=== PATIENT | female | born 1950 | race Caucasian/White ===

== ENCOUNTER 2016-09-17 10:23 | Inpatient (IN) | payer MEDICARE, BC ==
[2016-09-17 11:08] LABS: Anisocytosis Moderate; Basophils % (A) 0 %; CH 30.2; CHCM 29.2; Eosinophils # (A) 0.1 k/uL (0-0.7); Eosinophils % (A) 1 %; HCT 25.4 % (34.0-46.0); HDW 3.09; HGB 7.4 gm/dL (11.4-16.0); Hypochromasia Marked; Large Platelets Flag Slight; Luc # (Auto) 0.09; Luc % (Auto) 1; Lymphocytes # (A) 1.3 k/uL (1.0-4.8); Lymphocytes % (A) 18 %; MCH 30.5 pg (25.0-35.0); MCHC 29.2 g/dL (31.0-37.0); MCV 104.5 fL (80.0-100.0); Macrocytosis Marked; Mean Platelet Volume 11.8; Monocytes # (A) 0.4 k/uL (0-1.0); Monocytes % (A) 6 %; Neutrophils # (A) 4.9 k/uL (1.3-7.7); Neutrophils % (A) 72 %; RBC 2.43 m/uL (3.80-5.40); RDW 20.4 % (11.5-15.5); WBC 6.8 k/uL (3.8-10.6); WBC (Perox) 6.78
--- NOTE | 2016-09-17 11:16 | ED ---
Weakness HPI - General Chief complaint: Recheck/Abnormal Lab/Rx Stated complaint: Anemia Time Seen by Provider: 09/17/16 10:25 Source: patient, EMS Mode of arrival: EMS Limitations: no limitations - History of Present Illness Initial comments: This patient is a 65-year-old woman who arrives here from dialysis with the complaint that she has been feeling very fatigued, run down, and having generalized weakness. The symptoms have been going on for couple of days. Prior to this she had noted about 3-4 days of dark tarry stool, but states that the last bowel movements that she had yesterday and today did not have dark tarry stool. The patient had gone for dialysis this morning, and when her hemoglobin was checked it was reported to be 7.2. She is denying chest pain, dyspnea, syncope, but does get lightheaded. The patient denies abdominal or perianal pain. She denies nausea, vomiting, and hematemesis. MD Complaint: generalized weakness, lack of energy -: days(s) Location: generalized Improves with: none Worsens with: exertion Context: history of similar Associated Symptoms: dark stools - Related Data Home Medications Medication Instructions Recorded Confirmed ALPRAZolam [Xanax] 0.5 mg PO TID 04/07/14 09/17/16 Cinacalcet HCl [Sensipar] 30 mg PO W/SUPPER 04/07/14 09/17/16 HYDROcodone/APAP 10-325MG [[place] 1 tab PO Q6H PRN 04/07/14 09/17/16 10-325] Montelukast [Singulair] 10 mg PO HS 04/07/14 09/17/16 Simvastatin [Zocor] 40 mg PO HS 08/18/15 09/17/16 Cinacalcet HCl [Sensipar] 90 mg PO W/SUPPER 04/02/16 09/17/16 Escitalopram [Lexapro] 40 mg PO DAILY 04/02/16 09/17/16 Tiffanie's Leg Cramp Tab 2 - 3 tab PO Q6H PRN 04/02/16 09/17/16 rOPINIRole HCL [Ropinirole HCl] 2 mg PO HS 04/02/16 09/17/16 Cevimeline HCl 30 mg PO DAILY 05/28/16 09/17/16 Insulin Aspart [NovoLOG] See Protocol SQ ACHS 05/28/16 09/17/16 Calcium Acetate [PhosLo] 667 mg PO TID 09/17/16 09/17/16 Clopidogrel Bisulfate [Plavix] 75 mg PO DAILY 09/17/16 09/17/16 Docusate [Colace] 100 mg PO BID 09/17/16 09/17/16 Midodrine HCl [ProAmatine] 7.5 mg PO MOWEFR PRN 09/17/16 09/17/16 Previous Rx's Medication Instructions Recorded Pantoprazole Sodium [Protonix] 40 mg PO DAILY #30 tablet. 04/04/16 Darbepoetin Matheus [Aranesp] 40 mcg SQ Q7D #4 syringe 09/22/16 Folic Acid-Vit B Complex-Vit C 1 each PO DAILY #30 cap 09/22/16 [Nephrocaps] Allergies Allergy/AdvReac Type Severity Reaction Status Date / Time adhesive Allergy Rash/Hives Verified 09/17/16 11:22 Sulfa (Sulfonamide Allergy Rash/Hives Verified 09/17/16 11:22 Antibiotics) sulfacetamide sodium Allergy Unknown Verified 09/17/16 11:22 [From Sulfamide] Review of Systems ROS Statement: Those systems with pertinent positive or pertinent negative responses have been documented in the HPI. ROS Other: All systems not noted in ROS Statement are negative. Constitutional: Reports: weakness (Generalized weakness, no focal deficit.). Denies: fever, chills Respiratory: Denies: cough, dyspnea Cardiovascular: Denies: chest pain, palpitations, orthopnea, edema, syncope Gastrointestinal: Reports: melena. Denies: abdominal pain, nausea, vomiting, diarrhea, constipation, hematochezia Musculoskeletal: Denies: back pain Skin: Denies: rash Neurological: Denies: headache, weakness, numbness Hematological/Lymphatic: Denies: easy bleeding Past Medical History Past Medical History: Asthma, Coronary Artery Disease (CAD), Chest Pain / Angina , CVA/TIA, Diabetes Mellitus, Dialysis, Hyperlipidemia, Myocardial Infarction ( [place]), Renal Disease Additional Past Medical History / Comment(s): kidney failure, on dialysis; adult scoliosis right hip; cva in 2010 - no residual other than eyes tear frequently; heart valve closed up 02/2013, left eye macular degeneration. Hypotension with systolic blood pressures normally running below 90 and diastolic pressure below 60. Last Myocardial Infarction Date:: 02/2013 History of Any Multi-Drug Resistant Organisms: MRSA Date of last positivie culture/infection: 2009 MDRO Source:: Wound-not specified with MRSA & MDRO Acinetobacter Past Surgical History: Adenoidectomy, Cardiac Valve Replacement, Coronary Bypass /CABG, Heart Catheterization, Tonsillectomy Additional Past Surgical History / Comment(s): cabg sep 2009 x 6 vessels; AV replaced jun 2011, arthroscopies bhavya ankles, Past Anesthesia/Blood Transfusion Reactions: No Reported Reaction Type of Cardiac Device: Permanent Pacemaker Device Placement Date:: 06/04 Past Psychological History: No Psychological Hx Reported Smoking Status: Former smoker Past Alcohol Use History: Rare Additional Past Alcohol Use History / Comment(s): "couple sips of beer throughout the year" started smoking at age 14 smoked 1 ppd, quit in 1981 Past Drug Use History: None Reported - Past Family History Father Family Medical History: Congestive Heart Failure (CHF), Diabetes Mellitus Mother Family Medical History: Diabetes Mellitus Additional Family Medical History / Comment(s): blocked carotids; kidney failure Sister(s) Family Medical History: Cancer General Exam Limitations: no limitations General appearance: alert, in no apparent distress, obese Head exam: Present: atraumatic, normocephalic Eye exam: Present: normal appearance, other (Pallor). Absent: scleral icterus, conjunctival injection ENT exam: Present: mucous membranes dry Neck exam: Present: normal inspection Respiratory exam: Present: normal lung sounds bilaterally. Absent: respiratory distress, wheezes, rales, rhonchi, stridor Cardiovascular Exam: Present: regular rate, normal rhythm, systolic murmur. Absent: diastolic murmur, rubs, gallop GI/Abdominal exam: Present: soft. Absent: distended, tenderness, guarding, rebound Extremities exam: Present: normal inspection, normal capillary refill, other ( Right upper extremity access graft has a bruit and thrill.). Absent: pedal edema, calf tenderness Back exam: Absent: CVA tenderness (R), CVA tenderness (L) Neurological exam: Present: alert, CN II-XII intact. Absent: motor sensory deficit Skin exam: Present: warm, dry, intact, pallor. Absent: rash Course Vital Signs 09/17/16 09/17/16 09/17/16 10:24 10:46 11:51 Temperature 97.5 F L Pulse Rate 89 76 Pulse Rate [ Decorative Greens Cutter ] Respiratory 24 Rate Blood Pressure 74/28 62/27 Blood Pressure [Right Calf] O2 Sat by Pulse 92 L 98 Oximetry 09/17/16 09/17/16 09/17/16 12:12 12:32 13:15 Temperature Pulse Rate 77 80 76 Pulse Rate [ Decorative Greens Cutter ] Respiratory 16 Rate Blood Pressure 74/34 61/41 62/34 Blood Pressure [Right Calf] O2 Sat by Pulse 94 L Oximetry 09/17/16 09/17/16 09/17/16 14:05 15:58 16:16 Temperature 97.1 F L Pulse Rate 65 78 77 Pulse Rate [ Decorative Greens Cutter ] Respiratory 20 20 18 Rate Blood Pressure 64/37 70/31 70/31 Blood Pressure [Right Calf] O2 Sat by Pulse 95 99 Oximetry 09/17/16 09/17/16 09/17/16 16:25 16:30 17:00 Temperature 97.4 F L 97.4 F L Pulse Rate 78 72 76 Pulse Rate [ Decorative Greens Cutter ] Respiratory 18 20 20 Rate Blood Pressure 74/31 60/32 77/42 Blood Pressure [Right Calf] O2 Sat by Pulse 98 Oximetry 09/17/16 09/17/16 09/17/16 17:30 18:00 18:30 Temperature 97.4 F L 97.2 F L 97.1 F L Pulse Rate 69 68 74 Pulse Rate [ Decorative Greens Cutter ] Respiratory 16 18 18 Rate Blood Pressure 78/38 67/32 71/30 Blood Pressure [Right Calf] O2 Sat by Pulse 98 96 Oximetry 09/17/16 19:21 Temperature 97.9 F Pulse Rate Pulse Rate [ 76 Decorative Greens Cutter ] Respiratory 18 Rate Blood Pressure Blood Pressure 65/34 [Right Calf] O2 Sat by Pulse 98 Oximetry EKG Findings - EKG Comments: EKG Findings:: The twelve-lead EKG shows what appears to be a biventricular pace maker with a paced rhythm at 82 bpm. - EKG Results: EKG: interpreted by ZAHRAD Procedures - Central Line Placement Left Femoral Consent Obtained: written consent Time Out Performed: Yes Patient Placed on Monitor/Pulse Ox: Yes Prep: mask, gown, gloves Central Line Prep: Chlorhexidine scrub Local Anesthesia Used: Lidocaine 1% Ultrasound Used for Placement: Yes Central Line Lumen Inserted: triple Central Line Position: good blood return, all ports aspirated, flushed, capped, sutured in place with 2-0 silk Dressing Applied: Tegaderm Patient Tolerated Procedure: other (Initially attempted on the right without success, switch to the left and placed with no, dictation.) Medical Decision Making - Medical Decision Making Patient is a 65-year-old woman sent from dialysis for anemia and also concerns about her blood pressure. The patient is adamant that her blood pressure is always measured as hypotensive. She states that she has been told time again that when her blood pressures taken that it needs to have 30 mmHg added to it. The patient is alert and mentating well. The patient only had a 22-gauge peripheral IV, not suitable for transfusion therefore patient had central line placed by myself. I did attempt once in the right femoral, and was not able to access the vein. Switch to the left and this was performed without difficulty. Case discussed with admitting physician and also with Dr. Chung who saw the patient in the emergency department. - Lab Data Result diagrams: 09/22/16 07:12 09/22/16 07:12 Lab Results 09/17/16 09/17/16 09/17/16 Range/Units 10:50 10:50 10:50 WBC 6.8 (3.8-10.6) k/uL RBC 2.43 L (3.80-5.40) m/uL Hgb 7.4 L (11.4-16.0) gm/dL Hct 25.4 L (34.0-46.0) % MCV 104.5 H (80.0-100.0) fL MCH 30.5 (25.0-35.0) pg MCHC 29.2 L (31.0-37.0) g/dL RDW 20.4 H (11.5-15.5) % Plt Count 129 L (150-450) k/uL Neutrophils % 72 % Lymphocytes % 18 % Monocytes % 6 % Eosinophils % 1 % Basophils % 0 % Neutrophils # 4.9 (1.3-7.7) k/uL Lymphocytes # 1.3 (1.0-4.8) k/uL Monocytes # 0.4 (0-1.0) k/uL Eosinophils # 0.1 (0-0.7) k/uL Basophils # 0.0 (0-0.2) k/uL Hypochromasia Marked Anisocytosis Moderate Macrocytosis Marked PT 14.2 H (9.0-12.0) sec INR 1.5 (<1.1) APTT 24.3 (22.0-30.0) sec Sodium 143 (137-145) mmol/L Potassium 4.0 (3.5-5.1) mmol/L Chloride 94 L (98-107) mmol/L Carbon Dioxide 32 H (22-30) mmol/L Anion Gap 17 mmol/L BUN 16 (7-17) mg/dL Creatinine 1.89 H (0.52-1.04) mg/dL Est GFR (MDRD) Af Amer 32 (>60 ml/min/1.73 sqM) Est GFR (MDRD) Non-Af 27 (>60 ml/min/1.73 sqM) Glucose 165 H (74-99) mg/dL Plasma Lactic Acid Taco (0.7-2.0) mmol/L Calcium 9.1 (8.4-10.2) mg/dL Magnesium 2.2 (1.6-2.3) mg/dL Total Bilirubin 1.3 (0.2-1.3) mg/dL AST 61 H (14-36) U/L ALT 62 H (9-52) U/L Alkaline Phosphatase 201 H (38-126) U/L Troponin I (0.000-0.034) ng/mL Total Protein 7.3 (6.3-8.2) g/dL Albumin 3.8 (3.5-5.0) g/dL Blood Type Blood Type Recheck Antibody Screen Crossmatch Spec Expiration Date 09/17/16 09/17/16 09/17/16 Range/Units 10:50 10:50 10:50 WBC (3.8-10.6) k/uL RBC (3.80-5.40) m/uL Hgb (11.4-16.0) gm/dL Hct (34.0-46.0) % MCV (80.0-100.0) fL MCH (25.0-35.0) pg MCHC (31.0-37.0) g/dL RDW (11.5-15.5) % Plt Count (150-450) k/uL Neutrophils % % Lymphocytes % % Monocytes % % Eosinophils % % Basophils % % Neutrophils # (1.3-7.7) k/uL Lymphocytes # (1.0-4.8) k/uL Monocytes # (0-1.0) k/uL Eosinophils # (0-0.7) k/uL Basophils # (0-0.2) k/uL Hypochromasia Anisocytosis Macrocytosis PT (9.0-12.0) sec INR (<1.1) APTT (22.0-30.0) sec Sodium (137-145) mmol/L Potassium (3.5-5.1) mmol/L Chloride (98-107) mmol/L Carbon Dioxide (22-30) mmol/L Anion Gap mmol/L BUN (7-17) mg/dL Creatinine (0.52-1.04) mg/dL Est GFR (MDRD) Af Amer (>60 ml/min/1.73 sqM) Est GFR (MDRD) Non-Af (>60 ml/min/1.73 sqM) Glucose (74-99) mg/dL Plasma Lactic Acid Taco 2.9 H* (0.7-2.0) mmol/L Calcium (8.4-10.2) mg/dL Magnesium (1.6-2.3) mg/dL Total Bilirubin (0.2-1.3) mg/dL AST (14-36) U/L ALT (9-52) U/L Alkaline Phosphatase (38-126) U/L Troponin I 0.431 H* (0.000-0.034) ng/mL Total Protein (6.3-8.2) g/dL Albumin (3.5-5.0) g/dL Blood Type A Positive Blood Type Recheck No Antibody Screen NEGATIVE Crossmatch See Detail Spec Expiration Date 09/20/2016 - 234909/17/16 Range/Units 14:26 WBC (3.8-10.6) k/uL RBC (3.80-5.40) m/uL Hgb (11.4-16.0) gm/dL Hct (34.0-46.0) % MCV (80.0-100.0) fL MCH (25.0-35.0) pg MCHC (31.0-37.0) g/dL RDW (11.5-15.5) % Plt Count (150-450) k/uL Neutrophils % % Lymphocytes % % Monocytes % % Eosinophils % % Basophils % % Neutrophils # (1.3-7.7) k/uL Lymphocytes # (1.0-4.8) k/uL Monocytes # (0-1.0) k/uL Eosinophils # (0-0.7) k/uL Basophils # (0-0.2) k/uL Hypochromasia Anisocytosis Macrocytosis PT (9.0-12.0) sec INR (<1.1) APTT (22.0-30.0) sec Sodium (137-145) mmol/L Potassium (3.5-5.1) mmol/L Chloride (98-107) mmol/L Carbon Dioxide (22-30) mmol/L Anion Gap mmol/L BUN (7-17) mg/dL Creatinine (0.52-1.04) mg/dL Est GFR (MDRD) Af Amer (>60 ml/min/1.73 sqM) Est GFR (MDRD) Non-Af (>60 ml/min/1.73 sqM) Glucose (74-99) mg/dL Plasma Lactic Acid Taco 1.0 (0.7-2.0) mmol/L Calcium (8.4-10.2) mg/dL Magnesium (1.6-2.3) mg/dL Total Bilirubin (0.2-1.3) mg/dL AST (14-36) U/L ALT (9-52) U/L Alkaline Phosphatase (38-126) U/L Troponin I (0.000-0.034) ng/mL Total Protein (6.3-8.2) g/dL Albumin (3.5-5.0) g/dL Blood Type Blood Type Recheck Antibody Screen Crossmatch Spec Expiration Date Disposition Clinical Impression: Anemia, Congestive heart failure (CHF), Hypotension Disposition: ADMITTED IP TO THIS [facility] Condition: Stable
[2016-09-17 11:18] LABS: Calcium 9.1 mg/dL (8.4-10.2); Magnesium 2.2 mg/dL (1.6-2.3); Total Bilirubin 1.3 mg/dL (0.2-1.3); Total Protein 7.3 g/dL (6.3-8.2)
[2016-09-17 11:25] LABS: INR 1.5 (<1.1); Partial Thromboplastin Time 24.3 sec (22.0-30.0); Prothrombin Time 14.2 sec (9.0-12.0)
[2016-09-17] MEDS ORDERED: IV VANCOMYCIN PER PHARMACY 1 EACH MISC MISCELLANE PRN (12:52)
[2016-09-17] MEDS ORDERED: SODIUM CHLORIDE 0.9% 500 ML IV STA (12:53)
[2016-09-17] MEDS ORDERED: VANCOMYCIN 1,500 MG in SODIUM CHLORIDE 0.9% 250 ML IVPB STA ×2 (12:58→13:03)
--- NOTE | 2016-09-17 13:37 | XR ---
EXAMINATION TYPE: XR chest 1V portable DATE OF EXAM: 09/17/2016 1:19 PM Comparison: 04/04/2016 Clinical History: 65-year-old female hypotension Findings: Median sternotomy wires are present with post-CABG clips in the mediastinum. Left-sided ICD generator with right atrial, right ventricular, and coronary sinus leads. Heart remains mildly enlarged. There is diffuse interstitial and vascular prominence with continued p atchy consolidation mid and lower right lung with a blunted right costophrenic angle. Impression: 1. Overall stable exam. Correlate for CHF and interstitial pulmonary edema. 2. Continued small right pleural effusion with adjacent atelectasis and/or consolidation.
[2016-09-17] MEDS ORDERED: SODIUM CHLORIDE 0.9% 1,000 ML IV ONE (16:12)
[2016-09-17] MEDS ORDERED: MIDODRINE 5 MG TAB PO PRN (16:15)
[2016-09-17] MEDS ORDERED: CINACALCET 30 MG TAB PO SCH (17:30)
[2016-09-17] MEDS: HYDROcodone/APAP 10-325MG 1 EACH TAB PO PRN (18:39)
[2016-09-17 19:40] LABS: Glucose,Whole Blood 243 mg/dL (75-99)
--- NOTE | 2016-09-17 20:19 | CONS ---
DATE OF CONSULTATION: 09/17/2016 REASON FOR CONSULTATION: Hypotension and severe anemia. HISTORY OF PRESENTING ILLNESS: Ms. Prachi Hutchinson is a 65-year-old female who was seen, evaluated and examined in the emergency department. This patient presented into the hospital with problems associated with not feeling well, tired and fatigued while undergoing hemod[facility] at [facility]. Her symptoms going on for several days. With those problems, patient was checked and found to have a hemoglobin of 7.2. Patient was sent to the emergency department. She was found to be hypotensive, but, however, as per patient as well as family member present at bedside, she has a history of chronic hypotension. Past medical history is significant for: 1. Chronic persistent asthma. 2. Coronary artery disease. 3. History of cerebrovascular accident and TIA. 4. Diabetes mellitus. 5. Has been on hemodialysis. 6. Dyslipidemia. 7. Myocardial infarction. 8. Renal calculi. 9. Scoliosis on the right hip. 10. Stroke in the past. 11. History of heart surgery. 12. Left eye macular degeneration. 13. Chronic hypertension. PAST SURGICAL HISTORY: Significant for cardiac valve replacement (AV replaced in 2010), status post CABG, history of cardiac cath, angiogram, CABG x6 in 2009, history of arthroscopic knee surgeries, history of permanent pacemaker insertion. FAMILY HISTORY AND SOCIAL HISTORY: Smokes 1 pack per day. Has smoked close to 35 to 40 years, quit about 20 years ago. ( ) maybe 20 to 25 years; quit about close to 30 years ago. REVIEW OF SYSTEMS: ACCOUNTING ASSISTANT: Denies any seizure activity or loss of consciousness, hemiparesis, but does complain of generalized weakness. CARDIORESPIRATORY: Otherwise unremarkable and noncontributory. GI/: Unremarkable. MUSCULOSKELETAL/DERMATOLOGICAL: Unremarkable and noncontributory. On examination, blood pressure is 70/30 improved to 80/60 with blood transfusion, respiratory rate 18, pulse 74, temperature 97, saturation of 96% on 2 liters oxygen. HEENT EXAMINATION: Otherwise unremarkable. NECK: Slightly prominent. No bruits present. LUNGS: Bilateral good air entry without significant rales, rhonchi, or rub. HEART: Regular rate and rhythm. ABDOMEN: Soft. EXTREMITIES: Trace edema. NEUROLOGICAL EXAMINATION: Otherwise, awake and alert. EKG revealed rate and rhythm. The chest x-ray performed in the emergency department reviewed as well, revealed mild interstitial edema with very small right-sided pleural effusion along with atelectasis cannot be excluded. Consolidation cannot be excluded as well. As per review of the hard copies a developing pneumonia appears to be present on the right side as well along with cardiomegaly. Other labs are reviewed which white cell count 6800, hemoglobin 7.4, hematocrit 25, platelet count 129,000. PT, INR is 14.8 and 1.5. PTT is 24. Lactic acid is 2.9 improved to 1.0, BUN and creatinine 16 and 0.89. The troponin is 0.431, AST and ALT 61 and 62. Alkaline phosphatase 201. IMPRESSION: 1. Right lower lobe pneumonia with small right-sided pleural effusion. Recommend to treat patient with empiric antibiotics in the form of IV Rocephin and repeat chest x-ray tomorrow. 2. Severe hypotension, relative chronic hypertension and severe anemia. We will monitor and observe. 3. Anemia likely related to chronic renal failure. Occult GI loss cannot be excluded. Patient will be placed on proton pump inhibitor and we will monitor hemoglobin closely by repeating the labs tomorrow. Patient is currently undergoing 2 units of packed RBC transfusion. The patient is being admitted to the ICU. Further recommendations pending as per clinical response of the patient.
[2016-09-17 20:38] VITALS: BMI 34.0
[2016-09-17] MEDS: CALCIUM ACETATE 667 MG CAP PO SCH (20:44)
[2016-09-17 21:14] LABS: Anisocytosis Moderate; CH 30.4; CHCM 29.7; HCT 24.9 % (34.0-46.0); HDW 4.04; HGB 7.2 gm/dL (11.4-16.0); Hypochromasia Marked; MCHC 28.9 g/dL (31.0-37.0); MCV 103.7 fL (80.0-100.0); Macrocytosis Marked; Mean Platelet Volume 11.1; Poikilocytosis Moderate; RDW 20.4 % (11.5-15.5); WBC 5.5 k/uL (3.8-10.6)
[2016-09-17] MEDS ORDERED: NALOXONE 0.4 MG/ML 1 ML VIAL IV PRN (21:26)
[2016-09-17] MEDS: ALPRAZolam 0.5 MG TAB PO SCH (21:56)
[2016-09-17] MEDS: ATORVASTATIN 20 MG TAB PO SCH (21:56)
[2016-09-17] MEDS: MONTELUKAST 10 MG TAB PO SCH (21:57)
[2016-09-17] MEDS: DOCUSATE 100 MG CAP PO SCH (21:57)
[2016-09-17 22:08] LABS: Hemoglobin A1C 6.1 % (4.2-6.1)
[2016-09-17] MEDS: INSULIN LISPRO (humaLOG) 300 UNIT/3 ML VIAL SQ SCH (23:22)
[2016-09-17 23:24] LABS: Glucose,Whole Blood 194 mg/dL (75-99)
[2016-09-18] MEDS: HYDROcodone/APAP 10-325MG 1 EACH TAB PO PRN ×2 (04:23→20:36)
[2016-09-18 04:44] LABS: Anisocytosis Moderate; Basophils % (A) 0 %; CH 30.6; CHCM 30.3; Eosinophils # (A) 0.2 k/uL (0-0.7); Eosinophils % (A) 3 %; HCT 28.6 % (34.0-46.0); HGB 8.5 gm/dL (11.4-16.0); Hypochromasia Marked; Luc # (Auto) 0.16; Luc % (Auto) 3; Lymphocytes # (A) 1.2 k/uL (1.0-4.8); Lymphocytes % (A) 19 %; MCH 30.7 pg (25.0-35.0); MCHC 29.9 g/dL (31.0-37.0); MCV 102.7 fL (80.0-100.0); Macrocytosis Moderate; Mean Platelet Volume 10.4; Monocytes # (A) 0.5 k/uL (0-1.0); Monocytes % (A) 8 %; Neutrophils # (A) 4.2 k/uL (1.3-7.7); Neutrophils % (A) 68 %; Poikilocytosis Moderate; RBC 2.79 m/uL (3.80-5.40); RDW 20.7 % (11.5-15.5); WBC 6.2 k/uL (3.8-10.6); WBC (Perox) 6.65
[2016-09-18 05:00] LABS: Calcium 9.1 mg/dL (8.4-10.2); Magnesium 2.2 mg/dL (1.6-2.3); Phosphorous 4.2 mg/dL (2.5-4.5); Potassium 3.4 mmol/L (3.5-5.1); Total Bilirubin 1.2 mg/dL (0.2-1.3)
[2016-09-18] MEDS ORDERED: POTASSIUM CHLORIDE 20 MEQ in WATER FOR INJECTION 1 100ML.BAG IVPB STA (06:12)
--- NOTE | 2016-09-18 07:28 | XR ---
EXAMINATION TYPE: XR chest 1V DATE OF EXAM: 09/18/2016 6:31 AM COMPARISON: 09/17/2016 HISTORY: Hypotension TECHNIQUE: Single frontal view of the chest is obtained. FINDINGS: Postsurgical change, cardiomegaly and cardiac device stable. Diffuse bilateral airspace bilateral effusion. Prominence the right paratracheal region. This could b e related to thyroid, vascular or adenopathy. No pneumothorax. IMPRESSION: 1. Diffuse bilateral airspace disease with probable fusion differential includes pulmonary edema or d iffuse pneumonia.
[2016-09-18 07:38] LABS: Glucose,Whole Blood 142 mg/dL (75-99)
[2016-09-18] MEDS: INSULIN LISPRO (humaLOG) 300 UNIT/3 ML VIAL SQ SCH ×4 (07:48→20:36)
[2016-09-18] MEDS: CALCIUM ACETATE 667 MG CAP PO SCH ×3 (07:50→16:59)
[2016-09-18] MEDS: PANTOPRAZOLE 40 MG TABLET PO SCH (07:52)
[2016-09-18] MEDS ORDERED: CLOPIDOGREL 75 MG TAB PO SCH (09:00)
--- NOTE | 2016-09-18 09:40 | PN ---
Ms. Prachi Hutchinson is a pleasant 65-year-old female. She has a history of chronic hypertension, chronic renal failure, came in to the hospital with severe anemia, pale appearance and worsening of hypotension. The patient has been found to have hemoglobin of 7.1 and required 2 units of packed RBC. Hemoglobin has improved to 8.5. Her blood pressure remains on very low side. She has good femoral pulses, which are bounding and palpable, but, however, she has poorly palpable pulses in the upper extremity. She is arousable, opens eyes, follows simple commands. No obvious distress present. In fact when I touch her being my hands ( ), she just jumped up. Her last set of vitals include blood pressure is 44/18, respiratory rate 18, respiratory rate 20, pulse 73, temperature 98, saturation 94%. HEENT EXAMINATION: Otherwise unremarkable. NECK: Supple without any lymphadenopathy, jugular venous distention or carotid bruit. LUNGS: Bilateral good air entry is present without significant rales, rhonchi or rub. HEART: Regular rate and rhythm. S1 and S2 audible. ABDOMEN: Soft. No rebound or rigidity. EXTREMITIES: Poor peripheral pulses. NEUROLOGICAL EXAMINATION: Awake and alert. Moving all 4 extremities. No focal neurological deficits. Labs are reviewed. Medications reviewed. White cell count 6200, hemoglobin 8.5 and hematocrit 28, platelet count of 103,000. Sodium is 139, potassium 3.4. BUN and creatinine 23 and 2.4. Glucose is 142. ALT is 53. AST is 34, alk phos of 160. The vancomycin is 15.2. Current medications reviewed. Patient is on Rocephin as well as vancomycin with pharmacy to re-dose. Culture results are pending. IMPRESSION: 1. Sepsis, systemic inflammatory response syndrome-like process, source is not clear. Patient is empirically being treated with broad-spectrum antibiotics. Blood and urine cultures have been drawn in the ER. Will monitor and observe now. 2. Hypotension, likely related to severe and profound vasculopathy and history of chronic hypotension. Would recommend to monitor and observe at this point of time. 3. Severe anemia, likely chronic in nature. Will monitor renal functions as well as hemoglobin very closely. Today's chest x-ray, I have reviewed it, given the presence of bilateral infiltrate; possible pneumonia cannot be excluded. Would recommend to maintain antibiotics for pneumonia. Will follow.
[2016-09-18] MEDS: ALPRAZolam 0.5 MG TAB PO SCH ×3 (10:27→20:37)
[2016-09-18] MEDS: CEVIMELINE 30 MG CAP PO SCH (10:28)
[2016-09-18] MEDS: DOCUSATE 100 MG CAP PO SCH ×2 (10:28→20:37)
[2016-09-18] MEDS: ESCITALOPRAM 20 MG TAB PO SCH (10:28)
[2016-09-18] MEDS: FOLIC ACID-VIT B COMPLEX-VIT C 1 CAP PO SCH (10:29)
[2016-09-18] MEDS ORDERED: VANCOMYCIN 1,500 MG in SODIUM CHLORIDE 0.9% 250 ML IVPB ONE (10:30)
--- NOTE | 2016-09-18 10:54 | P.NPCON ---
History of Present Illness - Reason for Consult end stage renal disease - History of Present Illness Reason for consultation: End-stage renal disease History of present illness: Patient is a 65-year-old female seen in renal consultation for end- stage renal disease. She is maintained on hemodialysis on a Tuesday schedule. Left upper extremity AV fistula. Patient was noted to be more dyspneic during hemodialysis yesterday and felt quite weak. She was subsequently sent to the hospital. Hemoglobin was 7.2 for which she did receive 1 unit of packed red blood cell transfusion yesterday and hemoglobin is up to 8.5 today. Denies any chest pain or shortness of breath. No vomiting or diarrhea. Currently having breakfast. No other complaints at this time. Vital signs are stable. General: The patient appeared well nourished and normally developed. HEENT: Head exam is unremarkable. Neck is without jugular venous distension. LUNGS: Lungs are clear to auscultation and percussion. Breath sounds decreased. HEART: Rate and Rhythm are regular. First and second heart sounds normal. No murmurs, rubs or gallops. ABDOMEN: Abdominal exam reveals normal bowel sounds. Non-tender and non- distended. No evidence of peritonitis. EXTREMITITES: No clubbing, cyanosis, or edema. Past Medical History Past Medical History: Asthma, Coronary Artery Disease (CAD), Chest Pain / Angina , CVA/TIA, Diabetes Mellitus, Dialysis, Hyperlipidemia, Myocardial Infarction ( [place]), Renal Disease Additional Past Medical History / Comment(s): kidney failure, on dialysis; adult scoliosis right hip; cva in 2010 - no residual other than eyes tear frequently; heart valve closed up 02/2013, left eye macular degeneration. Hypotension with systolic blood pressures normally running below 90 and diastolic pressure below 60. Last Myocardial Infarction Date:: 02/2013 History of Any Multi-Drug Resistant Organisms: MRSA Date of last positivie culture/infection: 2009 MDRO Source:: Wound-not specified with MRSA & MDRO Acinetobacter Past Surgical History: Adenoidectomy, Cardiac Valve Replacement, Coronary Bypass /CABG, Heart Catheterization, Tonsillectomy Additional Past Surgical History / Comment(s): cabg sep 2009 x 6 vessels; AV replaced jun 2011, arthroscopies bhavya ankles, Past Anesthesia/Blood Transfusion Reactions: No Reported Reaction Type of Cardiac Device: Permanent Pacemaker Device Placement Date:: 06/04 Past Psychological History: No Psychological Hx Reported Smoking Status: Former smoker Past Alcohol Use History: Rare Additional Past Alcohol Use History / Comment(s): "couple sips of beer throughout the year" started smoking at age 14 smoked 1 ppd, quit in 1981 Past Drug Use History: None Reported - Past Family History Father Family Medical History: Congestive Heart Failure (CHF), Diabetes Mellitus Mother Family Medical History: Diabetes Mellitus Additional Family Medical History / Comment(s): blocked carotids; kidney failure Sister(s) Family Medical History: Cancer Medications and Allergies Home Medications Medication Instructions Recorded Confirmed Type ALPRAZolam [Xanax] 0.5 mg PO TID 04/07/14 09/17/16 History Cinacalcet HCl [Sensipar] 30 mg PO W/SUPPER 04/07/14 09/17/16 History HYDROcodone/APAP 10-325MG [[place] 1 tab PO Q6H PRN 04/07/14 09/17/16 History 10-325] Montelukast [Singulair] 10 mg PO HS 04/07/14 09/17/16 History Simvastatin [Zocor] 40 mg PO HS 08/18/15 09/17/16 History Cinacalcet HCl [Sensipar] 90 mg PO W/SUPPER 04/02/16 09/17/16 History Escitalopram [Lexapro] 40 mg PO DAILY 04/02/16 09/17/16 History Tiffanie's Leg Cramp Tab 2 - 3 tab PO Q6H PRN 04/02/16 09/17/16 History rOPINIRole HCL [Ropinirole HCl] 2 mg PO HS 04/02/16 09/17/16 History Cevimeline HCl 30 mg PO DAILY 05/28/16 09/17/16 History Insulin Aspart [NovoLOG] See Protocol SQ ACHS 05/28/16 09/17/16 History Calcium Acetate [Phoslo] 667 mg PO TID 09/17/16 09/17/16 History Clopidogrel Bisulfate [Plavix] 75 mg PO DAILY 09/17/16 09/17/16 History Docusate [Colace] 100 mg PO BID 09/17/16 09/17/16 History Midodrine HCl [ProAmatine] 7.5 mg PO MOWEFR PRN 09/17/16 09/17/16 History Allergies Allergy/AdvReac Type Severity Reaction Status Date / Time adhesive Allergy Rash/Hives Verified 09/17/16 11:22 Sulfa (Sulfonamide Allergy Rash/Hives Verified 09/17/16 11:22 Antibiotics) sulfacetamide sodium Allergy Unknown Verified 09/17/16 11:22 [From Sulfamide] Physical Exam Vitals: Vital Signs Temp Pulse Pulse Resp BP BP Pulse Ox 09/18/16 08:00 97.9 F 73 19 43/22 93 L 09/18/16 07:45 72 19 39/16 93 L 09/18/16 07:00 73 20 44/18 94 L 09/18/16 06:00 83 22 34/20 94 L 09/18/16 05:00 77 21 33/20 96 09/18/16 04:00 98.3 F 72 76 22 31/23 94 L 09/18/16 03:00 74 25 H 35/22 94 L 09/18/16 02:00 71 20 33/24 94 L 09/18/16 01:36 98 F 70 19 35/21 98 09/18/16 01:00 67 24 35/21 96 09/18/16 00:27 98.2 F 70 21 40/22 95 09/18/16 00:00 98.2 F 69 76 19 37/16 98 09/17/16 23:18 69 20 35/21 96 09/17/16 23:12 97.9 F 72 20 96 09/17/16 23:00 71 18 35/21 95 09/17/16 22:00 75 20 97 09/17/16 21:00 74 16 97 09/17/16 20:00 98.5 F 74 76 19 65/34 100 09/17/16 19:21 97.9 F 76 18 65/34 98 09/17/16 18:30 97.1 F L 74 18 71/30 96 09/17/16 18:00 97.2 F L 68 18 67/32 98 09/17/16 17:30 97.4 F L 69 16 78/38 09/17/16 17:00 97.4 F L 76 20 77/42 09/17/16 16:30 97.4 F L 72 20 60/32 09/17/16 16:25 78 18 74/31 98 09/17/16 16:16 97.1 F L 77 18 70/31 Intake and Output 09/17/16 09/18/16 09/18/16 22:59 06:59 14:59 Intake Total 510 720 120 Output Total 0 0 Balance 510 720 120 Intake: IV 310 100 Potassium Chloride 20 meq 100 In Water For Injection 1 100ml.bag @ 50 mls/hr IVPB ONCE STA Rx#: [id number] blood product 310 Intake, IV Titration 20 Amount Sodium Chloride 0.9% 1, 20 000 ml @ 20 mls/hr IV . Q24H ONE Rx#:[id number] Oral 200 100 Blood Product 310 310 Rc As-1 Unit 310 [id number] Rc As-1 Unit 310 [id number] Output: Urine 0 0 Other: Weight 92.8 kg 92.8 kg Results - Lab Results Most recent lab results Calcium 9.1 mg/dL (8.4-10.2) 09/18/16 04:15 Phosphorus 4.2 mg/dL (2.5-4.5) 09/18/16 04:15 Magnesium 2.2 mg/dL (1.6-2.3) 09/18/16 04:15 09/18/16 04:15 09/18/16 04:15 Assessment and Plan Plan: Assessment: #1. End-stage renal disease maintained on hemodialysis on a Tuesday schedule. #2. Acute anemia. Status post 1 unit of packed red blood cell transfusion. Hemoglobin 8.5 today. Questionable GI bleed. #3. Chronic kidney disease mineral bone disease. #4. Chronic hypotension maintained on Midodrine. Plan: Hemodialysis Tuesday. Check iron studies. Start Aranesp. Maintain PhosLo with meals. Nephrocaps daily. Continue to monitor hemoglobin closely and transfuse as needed. Consider GI consult. Thank you for the consultation. I will continue to follow the patient with you during her hospital stay.
[2016-09-18] MEDS ORDERED: DARBEPOETIN ALFA 40 MCG/0.4 ML SYRINGE SQ SCH (11:00)
[2016-09-18 12:51] LABS: Glucose,Whole Blood 194 mg/dL (75-99)
[2016-09-18 17:17] LABS: Glucose,Whole Blood 174 mg/dL (75-99)
[2016-09-18] MEDS: CINACALCET 30 MG TAB PO SCH (17:54)
--- NOTE | 2016-09-18 19:02 | HP ---
DATE OF ADMISSION: CHIEF COMPLAINT: Fatigue and weakness. HISTORY OF PRESENT ILLNESS: This 65-year-old woman with a past history of asthma, history of coronary artery disease, history of diabetes mellitus, history of chronic renal disease on hemodialysis, history of adenoidectomy, history of MRSA, history of cardiac valve replacement, being followed by in the outpatient setting was complaining of tiredness and weakness. The patient was taken from the hemodialysis and patient came to [facility]. Hemoglobin is found to be 7.2. The patient admitted for further evaluation and treatment in the ICU. Patient being closely monitored. The patient's blood pressure also was in systolic 40s consistently but the patient is doing fine otherwise. The patient apparently had condition causing severe peripheral vascular disease, which was diagnosed in . Results not available at this time. Please refer to previous notes and Dr. Chung's notes for further details. There is no history of fever, rigors. No history of headache, loss of consciousness, seizures. PAST MEDICAL HISTORY: History of asthma, CAD, history of chest pain, CVA, TIA, diabetes mellitus type 2, hemodialysis, hyperlipidemia, history of myocardial infarction, history of MRSA. MEDICATIONS: Prior to admission include home medications are: 1. Plavix 75 mg p.o. daily. 2. Primatene 7.5 Tuesday, Tuesday, Tuesday. 3. Colace 100 mg p.o. b.i.d. 4. PhosLo 667 t.i.d. 6. Xanax 0.5 t.i.d. 8. Lexapro 40 mg p.o. daily. 9. Sensipar 90 mg supper and 30 mg supper. 10. Requip 2 mg q.h.s. 11. Zocor 40 mg q.h.s. 12. Protonix 40 mg daily. 13. Singulair 10 mg q.h.s. 14. NovoLog a.c. and at bedtime. ALLERGIES: ADHESIVES, SULFA, SULFONAMIDE. FAMILY HISTORY: History of CHF, diabetes mellitus, carotid disease and kidney failure. SOCIAL HISTORY: Previous history of smoking. No history of current smoking or alcohol intake. REVIEW OF SYSTEMS: ENT: No diminished hearing, diminished vision. CARDIOVASCULAR: As mentioned earlier. RESPIRATORY: As mentioned earlier. GI: No nausea. : No dysuria. NERVOUS SYSTEM: No numbness or weakness. ALLERGY/IMMUNOLOGY: As mentioned earlier. MUSCULOSKELETAL: As mentioned earlier. HEMATOLOGY: No history of anemia. ENDOCRINE: As mentioned earlier. CONSTITUTIONAL: As mentioned earlier. DERMATOLOGY: Negative. RHEUMATOLOGY: Negative. PSYCHIATRY: As mentioned earlier. PHYSICAL EXAMINATION: Alert and oriented x3. Pulse is 83, blood pressure 134/59, respiration 17, temperature 98 degrees, pulse ox 94% on 2-L. HEENT: Conjunctivae normal. Oral mucosa moist. Minimal pallor. NECK: No jugular venous distention. No carotid bruit. No lymph node enlargement. CARDIOVASCULAR: S1 and S2, ejection systolic murmur present. RESPIRATORY: Breath sounds diminished at the bases. No rhonchi, no crackles. ABDOMEN: Soft, nontender, no mass palpable. LEGS: No edema, no swelling. NERVOUS SYSTEM: Higher function as mentioned. Moves all four limbs. No focal motor deficits. LYMPHATIC: No lymphadenopathy in the neck, axillae or groin. SKIN: No ulcer, rash or bleeding. LABS: WBC 6, hemoglobin 8.5, sodium 130, potassium 3.4, creatinine is 2.4. ASSESSMENT: 1. hypotension, possibly multifactorial. 2. Anemia, possibly gastrointestinal bleed. 3. Renal failure, chronic. 4. Chronic kidney disease, stage5. 5. Hypokalemia. 6. Macrocytosis. 7. Troponin 0.431, indeterminate. 8. Increased AST, ALT, improving. 9. Obesity with body mass index of 34. 10. History of asthma. 11. History of coronary artery disease, angina. 12. History of cerebrovascular accident and transient ischemic attack. 13. Diabetes mellitus type 2. 14. Chronic renal failure on hemodialysis. 15. Endstage renal disease with chronic kidney disease, stage V. 16. Hyperlipidemia. 17. History of myocardial infarction. 18. History of scoliosis. 19. History of methicillin-resistant Staphylococcus aureus and Acinetobacter. 20. History of coronary artery disease, coronary artery bypass grafting and cardiac valve replacement. 21. Remote history nicotine dependence. RECOMMENDATIONS AND DISCUSSION: In this 65-year-old woman who presented with multiple complex medical issues, we will monitor the patient closely. Otherwise, at this time I recommend monitor hemoglobin closely. The patient already received 2 units of transfusions and hemoglobin is currently 8.5. The patient did have colonoscopy and endoscopy that showed colonic polyps previously. Continue to monitor. Guarded prognosis because of multiple complex medical issues. I would also monitor the patient closely. Continue the rest of the medications, midodrine. Further recommendations to follow. MTDD
[2016-09-18] MEDS: ATORVASTATIN 20 MG TAB PO SCH (20:37)
[2016-09-18] MEDS: MONTELUKAST 10 MG TAB PO SCH (20:37)
[2016-09-18 20:38] LABS: Glucose,Whole Blood 212 mg/dL (75-99)
[2016-09-19 04:58] LABS: Calcium 8.2 mg/dL (8.4-10.2); Magnesium 2.2 mg/dL (1.6-2.3); Phosphorous 4.4 mg/dL (2.5-4.5); Potassium 3.9 mmol/L (3.5-5.1); Total Bilirubin 0.9 mg/dL (0.2-1.3); Total Protein 6.1 g/dL (6.3-8.2)
[2016-09-19 06:33] LABS: Anisocytosis Slight; CH 30.4; HGB 8.8 gm/dL (11.4-16.0); Hypochromasia Marked; Large Platelets Flag Slight; Macrocytosis Marked; Neutrophils % (A) 66 %; Poikilocytosis Slight; RDW 19.9 % (11.5-15.5)
[2016-09-19 06:41] LABS: Basophils % (A) 0 %; CHCM 29.4; Eosinophils # (A) 0.2 k/uL (0-0.7); Eosinophils % (A) 4 %; HCT 30.3 % (34.0-46.0); HDW 3.84; Luc # (Auto) 0.16; Luc % (Auto) 3; Lymphocytes # (A) 1.2 k/uL (1.0-4.8); Lymphocytes % (A) 20 %; MCH 30.4 pg (25.0-35.0); MCV 104.7 fL (80.0-100.0); Mean Platelet Volume 10.6; Monocytes # (A) 0.5 k/uL (0-1.0); Monocytes % (A) 8 %; RBC 2.89 m/uL (3.80-5.40); WBC 6.1 k/uL (3.8-10.6); WBC (Perox) 6.31
[2016-09-19] MEDS: HYDROcodone/APAP 10-325MG 1 EACH TAB PO PRN ×2 (06:50→23:22)
--- NOTE | 2016-09-19 07:46 | XR ---
EXAMINATION TYPE: XR chest 1V DATE OF EXAM: 09/19/2016 7:13 AM COMPARISON: 09/18/2016 HISTORY: Shortness of breath TECHNIQUE: Single frontal view of the chest is obtained. FINDINGS: Bilateral airspace disease and pleural effusion stable. Postoperative change and cardiac d evice stable. Marked cardiomegaly stable. IMPRESSION: 1. Bilateral diffuse airspace disease. Differential includes pneumonia or pulmonary edema.
[2016-09-19] MEDS: CALCIUM ACETATE 667 MG CAP PO SCH ×3 (08:01→17:51)
[2016-09-19] MEDS: ESCITALOPRAM 20 MG TAB PO SCH (08:02)
[2016-09-19] MEDS: PANTOPRAZOLE 40 MG TABLET PO SCH (08:03)
[2016-09-19] MEDS: FOLIC ACID-VIT B COMPLEX-VIT C 1 CAP PO SCH (08:03)
[2016-09-19] MEDS: DOCUSATE 100 MG CAP PO SCH ×2 (08:03→21:01)
[2016-09-19] MEDS: CEVIMELINE 30 MG CAP PO SCH (08:04)
[2016-09-19] MEDS: ALPRAZolam 0.5 MG TAB PO SCH ×3 (08:05→22:59)
[2016-09-19] MEDS: INSULIN LISPRO (humaLOG) 300 UNIT/3 ML VIAL SQ SCH ×4 (08:10→21:15)
[2016-09-19 08:14] LABS: Glucose,Whole Blood 148 mg/dL (75-99)
[2016-09-19 09:06] LABS: Manual Review Performed; Polychromasia Present
--- NOTE | 2016-09-19 10:09 | P.PN ---
Subjective Patient seen in follow-up for end-stage renal disease. She is maintained on hemodialysis on a Tuesday schedule. Patient presented with symptomatic anemia. She did receive packed red blood cell transfusion this admission. Hemoglobin stable at 8.8 today. She denies any active bleeding. No melena or hematochezia. Denies chest pain or shortness of breath. No active complaints at this time. Vital signs are stable. General: The patient appeared well nourished and normally developed. HEENT: Head exam is unremarkable. Neck is without jugular venous distension. LUNGS: Lungs are clear to auscultation and percussion. Breath sounds decreased. HEART: Rate and Rhythm are regular. First and second heart sounds normal. No murmurs, rubs or gallops. ABDOMEN: Abdominal exam reveals normal bowel sounds. Non-tender and non- distended. No evidence of peritonitis. EXTREMITITES: No clubbing, cyanosis, or edema. Objective - Vital Signs Vital signs: Vital Signs Temp 98.2 F 09/19/16 08:00 Pulse 70 09/19/16 10:00 Resp 25 H 09/19/16 10:00 BP 42/24 09/19/16 05:00 Pulse Ox 97 09/19/16 10:00 Intake & Output 09/18/16 09/19/16 09/19/16 18:59 06:59 18:59 Intake Total 910 200 45 Output Total 0 0 Balance 910 200 45 Weight 90.5 kg Intake: IV 100 180 45 Potassium Chloride 20 meq 100 In Water For Injection 1 100ml.bag @ 50 mls/hr IVPB ONCE STA Rx#: [id number] Sodium Chloride 0.9% 1, 180 45 000 ml @ 20 mls/hr IV . Q24H ONE Rx#:[id number] Intake, IV Titration 510 20 Amount Sodium Chloride 0.9% 1, 160 20 000 ml @ 20 mls/hr IV . Q24H ONE Rx#:[id number] Vancomycin 1,500 mg In 250 Sodium Chloride 0.9% 250 ml @ 125 mls/hr IVPB ONCE ONE Rx#:[id number] cefTRIAXone 1,000 mg In 100 Sodium Chloride 0.9% 50 ml @ 100 mls/hr IVPB DAILY@1600 [facility] Rx#: [id number] Oral 300 Output: Urine 0 0 - Labs CBC & Chem 7: 09/19/16 04:15 09/19/16 04:15 Labs: Abnormal Lab Results - Last 24 Hours (Table) 09/18/16 09/18/16 09/18/16 Range/Units 04:15 12:48 17:15 RBC (3.80-5.40) m/uL Hgb (11.4-16.0) gm/dL Hct (34.0-46.0) % MCV (80.0-100.0) fL MCHC (31.0-37.0) g/dL RDW (11.5-15.5) % Plt Count (150-450) k/uL Sodium (137-145) mmol/L Chloride (98-107) mmol/L BUN (7-17) mg/dL Creatinine (0.52-1.04) mg/dL Glucose (74-99) mg/dL POC Glucose (mg/dL) 194 H 174 H (75-99) mg/dL Calcium (8.4-10.2) mg/dL TIBC 219 L (265-497) ug/dL Ferritin 895 H (11-264) ng/mL Alkaline Phosphatase (38-126) U/L Total Protein (6.3-8.2) g/dL Albumin (3.5-5.0) g/dL 09/18/16 09/19/16 09/19/16 Range/Units 20:36 04:15 04:15 RBC 2.89 L (3.80-5.40) m/uL Hgb 8.8 L (11.4-16.0) gm/dL Hct 30.3 L (34.0-46.0) % MCV 104.7 H (80.0-100.0) fL MCHC 29.0 L (31.0-37.0) g/dL RDW 19.9 H (11.5-15.5) % Plt Count 93 L (150-450) k/uL Sodium 136 L (137-145) mmol/L Chloride 94 L (98-107) mmol/L BUN 32 H (7-17) mg/dL Creatinine 3.50 H (0.52-1.04) mg/dL Glucose 170 H (74-99) mg/dL POC Glucose (mg/dL) 212 H (75-99) mg/dL Calcium 8.2 L (8.4-10.2) mg/dL TIBC (265-497) ug/dL Ferritin (11-264) ng/mL Alkaline Phosphatase 173 H (38-126) U/L Total Protein 6.1 L (6.3-8.2) g/dL Albumin 3.1 L (3.5-5.0) g/dL 09/19/16 Range/Units 08:09 RBC (3.80-5.40) m/uL Hgb (11.4-16.0) gm/dL Hct (34.0-46.0) % MCV (80.0-100.0) fL MCHC (31.0-37.0) g/dL RDW (11.5-15.5) % Plt Count (150-450) k/uL Sodium (137-145) mmol/L Chloride (98-107) mmol/L BUN (7-17) mg/dL Creatinine (0.52-1.04) mg/dL Glucose (74-99) mg/dL POC Glucose (mg/dL) 148 H (75-99) mg/dL Calcium (8.4-10.2) mg/dL TIBC (265-497) ug/dL Ferritin (11-264) ng/mL Alkaline Phosphatase (38-126) U/L Total Protein (6.3-8.2) g/dL Albumin (3.5-5.0) g/dL Assessment and Plan Plan: Assessment: #1. End-stage renal disease maintained on hemodialysis on a Tuesday schedule. #2. Acute anemia. Status post 1 unit of packed red blood cell transfusion. Hemoglobin 8.8 today. Questionable GI bleed. #3. Chronic kidney disease mineral bone disease. #4. Chronic hypotension maintained on Midodrine. Plan: Hemodialysis Tuesday. Maintain Aranesp. Maintain PhosLo with meals. Nephrocaps daily. Continue to monitor hemoglobin closely and transfuse as needed. No signs of active bleed at this time.
--- NOTE | 2016-09-19 11:16 | CONS ---
DATE OF CONSULTATION: 09/19/2016 Requesting physician: . REASON FOR CONSULTATION: Severe symptomatic anemia. HISTORY OF PRESENT ILLNESS: Patient is a 65-year-old pleasant white female with history of end-stage renal disease on hemodialysis, history of diabetes mellitus, congestive heart failure, coronary artery disease was admitted to the hospital because of symptomatic anemia. She was noted to have a hemoglobin of 7.2 and she was admitted to the hospital for further evaluation and management. Since being in the hospital, she has been significantly hypertensive and hence is monitored closely in the intensive care unit. The reason we are consulted is for symptomatic anemia. The patient presently denies any abdominal pain. She reports no nausea, vomiting. Denies any rectal bleeding or melena. She was given 2 units of PRBC transfusion and hemoglobin is 9. On review of her records, she did have an upper endoscopy as well as colonoscopy by Dr. Gregorio in 2015. The colonoscopy was done in March 2016 that showed 2 small polyps in the cecum and sigmoid colon that were removed. She had the upper endoscopy as a part of evaluation of anemia June 2016 and was noted to have some gastritis. Past medical history is significant for end stage renal disease on hemodialysis, history of CVA and transient ischemic attack in the past, diabetes mellitus, hypertension, hyperlipidemia, history of coronary artery disease, status post OH in the past. Medications at home include: 1. Plavix. 2. Colace. 3. PhosLo. 4. Xanax. 5. Lexapro. 6. Sensipar. 7. Requip. 8. Zocor. 9. Protonix. 10. Singulair. 11. Novolog. ALLERGIES TO SULFA AND SULFONAMIDE. SOCIAL HISTORY: Remote history of smoking. No alcohol use. FAMILY HISTORY: Mom has diabetes mellitus and congestive heart failure, dad has chronic renal failure. REVIEW OF SYSTEMS: CARDIOPULMONARY: She does complain of some shortness of breath. GENITOURINARY: No dysuria or hematuria. MUSCULOSKELETAL: Unremarkable. SKIN: Unremarkable. ENDOCRINE: Unremarkable. PSYCHIATRIC: Unremarkable. NEUROLOGY: Unremarkable. ( ) unremarkable. ( ), no fever, chills, night sweats. On physical examination, she appears comfortable. Vital signs are stable. Blood pressure is ( ). Pulse rate 77, temperature 98. HEENT: Unremarkable. Conjunctivae pink. Sclerae anicteric. Oral cavity, no lesions. NECK: No JVD or lymph node enlargement. Chest was clear to auscultation. HEART: Regular rate and rhythm. ABDOMEN: Soft. Bowel sounds are positive. It was slightly obese. EXTREMITIES: No pedal edema. SKIN: No rashes. NEURO: He is alert and oriented x3. No focal deficits. Labs done at the time of admission in the hospital: Hemoglobin was 7.2, after a unit of blood it is 8.8 today, MCV is 104.7, platelets 93,000. BUN 32, creatinine 3.5. AST/ALT 22 and 47 respectively. Alkaline phosphatase 173. IMPRESSION: 1. Macrocytic anemia and clinically no evidence of active gastrointestinal bleed. The patient did have an upper endoscopy as well as colonoscopy by Dr. Gregorio in 2016 and was noted to have small polyps as well as some gastritis. Since she does not have any evidence of active ongoing bleeding, no need for any endoscopic work-up at the present. 2. End stage renal disease on hemodialysis. 3. Diabetes mellitus. 4. Hypertension. 5. Coronary artery disease. RECOMMENDATIONS: 1. Agree with PRBC transfusion. 2. Her hemoglobin presently is stable after a unit of PRBC transfusion and at this time we will continue to monitor her closely. No plans for any endoscopic intervention at the present time. Thank you for this consultation.
[2016-09-19 13:11] LABS: Glucose,Whole Blood 178 mg/dL (75-99)
[2016-09-19 17:42] LABS: Glucose,Whole Blood 167 mg/dL (75-99)
[2016-09-19] MEDS: CINACALCET 30 MG TAB PO SCH (17:50)
[2016-09-19] MEDS: MONTELUKAST 10 MG TAB PO SCH (21:01)
[2016-09-19] MEDS: ATORVASTATIN 20 MG TAB PO SCH (21:01)
[2016-09-19 21:18] LABS: Glucose,Whole Blood 171 mg/dL (75-99)
--- NOTE | 2016-09-19 21:29 | PN ---
I am covering for . This 65-year-old woman was admitted with a fatigue and weakness, possibly anemia. Gastrointestinal blood loss has been suspected. After transfusion, hemoglobin stable at this time around 8.8. Creatinine is 3.5. Hemodialysis is continued. Of note the patient also has significant hypotension, which is probably because of peripheral vascular disease. Dr. Salgado from [facility] has seen the patient previously. Past medical history reviewed. REVIEW OF SYSTEMS: CARDIOVASCULAR: No angina or palpitations. RESPIRATORY: As mentioned earlier. GASTROINTESTINAL: No nausea. : No dysuria. Nervous system: No numbness, weakness. Current medications are reviewed and include: 1. [place] 10 mg q6h p.r.n. 2. Xanax 0.25 t.i.d. 3. Lipitor 20 mg. 4. PhosLo 667 t.i.d. 5. ExVac 30 mg daily. 6. Sensipar 120 mg daily. 7. Iron sulfate 40 mg p.o. daily 7 days. 8. Colace 100 mg b.i.d. 9. Lexapro 40 mg daily. 10. Humalog a.c. and at bedtime. 11. ProAmatine. 12. Nephrocaps. 13. Protonix. PHYSICAL EXAMINATION: Patient is alert and oriented x3. Pulse 68, blood pressure ntd and respiratory rate 22, temperature 98.2, pulse ox 97% on 4 L. HEENT: Conjunctivae normal. Oral mucosa moist. NECK: No jugular venous distention. No carotid bruit. No lymph node enlargement. CARDIOVASCULAR: S1, S2 muffled. RESPIRATORY: Breath sounds diminished at the bases. A few scattered rhonchi, no crackles. ABDOMEN: Soft, obese, nontender. No mass palpable. Legs: No edema. No swelling. Nervous system: Higher functions as mentioned earlier. Alert and oriented x3. Moves all 4 limbs. No focal motor or sensory deficits. Mild diffuse weakness. LYMPHATICS: No lymph nodes palpable in the neck, axillae or groin. SKIN: No ulcer, rash or bleeding. LABS: WBC 6.9, hemoglobin is 8.8, sodium 133, creatinine 3.50. ASSESSMENT: 1. Anemia, possibly gastrointestinal bleed associated with fatigue and weakness. 2. Hypotension, possibly secondary from possible peripheral vascular disease. 3. End-stage renal disease, chronic kidney disease, stage V on hemodialysis. 4. Hypokalemia. 5. Macrocytosis. 6. Troponin 0.4 indeterminate. 7. Increased AST, ALT, improving. 8. Obesity with body mass index of 34. 9. History of asthma. 10. History of coronary artery disease, angina. 11. History of cerebrovascular accident, transient ischemic attack. 12. Diabetes mellitus type 2. 13. History of hyperlipidemia. 14. History of myocardial infarction. 15. History of scoliosis. 16. History of methicillin-resistant Staphylococcus aureus and Acinetobacter. 17. History of coronary artery disease, coronary artery bypass grafting and cardiac valve replacement. 18. Remote history nicotine dependence. 19. FULL CODE. RECOMMENDATIONS AND DISCUSSION: In this 65-year-old woman who presented with multiple complex medical issues, we will monitor the patient closely. Continue the current medications. Continue symptomatic treatment. We will monitor hemoglobin closely. Continue hemodialysis. Monitor blood pressure closely and as mentioned earlier could be . We will avoid adding further hypertension medications because of the patient is essentially behaving like baseline as per her the family. Continue to monitor. follow. See orders for further details. MTDD
[2016-09-20 05:17] LABS: Anisocytosis Moderate; CH 30.9; CHCM 30.3; HCT 29.1 % (34.0-46.0); HDW 3.77; HGB 8.6 gm/dL (11.4-16.0); Hypochromasia Marked; MCH 30.6 pg (25.0-35.0); MCHC 29.7 g/dL (31.0-37.0); MCV 103.3 fL (80.0-100.0); Macrocytosis Moderate; Mean Platelet Volume 10.6; Poikilocytosis Slight; RBC 2.82 m/uL (3.80-5.40); RDW 20.1 % (11.5-15.5); WBC 5.4 k/uL (3.8-10.6)
[2016-09-20 05:21] LABS: Calcium 7.4 mg/dL (8.4-10.2); Magnesium 2.2 mg/dL (1.6-2.3); Phosphorous 4.6 mg/dL (2.5-4.5); Potassium 4.1 mmol/L (3.5-5.1); Total Bilirubin 0.8 mg/dL (0.2-1.3)
[2016-09-20 05:50] LABS: Add Differential Manual Differential
[2016-09-20 05:52] LABS: Nucleated Red Blood Cells 0 /100 WBC (0-0); Total Cells Counted 100
[2016-09-20 05:53] LABS: Manual Review Performed
--- NOTE | 2016-09-20 07:27 | XR ---
EXAMINATION TYPE: XR chest 1V DATE OF EXAM: 09/20/2016 6:37 AM COMPARISON: 09/19/2016 HISTORY: 65 year-old female shortness of breath TECHNIQUE: Single frontal view of the chest is obtained. FINDINGS: Median sternotomy wires are present with post-CABG clips. Left anterior chest wall AICD generator wit h right atrial, right ventricular, and coronary sinus leads. Diffuse interstitial and patchy airspace opacities greater on the right side. The indistinctness of the pulmonary vasculature on the left ashtyn ears slightly worsened from prior. Possible small right-sided pneumothorax for which attention is rec ommended on follow-up. Some fluid is seen thickening the minor fissure. IMPRESSION: 1. Findings suggest CHF with pulmonary edema, stable to minimally worsened. 2. Possible small right-sided pneumothorax, 10% by volume, for which follow-up is recommended. Shon marmolejo called to 6 ICU and given to nurse Nato at 7:20 AM. Notified that the patient did not have any rec ent surgery. This makes a prominent skin fold a more likely possibility. Attention on follow-up.
[2016-09-20 07:42] LABS: Glucose,Whole Blood 142 mg/dL (75-99)
--- NOTE | 2016-09-20 08:09 | P.PN ---
Subjective Principal diagnosis: Anemia with history of chronic renal failure. This is a 65-year-old white female with known history of chronic renal failure admitted for hypertension and anemia. She's had 2 units packed red blood cells and that is now doing quite well. Blood pressure is not nominal. She is fairly symptomatic, however her states that she has had significant weakness and has difficulty transferring. We will get her to physical therapy. Question need for ECF placement for rehab. Objective - Vital Signs Vital signs: Vital Signs Temp 97.8 F 09/20/16 04:00 Pulse 71 09/20/16 07:00 Resp 21 09/20/16 07:00 BP 42/24 09/19/16 05:00 Pulse Ox 95 09/20/16 07:00 Intake & Output 09/19/16 09/20/16 09/20/16 18:59 06:59 18:59 Intake Total 120 165 15 Output Total 0 0 0 Balance 120 165 15 Weight 90.8 kg Intake: IV 120 165 15 0.9 KVO 165 15 Sodium Chloride 0.9% 1, 120 000 ml @ 20 mls/hr IV . Q24H ONE Rx#:[id number] Output: Urine 0 0 0 - Constitutional General appearance: Present: obese - EENT Eyes: Present: anicteric sclerae. Absent: abnormal pupil - Respiratory Respiratory: bilateral: CTA - Cardiovascular Rhythm: regular - Gastrointestinal General gastrointestinal: Present: soft. Absent: tenderness - Musculoskeletal Musculoskeletal: Present: generalized weakness - Psychiatric Psychiatric: Present: A&O x's 3, appropriate affect - Labs CBC & Chem 7: 09/20/16 05:00 09/20/16 05:00 Labs: Abnormal Lab Results - Last 24 Hours (Table) 09/19/16 09/19/16 09/19/16 Range/Units 04:15 08:09 13:10 RBC 2.89 L (3.80-5.40) m/uL Hgb 8.8 L (11.4-16.0) gm/dL Hct 30.3 L (34.0-46.0) % MCV 104.7 H (80.0-100.0) fL MCHC 29.0 L (31.0-37.0) g/dL RDW 19.9 H (11.5-15.5) % Plt Count 93 L (150-450) k/uL Sodium (137-145) mmol/L Chloride (98-107) mmol/L BUN (7-17) mg/dL Creatinine (0.52-1.04) mg/dL Glucose (74-99) mg/dL POC Glucose (mg/dL) 148 H 178 H (75-99) mg/dL Calcium (8.4-10.2) mg/dL Phosphorus (2.5-4.5) mg/dL Alkaline Phosphatase (38-126) U/L Total Protein (6.3-8.2) g/dL Albumin (3.5-5.0) g/dL 09/19/16 09/19/16 09/20/16 Range/Units 17:40 21:15 05:00 RBC 2.82 L (3.80-5.40) m/uL Hgb 8.6 L (11.4-16.0) gm/dL Hct 29.1 L (34.0-46.0) % MCV 103.3 H (80.0-100.0) fL MCHC 29.7 L (31.0-37.0) g/dL RDW 20.1 H (11.5-15.5) % Plt Count 101 L (150-450) k/uL Sodium (137-145) mmol/L Chloride (98-107) mmol/L BUN (7-17) mg/dL Creatinine (0.52-1.04) mg/dL Glucose (74-99) mg/dL POC Glucose (mg/dL) 167 H 171 H (75-99) mg/dL Calcium (8.4-10.2) mg/dL Phosphorus (2.5-4.5) mg/dL Alkaline Phosphatase (38-126) U/L Total Protein (6.3-8.2) g/dL Albumin (3.5-5.0) g/dL 09/20/16 09/20/16 Range/Units 05:00 07:41 RBC (3.80-5.40) m/uL Hgb (11.4-16.0) gm/dL Hct (34.0-46.0) % MCV (80.0-100.0) fL MCHC (31.0-37.0) g/dL RDW (11.5-15.5) % Plt Count (150-450) k/uL Sodium 136 L (137-145) mmol/L Chloride 94 L (98-107) mmol/L BUN 39 H (7-17) mg/dL Creatinine 4.30 H (0.52-1.04) mg/dL Glucose 114 H (74-99) mg/dL POC Glucose (mg/dL) 142 H (75-99) mg/dL Calcium 7.4 L (8.4-10.2) mg/dL Phosphorus 4.6 H (2.5-4.5) mg/dL Alkaline Phosphatase 167 H (38-126) U/L Total Protein 6.0 L (6.3-8.2) g/dL Albumin 3.0 L (3.5-5.0) g/dL Microbiology - Last 24 Hours (Table) 09/18/16 23:00 Blood Culture - Preliminary Blood No Growth after 24 hours Assessment and Plan (1) Anemia Status: Acute (2) Congestive heart failure (CHF) Status: Acute (3) Hypotension Status: Acute (4) Chronic renal failure syndrome Status: Acute (5) Hx of aortic valve replacement Status: Acute Plan: If okay with press supervisor, we will transfer to general medical floor with telemetry. [place] [facility] issues with physical therapy. Discharge planning for possible ECF placement for rehab. Check CBC and see me in a.m. Multiple issues regarding multiple comorbidities.
[2016-09-20] MEDS: ESCITALOPRAM 20 MG TAB PO SCH (08:21)
[2016-09-20] MEDS: CEVIMELINE 30 MG CAP PO SCH (08:21)
[2016-09-20] MEDS: CALCIUM ACETATE 667 MG CAP PO SCH ×3 (08:21→17:39)
[2016-09-20] MEDS: FOLIC ACID-VIT B COMPLEX-VIT C 1 CAP PO SCH (08:21)
[2016-09-20] MEDS: DOCUSATE 100 MG CAP PO SCH ×2 (08:22→21:35)
[2016-09-20] MEDS: PANTOPRAZOLE 40 MG TABLET PO SCH (08:22)
[2016-09-20] MEDS: INSULIN LISPRO (humaLOG) 300 UNIT/3 ML VIAL SQ SCH ×4 (08:25→21:45)
[2016-09-20] MEDS: ALPRAZolam 0.5 MG TAB PO SCH ×3 (08:25→21:29)
--- NOTE | 2016-09-20 09:21 | PN ---
DATE OF SERVICE: 09/19/2016 She feels weak at this time and feels slightly scared but does not complain of any shortness of breath or pain. On physical examination, blood pressures have been recorded to show a mean of 20 and 30; however, the patient is asymptomatic. Her respiratory rate is 17, pulse rate of 70, temperature 98.2, O2 sat on 2 L by nasal cannula is 92%. HEENT is unremarkable. Chest is clear. Cardiovascular system reveals an S1, S2. Abdomen is soft. There is no edema. Patient has extremities that are warm. Labs reveal a white count of 6.1, hemoglobin of 8.8. Sodium 136, potassium 3.9, chloride 94, bicarb 29, BUN 32, creatinine of 3.5. IMPRESSION: 1. Acute gastrointestinal bleed and symptomatic anemia. 2. Inaccurate blood pressures, which may in part be due to her shunt. 3. Chronic kidney disease which is end-stage for which she is on dialysis. Would recommend trying to check Dinamap over the legs. Continue to watch her closely in the ICU.
--- NOTE | 2016-09-20 09:39 | P.PN ---
Subjective Patient seen in follow-up for end-stage renal disease. She is maintained on hemodialysis on a Tuesday schedule. Patient presented with symptomatic anemia. She did receive packed red blood cell transfusion this admission. Hemoglobin stable at 8.6 today. She denies any active bleeding. No melena or hematochezia. Denies chest pain or shortness of breath. No active complaints at this time. Vital signs are stable. General: The patient appeared well nourished and normally developed. HEENT: Head exam is unremarkable. Neck is without jugular venous distension. LUNGS: Lungs are clear to auscultation and percussion. Breath sounds decreased. HEART: Rate and Rhythm are regular. First and second heart sounds normal. No murmurs, rubs or gallops. ABDOMEN: Abdominal exam reveals normal bowel sounds. Non-tender and non- distended. No evidence of peritonitis. EXTREMITITES: No clubbing, cyanosis, or edema. Objective - Vital Signs Vital signs: Vital Signs Temp 97.8 F 09/20/16 04:00 Pulse 92 09/20/16 08:00 Resp 22 09/20/16 08:00 BP 42/24 09/19/16 05:00 Pulse Ox 94 L 09/20/16 08:00 Intake & Output 09/19/16 09/20/16 09/20/16 18:59 06:59 18:59 Intake Total 120 165 35 Output Total 0 0 0 Balance 120 165 35 Weight 90.8 kg Intake: IV 120 165 35 0.9 KVO 165 35 Sodium Chloride 0.9% 1, 120 000 ml @ 20 mls/hr IV . Q24H ONE Rx#:[id number] Output: Urine 0 0 0 Other: # Bowel Movements 0 - Labs CBC & Chem 7: 09/20/16 05:00 09/20/16 05:00 Labs: Abnormal Lab Results - Last 24 Hours (Table) 09/19/16 09/19/16 09/19/16 Range/Units 13:10 17:40 21:15 RBC (3.80-5.40) m/uL Hgb (11.4-16.0) gm/dL Hct (34.0-46.0) % MCV (80.0-100.0) fL MCHC (31.0-37.0) g/dL RDW (11.5-15.5) % Plt Count (150-450) k/uL Sodium (137-145) mmol/L Chloride (98-107) mmol/L BUN (7-17) mg/dL Creatinine (0.52-1.04) mg/dL Glucose (74-99) mg/dL POC Glucose (mg/dL) 178 H 167 H 171 H (75-99) mg/dL Calcium (8.4-10.2) mg/dL Phosphorus (2.5-4.5) mg/dL Alkaline Phosphatase (38-126) U/L Total Protein (6.3-8.2) g/dL Albumin (3.5-5.0) g/dL 09/20/16 09/20/16 09/20/16 Range/Units 05:00 05:00 07:41 RBC 2.82 L (3.80-5.40) m/uL Hgb 8.6 L (11.4-16.0) gm/dL Hct 29.1 L (34.0-46.0) % MCV 103.3 H (80.0-100.0) fL MCHC 29.7 L (31.0-37.0) g/dL RDW 20.1 H (11.5-15.5) % Plt Count 101 L (150-450) k/uL Sodium 136 L (137-145) mmol/L Chloride 94 L (98-107) mmol/L BUN 39 H (7-17) mg/dL Creatinine 4.30 H (0.52-1.04) mg/dL Glucose 114 H (74-99) mg/dL POC Glucose (mg/dL) 142 H (75-99) mg/dL Calcium 7.4 L (8.4-10.2) mg/dL Phosphorus 4.6 H (2.5-4.5) mg/dL Alkaline Phosphatase 167 H (38-126) U/L Total Protein 6.0 L (6.3-8.2) g/dL Albumin 3.0 L (3.5-5.0) g/dL Microbiology - Last 24 Hours (Table) 09/18/16 23:00 Blood Culture - Preliminary Blood No Growth after 24 hours Assessment and Plan Plan: Assessment: #1. End-stage renal disease maintained on hemodialysis on a Tuesday schedule. #2. Acute anemia. Status post 1 unit of packed red blood cell transfusion. Hemoglobin 8.6 today. Questionable GI bleed. #3. Chronic kidney disease mineral bone disease. #4. Chronic hypotension maintained on Midodrine. Plan: Hemodialysis today with goal 4 L UF as tolerated. Maintain Aranesp. Maintain PhosLo with meals. Nephrocaps daily. Continue to monitor hemoglobin closely and transfuse as needed. No signs of active bleed at this time.
[2016-09-20 12:18] LABS: Glucose,Whole Blood 165 mg/dL (75-99)
[2016-09-20 16:54] LABS: Glucose,Whole Blood 144 mg/dL (75-99)
[2016-09-20] MEDS: CINACALCET 30 MG TAB PO SCH (17:39)
[2016-09-20 20:03] LABS: Hepatitis B Surface Ag Index 0.06
[2016-09-20 21:11] LABS: Glucose,Whole Blood 150 mg/dL (75-99)
[2016-09-20] MEDS: HYDROcodone/APAP 10-325MG 1 EACH TAB PO PRN (21:28)
[2016-09-20] MEDS: ATORVASTATIN 20 MG TAB PO SCH (21:35)
[2016-09-20] MEDS: MONTELUKAST 10 MG TAB PO SCH (21:38)
[2016-09-20 22:43] VITALS: BP 98/64
[2016-09-21 07:10] LABS: Glucose,Whole Blood 146 mg/dL (75-99)
--- NOTE | 2016-09-21 07:47 | P.PN ---
Subjective Principal diagnosis: Anemia with history of chronic renal failure. This is a continue progress on a 65-year-old white female essentially admitted for significant weakness anemia and hypertension. The patient has end-stage renal disease and is on dialysis. The patient has had 2 units of PRBC. We will check CBC in a.m. After discussion with the son yesterday, we have decided to probably transfer to ECF given her overall weakness. She is somewhat reluctant to do this but understands the necessity. Objective - Vital Signs Vital signs: Vital Signs Temp 97.7 F 09/20/16 22:41 Pulse 86 09/20/16 22:41 Resp 18 09/20/16 22:41 BP 98/64 09/20/16 22:41 Pulse Ox 94 L 09/20/16 22:41 Intake & Output 09/20/16 09/21/16 09/21/16 18:59 06:59 18:59 Intake Total 555 250 Output Total 0 Balance 555 250 Weight 88 kg Intake: IV 155 0.9 KVO 155 Oral 400 250 Output: Urine 0 Other: # Bowel Movements 0 1 - Constitutional General appearance: Present: obese - EENT Eyes: Absent: abnormal pupil - Gastrointestinal General gastrointestinal: Present: soft. Absent: tenderness - Musculoskeletal Musculoskeletal: Present: generalized weakness - Psychiatric Psychiatric: Present: A&O x's 3 - Labs CBC & Chem 7: 09/20/16 05:00 09/20/16 05:00 Labs: Abnormal Lab Results - Last 24 Hours (Table) 09/20/16 09/20/16 09/20/16 Range/Units 12:17 16:52 20:44 POC Glucose (mg/dL) 165 H 144 H 150 H (75-99) mg/dL 09/21/16 Range/Units 07:08 POC Glucose (mg/dL) 146 H (75-99) mg/dL Microbiology - Last 24 Hours (Table) 09/18/16 23:00 Blood Culture - Preliminary Blood No Growth after 48 hours 09/18/16 23:00 Blood Culture - Preliminary Blood Assessment and Plan (1) Anemia Status: Acute (2) Congestive heart failure (CHF) Status: Acute (3) Hypotension Status: Acute (4) Chronic renal failure syndrome Status: Acute (5) Hx of aortic valve replacement Status: Acute Plan: Renal failure. Hypertension-stable. Anemia-stabilizing. Generalized weakness. We will go ahead and despite discharged to ECF in the a.m. tomorrow. Continue therapy. Check CBC in a.m. Time with Patient: Less than 30
--- NOTE | 2016-09-21 07:57 | PN ---
DATE OF SERVICE: 09/20/2016 Ms. Prachi Hutchinson is seen, evaluated and examined. She is a 65-year-old female with chronic hypertension and severe anemia. She has been followed post ICU discharge, has been doing well, awake and alert, breathing comfortably. No obvious distress present. Her blood pressure 100/60, respiratory rate of 16 to 18, heart rate is 86, temperature 97, sating 94% on 1 L oxygen. HEENT EXAMINATION: Otherwise unremarkable. NECK: Supple. LUNGS: Good air entry bilaterally. HEART: Regular rate and rhythm. Abdomen is soft. NEUROLOGICAL EXAMINATION: Awake and alert. Her last chest x-ray performed revealed CHF-like changes, interstitial edema, small pneumothorax cannot be excluded, likely a skinfold though. Will obtain a followup chest x-ray tomorrow. Patient is fairly asymptomatic. IMPRESSION: 1. Likely artifact. Also had the pneumothorax, will repeat chest x-ray tomorrow. 2. Gastrointestinal bleed and anemia, which is symptomatic associated with hypertension. 3. Hypertension, which has improved now. Patient does have a steadily chronic hypertension, but somewhat inaccurate blood pressure recording has been on obtained. 4. Chronic renal failure on hemodialysis. PLAN AND RECOMMENDATION: As above. Continue supportive care. Follow clinical course closely. Further recommendations pending.
[2016-09-21] MEDS: HYDROcodone/APAP 10-325MG 1 EACH TAB PO PRN ×2 (08:10→21:52)
[2016-09-21] MEDS: DOCUSATE 100 MG CAP PO SCH ×2 (08:11→21:53)
[2016-09-21] MEDS: CEVIMELINE 30 MG CAP PO SCH (08:11)
[2016-09-21] MEDS: PANTOPRAZOLE 40 MG TABLET PO SCH (08:11)
[2016-09-21] MEDS: CALCIUM ACETATE 667 MG CAP PO SCH ×3 (08:11→17:36)
[2016-09-21] MEDS: ESCITALOPRAM 20 MG TAB PO SCH (08:11)
[2016-09-21] MEDS: ALPRAZolam 0.5 MG TAB PO SCH ×3 (08:13→21:51)
[2016-09-21] MEDS: INSULIN LISPRO (humaLOG) 300 UNIT/3 ML VIAL SQ SCH ×4 (08:13→21:53)
[2016-09-21] MEDS: FOLIC ACID-VIT B COMPLEX-VIT C 1 CAP PO SCH (08:41)
[2016-09-21 09:00] LABS: Calcium 7.6 mg/dL (8.4-10.2); Magnesium 2.1 mg/dL (1.6-2.3); Phosphorous 3.6 mg/dL (2.5-4.5); Potassium 4.5 mmol/L (3.5-5.1); Total Bilirubin 1.1 mg/dL (0.2-1.3); Total Protein 6.9 g/dL (6.3-8.2)
[2016-09-21 09:08] LABS: Anisocytosis Slight; CH 30.8; CHCM 29.7; HCT 31.9 % (34.0-46.0); HDW 3.63; HGB 9.6 gm/dL (11.4-16.0); Hypochromasia Marked; MCH 31.8 pg (25.0-35.0); MCHC 30.3 g/dL (31.0-37.0); Macrocytosis Marked; Mean Platelet Volume 10.1; Poikilocytosis Slight; RBC 3.04 m/uL (3.80-5.40); RDW 19.9 % (11.5-15.5); WBC 6.5 k/uL (3.8-10.6)
--- NOTE | 2016-09-21 09:23 | XR ---
EXAMINATION TYPE: XR chest 1V portable DATE OF EXAM: 09/21/2016 9:14 AM COMPARISON: 09/20/2016 INDICATION: Pneumothorax TECHNIQUE: Single frontal view of the chest is obtained. Patient is rotated to the right. FINDINGS: The heart size is moderately prominent. The pulmonary vasculature is normal. Right midlung infiltrate is present. Electronic device overlies left chest. Sternotomy wires are in t he midline. Previous pneumothorax is not identified. IMPRESSION: 1. Pneumothorax identified on the current study. 2. Mid right lung peripheral consolidation. Correlate for pneumonia
--- NOTE | 2016-09-21 10:39 | P.PN ---
Subjective Patient seen in follow-up for end-stage renal disease. She is maintained on hemodialysis on a Tuesday schedule. Patient presented with symptomatic anemia. She did receive packed red blood cell transfusion this admission. Hemoglobin stable at 9.6 today. She denies any active bleeding. No melena or hematochezia. Denies chest pain or shortness of breath. No active complaints at this time. Vital signs are stable. General: The patient appeared well nourished and normally developed. HEENT: Head exam is unremarkable. Neck is without jugular venous distension. LUNGS: Lungs are clear to auscultation and percussion. Breath sounds decreased. HEART: Rate and Rhythm are regular. First and second heart sounds normal. No murmurs, rubs or gallops. ABDOMEN: Abdominal exam reveals normal bowel sounds. Non-tender and non- distended. No evidence of peritonitis. EXTREMITITES: No clubbing, cyanosis, or edema. Objective - Vital Signs Vital signs: Vital Signs Temp 97.4 F L 09/21/16 07:00 Pulse 86 09/21/16 07:00 Resp 16 09/21/16 07:00 BP 98/64 09/20/16 22:41 Pulse Ox 93 L 09/21/16 07:00 Intake & Output 09/20/16 09/21/16 09/21/16 18:59 06:59 18:59 Intake Total 555 250 Output Total 0 Balance 555 250 Weight 88 kg Intake: IV 155 0.9 KVO 155 Oral 400 250 Output: Urine 0 Other: # Bowel Movements 0 1 - Labs CBC & Chem 7: 09/21/16 08:26 09/21/16 08:26 Labs: Abnormal Lab Results - Last 24 Hours (Table) 09/20/16 09/20/16 09/20/16 Range/Units 12:17 16:52 20:44 RBC (3.80-5.40) m/uL Hgb (11.4-16.0) gm/dL Hct (34.0-46.0) % MCV (80.0-100.0) fL MCHC (31.0-37.0) g/dL RDW (11.5-15.5) % Plt Count (150-450) k/uL Chloride (98-107) mmol/L BUN (7-17) mg/dL Creatinine (0.52-1.04) mg/dL Glucose (74-99) mg/dL POC Glucose (mg/dL) 165 H 144 H 150 H (75-99) mg/dL Calcium (8.4-10.2) mg/dL Alkaline Phosphatase (38-126) U/L 09/21/16 09/21/16 09/21/16 Range/Units 07:08 08:26 08:26 RBC 3.04 L (3.80-5.40) m/uL Hgb 9.6 L (11.4-16.0) gm/dL Hct 31.9 L (34.0-46.0) % MCV 105.0 H (80.0-100.0) fL MCHC 30.3 L (31.0-37.0) g/dL RDW 19.9 H (11.5-15.5) % Plt Count 89 L (150-450) k/uL Chloride 96 L (98-107) mmol/L BUN 31 H (7-17) mg/dL Creatinine 4.10 H (0.52-1.04) mg/dL Glucose 146 H (74-99) mg/dL POC Glucose (mg/dL) 146 H (75-99) mg/dL Calcium 7.6 L (8.4-10.2) mg/dL Alkaline Phosphatase 213 H (38-126) U/L Microbiology - Last 24 Hours (Table) 09/18/16 23:00 Blood Culture - Preliminary Blood No Growth after 48 hours 09/18/16 23:00 Blood Culture - Preliminary Blood Assessment and Plan Plan: Assessment: #1. End-stage renal disease maintained on hemodialysis on a Tuesday schedule. #2. Acute anemia. Status post 1 unit of packed red blood cell transfusion. Hemoglobin 9.6 today. #3. Chronic kidney disease mineral bone disease. #4. Chronic hypotension maintained on Midodrine. Plan: Hemodialysis tomorrow with goal 4 L UF as tolerated. Maintain Aranesp. Maintain PhosLo with meals. Nephrocaps daily. Continue to monitor hemoglobin closely and transfuse as needed. No signs of active bleed at this time. Awaits rehab placement. Stable to be discharged from nephrology standpoint.
[2016-09-21 11:24] LABS: Glucose,Whole Blood 157 mg/dL (75-99)
[2016-09-21] MEDS ORDERED: VANCOMYCIN 1,500 MG in SODIUM CHLORIDE 0.9% 250 ML IVPB ONE (12:00)
--- NOTE | 2016-09-21 16:23 | PN ---
DATE OF SERVICE: 09/21/2016 Ms. Prachi Hutchinson is a 65-year-old female with severe anemia, hypertension and chronic renal failure. Clinically patient is doing well. Her hemodynamic status is stable. Her vitals are stable now. Blood pressure continues to be on the lower side, though. Last check was 100/60, respiratory rate 16, pulse 86, temperature 97, saturation 95% to 96%. HEENT: Unremarkable. NECK: Supple. LUNGS: Good air entry bilaterally. HEART: Regular rate, rhythm. ABDOMEN: Soft. NEUROLOGICAL EXAMINATION: Otherwise awake and alert. IMPRESSION: 1. Status post gastrointestinal bleed. 2. Chronic renal failure. 3. Hypotension, chronic in nature, on midodrine. 4. Generalized weakness, medical debility. 5. Pneumothorax likely a skin fold not seen on today's x-ray. PLAN AND RECOMMENDATIONS: As above. Continue supportive care. Increase activity as tolerated. Monitor hemoglobin closely. Last chest x-ray performed earlier today was reviewed and compared with the prior x-ray. Will follow.
--- NOTE | 2016-09-21 16:25 | PN ---
DATE OF SERVICE: 09/21/2016 ADDENDUM TO PROGRESS NOTE Patient continues to have right mid lung field pneumonia. She remains on IV Rocephin. Will maintain that and repeat x-ray probably in the next 24 to 48 hours. Will follow.
[2016-09-21 17:11] LABS: Glucose,Whole Blood 177 mg/dL (75-99)
[2016-09-21] MEDS: CINACALCET 30 MG TAB PO SCH (17:36)
[2016-09-21 20:28] LABS: Glucose,Whole Blood 149 mg/dL (75-99)
[2016-09-21] MEDS: MONTELUKAST 10 MG TAB PO SCH (21:53)
[2016-09-21] MEDS: ATORVASTATIN 20 MG TAB PO SCH (21:53)
[2016-09-22 07:20] LABS: Glucose,Whole Blood 148 mg/dL (75-99)
[2016-09-22 07:38] LABS: Anisocytosis Slight; HCT 31.8 % (34.0-46.0); HDW 3.55; HGB 9.5 gm/dL (11.4-16.0); Hypochromasia Marked; MCH 31.2 pg (25.0-35.0); MCHC 29.8 g/dL (31.0-37.0); MCV 104.9 fL (80.0-100.0); Macrocytosis Marked; Mean Platelet Volume 11.1; Poikilocytosis Slight; RBC 3.03 m/uL (3.80-5.40); WBC 6.1 k/uL (3.8-10.6)
[2016-09-22 07:57] LABS: Calcium 7.4 mg/dL (8.4-10.2); Phosphorous 3.9 mg/dL (2.5-4.5); Potassium 4.4 mmol/L (3.5-5.1); Total Protein 6.7 g/dL (6.3-8.2)
[2016-09-22 08:01] VITALS: RESP 18
--- NOTE | 2016-09-22 08:15 | P.DS ---
Providers Date of admission: 09/17/16 16:12 Attending physician: Nishant Garcia Consults: 09/17/16 16:51 Consult Physician Urgent Consulting Provider: Deyvi Chung Consult Reason/Comments: hypotension. Do you want consulting provider notified?: Already Contacted 09/22/16 00:02 Consult Physician Routine Consulting Provider: Leandra Telles Consult Reason/Comments: run of vtac Do you want consulting provider notified?: Yes, Notify in am Primary care physician: Nishant Garcia - Discharge Diagnosis(es) (1) Anemia Current Visit: Yes Status: Acute (2) Congestive heart failure (CHF) Current Visit: Yes Status: Acute (3) Hypotension Current Visit: Yes Status: Acute (4) Chronic renal failure syndrome Current Visit: No Status: Acute (5) Hx of aortic valve replacement Current Visit: No Status: Acute Hospital Course: This is a discharge/transfer summary 65-year-old white female essentially admitted for hypotension and anemia. We suspect this is most likely related to her chronic renal failure. She's now been started on Aranesp and has been given a couple of units of PRBC. The patient is now stabilizing but still significantly weak. After discussion with her son, she was transferred to rehab facility for outpatient treatment. Medications have been reconciled. We will continue to follow once discharged from [facility]. Patient Condition at Discharge: Stable Plan - Discharge Summary New Discharge Prescriptions: Darbepoetin Matheus [Aranesp] 40 mcg SQ Q7D #4 syringe Folic Acid-Vit B Complex-Vit C [Nephrocaps] 1 each PO DAILY #30 cap Discharge Medication List ALPRAZolam [Xanax] 0.5 mg PO TID 04/07/14 [History] Cinacalcet HCl [Sensipar] 30 mg PO W/SUPPER 04/07/14 [History] HYDROcodone/APAP 10-325MG [[place] 10-325] 1 tab PO Q6H PRN 04/07/14 [History] Montelukast [Singulair] 10 mg PO HS 04/07/14 [History] Simvastatin [Zocor] 40 mg PO HS 08/18/15 [History] Cinacalcet HCl [Sensipar] 90 mg PO W/SUPPER 04/02/16 [History] Escitalopram [Lexapro] 40 mg PO DAILY 04/02/16 [History] Tiffanie's Leg Cramp Tab 2 - 3 tab PO Q6H PRN 04/02/16 [History] rOPINIRole HCL [Ropinirole HCl] 2 mg PO HS 04/02/16 [History] Pantoprazole Sodium [Protonix] 40 mg PO DAILY #30 tablet. 04/04/16 [Rx] Cevimeline HCl 30 mg PO DAILY 05/28/16 [History] Insulin Aspart [NovoLOG] See Protocol SQ ACHS 05/28/16 [History] Calcium Acetate [PhosLo] 667 mg PO TID 09/17/16 [History] Clopidogrel Bisulfate [Plavix] 75 mg PO DAILY 09/17/16 [History] Docusate [Colace] 100 mg PO BID 09/17/16 [History] Midodrine HCl [ProAmatine] 7.5 mg PO MOWEFR PRN 09/17/16 [History] Darbepoetin Matheus [Aranesp] 40 mcg SQ Q7D #4 syringe 09/22/16 [Rx] Folic Acid-Vit B Complex-Vit C [Nephrocaps] 1 each PO DAILY #30 cap 09/22/16 [Rx ] Follow up Appointment(s)/Referral(s): Nishant Garcia MD [Primary Care Provider] - 1 Week [facility] [NON-STAFF] - As Needed Discharge Disposition: TRANSFER TO SNF/ECF
[2016-09-22] MEDS: DOCUSATE 100 MG CAP PO SCH (10:00)
[2016-09-22] MEDS: CALCIUM ACETATE 667 MG CAP PO SCH ×3 (10:00→17:48)
[2016-09-22] MEDS: CEVIMELINE 30 MG CAP PO SCH (10:00)
[2016-09-22] MEDS: ESCITALOPRAM 20 MG TAB PO SCH (10:00)
[2016-09-22] MEDS: PANTOPRAZOLE 40 MG TABLET PO SCH (10:00)
[2016-09-22] MEDS: FOLIC ACID-VIT B COMPLEX-VIT C 1 CAP PO SCH (10:00)
[2016-09-22] MEDS: ALPRAZolam 0.5 MG TAB PO SCH ×2 (10:02→16:50)
[2016-09-22] MEDS: INSULIN LISPRO (humaLOG) 300 UNIT/3 ML VIAL SQ SCH ×3 (10:03→17:49)
--- NOTE | 2016-09-22 10:05 | XR ---
EXAMINATION TYPE: XR chest 1V DATE OF EXAM: 09/22/2016 9:42 AM HISTORY: Shortness of breath. REFERENCE: Previous study dated 09/21/2016. FINDINGS: There has been a midline sternotomy. There is a multilead pacing device in place in the lef t. The heart is enlarged. There is a right-sided infiltrate. There is a small right effusion. There has been no significant interval change in the appearance of the chest. IMPRESSION: NO SIGNIFICANT INTERVAL CHANGE IN THE APPEARANCE OF THE CHEST.
[2016-09-22 11:40] LABS: Glucose,Whole Blood 146 mg/dL (75-99)
[2016-09-22 15:33] VITALS: PULSE 87; TEMP 97.5
[2016-09-22 17:43] LABS: Glucose,Whole Blood 147 mg/dL (75-99)
[2016-09-22] MEDS: CINACALCET 30 MG TAB PO SCH (17:48)
[2016-09-22] MEDS ORDERED: GELATIN SPONGE,ABSORB (SMALL) 1 EACH SPONGE ONE (18:00)
--- NOTE | 2016-09-22 19:45 | PN ---
DATE OF SERVICE: 09/22/2016 She was seen on 09/22/2016. She does not complain of any dizziness. She is doing better overall and has been transferred out of the ICU. On physical examination, her respiratory rate is 18, pulse rate of 91, temperature 97.9, O2 sat on room air is 92%, on 2 liters by nasal cannula it is 92% as well. HEENT is unremarkable. Chest reveals decreased breath sounds. Cardiovascular system reveals an S1 and S2. ABDOMEN: Soft. There is no edema. Last blood pressure was 98/64. Labs revealed BUN 38, creatinine of 5.22, hemoglobin 9.5. IMPRESSION: 1. Gastrointestinal bleed. 2. Chronic renal failure. 3. Small right-sided effusion. Continue on her current medications. Agree with possible discharge planning on her.
--- NOTE | 2016-09-22 22:43 | P.CRDCN ---
History of Present Illness Consult date: 09/22/16 History of present illness: This is [age]-year-old female with end-stage renal disease and chronic dialysis who was admitted to the hospital with increasing shortness of breath and weakness. Patient was found to be anemic with hemoglobin of 7.2 and has received one unit of blood transfusion. Patient felt better since she got a blood transfusion. She has extensive cardiac history. Patient has a previous bypass surgery valve replacement and also aortic valve replacement done with a TAVR approach and she is being followed by Dr. Salgado. We are asked to see the patient today because of ventricular ectopy and episodes of brief nonsustained ventricular tachycardia. Patient is asymptomatic. Patient also had prophylactic AICD implantation. Patient is feeling better without any chest pain shortness of breath or palpitations and she wants to go home. At this point her rectal Lites are within normal limits. She is advised to be discharged. She'll follow with her assistant center director Review of Systems As per the chart Past Medical History Past Medical History: Asthma, Coronary Artery Disease (CAD), Chest Pain / Angina , CVA/TIA, Diabetes Mellitus, Dialysis, Hyperlipidemia, Myocardial Infarction ( [place]), Renal Disease Additional Past Medical History / Comment(s): kidney failure, on dialysis; adult scoliosis right hip; cva in 2010 - no residual other than eyes tear frequently; heart valve closed up 02/2013, left eye macular degeneration. Hypotension with systolic blood pressures normally running below 90 and diastolic pressure below 60. Last Myocardial Infarction Date:: 02/2013 History of Any Multi-Drug Resistant Organisms: MRSA Date of last positivie culture/infection: 2009 MDRO Source:: Wound-not specified with MRSA & MDRO Acinetobacter Past Surgical History: Adenoidectomy, Cardiac Valve Replacement, Coronary Bypass /CABG, Heart Catheterization, Tonsillectomy Additional Past Surgical History / Comment(s): cabg sep 2009 x 6 vessels; AV replaced jun 2011, arthroscopies bhavya ankles, Past Anesthesia/Blood Transfusion Reactions: No Reported Reaction Type of Cardiac Device: Permanent Pacemaker Device Placement Date:: 06/04 Past Psychological History: No Psychological Hx Reported Smoking Status: Former smoker Past Alcohol Use History: Rare Additional Past Alcohol Use History / Comment(s): "couple sips of beer throughout the year" started smoking at age 14 smoked 1 ppd, quit in 1981 Past Drug Use History: None Reported - Past Family History Father Family Medical History: Congestive Heart Failure (CHF), Diabetes Mellitus Mother Family Medical History: Diabetes Mellitus Additional Family Medical History / Comment(s): blocked carotids; kidney failure Sister(s) Family Medical History: Cancer Medications and Allergies Home Medications Medication Instructions Recorded Confirmed Type ALPRAZolam [Xanax] 0.5 mg PO TID 04/07/14 09/17/16 History Cinacalcet HCl [Sensipar] 30 mg PO W/SUPPER 04/07/14 09/17/16 History HYDROcodone/APAP 10-325MG [[place] 1 tab PO Q6H PRN 04/07/14 09/17/16 History 10-325] Montelukast [Singulair] 10 mg PO HS 04/07/14 09/17/16 History Simvastatin [Zocor] 40 mg PO HS 08/18/15 09/17/16 History Cinacalcet HCl [Sensipar] 90 mg PO W/SUPPER 04/02/16 09/17/16 History Escitalopram [Lexapro] 40 mg PO DAILY 04/02/16 09/17/16 History Tiffanie's Leg Cramp Tab 2 - 3 tab PO Q6H PRN 04/02/16 09/17/16 History rOPINIRole HCL [Ropinirole HCl] 2 mg PO HS 04/02/16 09/17/16 History Cevimeline HCl 30 mg PO DAILY 05/28/16 09/17/16 History Insulin Aspart [NovoLOG] See Protocol SQ ACHS 05/28/16 09/17/16 History Calcium Acetate [PhosLo] 667 mg PO TID 09/17/16 09/17/16 History Clopidogrel Bisulfate [Plavix] 75 mg PO DAILY 09/17/16 09/17/16 History Docusate [Colace] 100 mg PO BID 09/17/16 09/17/16 History Midodrine HCl [ProAmatine] 7.5 mg PO MOWEFR PRN 09/17/16 09/17/16 History Allergies Allergy/AdvReac Type Severity Reaction Status Date / Time adhesive Allergy Rash/Hives Verified 09/17/16 11:22 Sulfa (Sulfonamide Allergy Rash/Hives Verified 09/17/16 11:22 Antibiotics) sulfacetamide sodium Allergy Unknown Verified 09/17/16 11:22 [From Sulfamide] Physical Exam Vitals: Vital Signs Temp Pulse Resp Pulse Ox 09/22/16 16:00 87 18 09/22/16 15:00 97.5 F L 87 18 93 L 09/22/16 08:00 18 09/22/16 07:00 97.9 F 91 18 92 L 09/21/16 23:00 97.9 F 88 17 92 L Intake and Output 09/22/16 09/22/16 09/22/16 06:59 14:59 22:59 Output Total 3 Balance -3 Output: Urine 3 Other: # Bowel Movements 2 1 1 Weight 87 kg GENERAL EXAM: Patient is alert and oriented and doesn't appear to be in any acute distress. She is obese rebuilt HEENT: Normocephalic. Normal reaction of pupils, equal size, normal range of extraocular motion. No erythema or exudates in the throat. NECK: No masses, no nuchal rigidity. CHEST: No chest wall deformity. LUNGS: Equal air entry with no crackles or wheeze. HEART: S1 and S2 normal with no audible mumurs or gallops. Regular rhythm, femorals equal on both sides.. ABDOMEN: No hepatosplenomegaly, normal bowel sounds, no guarding or rigidity. SKIN: No rashes CENTRAL NERVOUS SYSTEM: No focal deficits. EXTREMITIES: No cyanosis, clubbing or edema. Results 09/22/16 07:12 09/22/16 07:12 Cardiac Enzymes 09/22/16 Range/Units 07:12 AST 18 (14-36) U/L CBC 09/22/16 Range/Units 07:12 WBC 6.1 (3.8-10.6) k/uL RBC 3.03 L (3.80-5.40) m/uL Hgb 9.5 L (11.4-16.0) gm/dL Hct 31.8 L (34.0-46.0) % Plt Count 93 L (150-450) k/uL Comprehensive Metabolic Panel 09/22/16 Range/Units 07:12 Sodium 135 L (137-145) mmol/L Potassium 4.4 (3.5-5.1) mmol/L Chloride 96 L (98-107) mmol/L Carbon Dioxide 23 (22-30) mmol/L BUN 38 H (7-17) mg/dL Creatinine 5.22 H* (0.52-1.04) mg/dL Glucose 144 H (74-99) mg/dL Calcium 7.4 L (8.4-10.2) mg/dL AST 18 (14-36) U/L ALT 40 (9-52) U/L Alkaline Phosphatase 210 H (38-126) U/L Total Protein 6.7 (6.3-8.2) g/dL Albumin 3.5 (3.5-5.0) g/dL Intake and Output 09/22/16 09/22/16 09/22/16 06:59 14:59 22:59 Output Total 3 Balance -3 Output: Urine 3 Other: # Bowel Movements 2 1 1 Weight 87 kg 09/22/16 07:12 09/22/16 07:12 EKG Interpretations (text) Pacemaker rhythm Assessment and Plan (1) Ventricular ectopy Status: Acute (2) Acute GI bleeding Status: Acute (3) Anemia Status: Acute (4) Chronic renal failure syndrome Status: Acute (5) Congestive heart failure (CHF) Status: Acute (6) Hx of aortic valve replacement Status: Acute Plan: This patient is mainly admitted with anemia and weakness. Feeling better since she got the blood transfusion. Apparently this anemia is chronic and recurrent problem. Today she is feeling better and wants to go home. Patient has cardiomyopathy and also AICD implantation. Patient is noted to have frequent ventricular ectopy and nonsustained ventricular tachycardia with duration. Patient is asymptomatic. Patient is being discharged home. Follow-up with her assistant center director as an outpatient
== END 2016-09-22 19:40 | DRG 291 ==
LOC: EC 10:23 → 6ICU 16:12 → 5MS5E 09-20 14:06
PROVIDERS: ADMIT Family Medicine; ATTEND Family Medicine
PROC: 30243N1 Transfusion of Nonautologous Red Blood Cells into Central Vein, Percutaneous Approach (ICD-10-PCS; 2016-09-17)
PROC: 02H633Z Insertion of Infusion Device into Right Atrium, Percutaneous Approach (ICD-10-PCS; 2016-09-17)
PROC: 5A1D60Z (ICD-10-PCS; principal; 2016-09-20)
DX: I13.2 Hypertensive heart and chronic kidney disease with heart failure and with stage 5 chronic kidney disease, or end stage renal disease (principal); N18.6 End stage renal disease; I47.2 Ventricular tachycardia; J18.9 Pneumonia, unspecified organism; I95.89 Other hypotension; I42.9 Cardiomyopathy, unspecified; E11.22 Type 2 diabetes mellitus with diabetic chronic kidney disease; I50.9 Heart failure, unspecified; D63.1 Anemia in chronic kidney disease; E11.51 Type 2 diabetes mellitus with diabetic peripheral angiopathy without gangrene; D53.9 Nutritional anemia, unspecified; I25.10 Atherosclerotic heart disease of native coronary artery without angina pectoris; E87.6 Hypokalemia; I49.3 Ventricular premature depolarization; R53.1 Weakness; I25.2 Old myocardial infarction; R74.8 Abnormal levels of other serum enzymes; K29.70 Gastritis, unspecified, without bleeding; J45.909 Unspecified asthma, uncomplicated; D75.89 Other specified diseases of blood and blood-forming organs; H35.30 Unspecified macular degeneration; R42 Dizziness and giddiness; E78.5 Hyperlipidemia, unspecified; M41.9 Scoliosis, unspecified; Z99.2 Dependence on renal dialysis; Z86.14 Personal history of Methicillin resistant Staphylococcus aureus infection; Z88.2 Allergy status to sulfonamides; Z95.1 Presence of aortocoronary bypass graft; Z86.73 Personal history of transient ischemic attack (TIA), and cerebral infarction without residual deficits; Z87.891 Personal history of nicotine dependence; Z95.2 Presence of prosthetic heart valve; Z83.3 Family history of diabetes mellitus; Z82.49 Family history of ischemic heart disease and other diseases of the circulatory system; Z95.810 Presence of automatic (implantable) cardiac defibrillator; Z91.048 Other nonmedicinal substance allergy status; Z79.02 Long term (current) use of antithrombotics/antiplatelets; Z79.4 Long term (current) use of insulin; Z79.899 Other long term (current) drug therapy; Z80.9 Family history of malignant neoplasm, unspecified; Z87.442 Personal history of urinary calculi; Z86.010 Personal history of colon polyps; Z84.1 Family history of disorders of kidney and ureter
CPT/HCPCS: 36415; 36430; 36556; 71010; 80053; 80202; 82728; 83036; 83540; 83550; 83605; 83735; 84100; 84484; 85025; 85027; 85610; 85730; 86850; 86900; 86901; 86920; 87040; 87340; 90935; 93005; 96361; 96365; 96366; 96367; 99285

== ENCOUNTER 2016-09-24 10:11 | Inpatient (IN) | payer MEDICARE, BC ==
[2016-09-24] MEDS ORDERED: SODIUM CHLORIDE 0.9% 1,000 ML IV STA ×2 (10:22→10:33)
[2016-09-24] MEDS ORDERED: SODIUM CHLORIDE 0.9% 500 ML IV STA (10:22)
[2016-09-24] MEDS ORDERED: PANTOPRAZOLE 40 MG/10 ML VIAL IVP STA (10:22)
[2016-09-24] MEDS ORDERED: ONDANSETRON 4 MG/2 ML VIAL IVP STA (10:22)
[2016-09-24 10:58] LABS: INR 1.4 (<1.1); Partial Thromboplastin Time 25.9 sec (22.0-30.0); Prothrombin Time 13.9 sec (9.0-12.0)
[2016-09-24 11:00] LABS: Calcium 7.9 mg/dL (8.4-10.2); Magnesium 2.1 mg/dL (1.6-2.3); Potassium 4.2 mmol/L (3.5-5.1); Total Bilirubin 0.9 mg/dL (0.2-1.3); Total Protein 6.1 g/dL (6.3-8.2)
[2016-09-24 11:06] LABS: Anisocytosis Slight; Basophils % (A) 1 %; CH 30.8; CHCM 30.1; Eosinophils # (A) 0.1 k/uL (0-0.7); Eosinophils % (A) 1 %; HCT 25.2 % (34.0-46.0); HDW 3.52; Hypochromasia Marked; Luc # (Auto) 0.09; Luc % (Auto) 1; Lymphocytes % (A) 15 %; MCH 30.5 pg (25.0-35.0); MCHC 29.5 g/dL (31.0-37.0); MCV 103.4 fL (80.0-100.0); Macrocytosis Marked; Mean Platelet Volume 11.6; Monocytes # (A) 0.4 k/uL (0-1.0); Monocytes % (A) 6 %; Neutrophils # (A) 5.3 k/uL (1.3-7.7); Neutrophils % (A) 76 %; Poikilocytosis Slight; RBC 2.44 m/uL (3.80-5.40); RDW 19.4 % (11.5-15.5); WBC 6.9 k/uL (3.8-10.6); WBC (Perox) 6.96
[2016-09-24 11:07] LABS: HGB 7.5 gm/dL (11.4-16.0)
--- NOTE | 2016-09-24 11:08 | ED ---
General Adult HPI - General Chief complaint: GI Bleed Stated complaint: GI Bleed Time Seen by Provider: 09/24/16 10:21 Source: EMS, RN notes reviewed, old records reviewed Mode of arrival: EMS - History of Present Illness Initial comments: This is a 65-year-old female the ER for evaluation of GI bleed. Low blood pressure. Altered mental status. Patient is a dialysis patient, coming to ER today for evaluation of low hemoglobin. Patient is vomiting blood. Patient is not on blood thinners, but is on Plavix. Patient is unable to provide history, history obtained from EMS the chart, patient is vomiting blood and has had bloody stools. - Related Data Home Medications Medication Instructions Recorded Confirmed ALPRAZolam [Xanax] 0.5 mg PO TID PRN 04/07/14 09/24/16 Cinacalcet HCl [Sensipar] 30 mg PO DAILY@169904/07/14 09/24/16 HYDROcodone/APAP 10-325MG [[place] 1 tab PO Q6H PRN 04/07/14 09/24/16 10-325] Montelukast [Singulair] 10 mg PO HS@209904/07/14 09/24/16 Simvastatin [Zocor] 40 mg PO HS@209908/18/15 09/24/16 Cinacalcet HCl [Sensipar] 90 mg PO DAILY@169904/02/16 09/24/16 Escitalopram [Lexapro] 40 mg PO DAILY@0804/02/16 09/24/16 rOPINIRole HCL [Ropinirole HCl] 2 mg PO HS@209904/02/16 09/24/16 Cevimeline HCl 30 mg PO DAILY@0805/28/16 09/24/16 Insulin Aspart [NovoLOG] See Protocol SQ ACHS 05/28/16 09/24/16 Calcium Acetate [PhosLo] 667 mg PO TID@0800,1200,1700 09/17/16 09/24/16 Clopidogrel Bisulfate [Plavix] 75 mg PO DAILY@0800 09/17/16 09/24/16 Docusate [Colace] 100 mg PO BID@0800,1700 09/17/16 09/24/16 Midodrine HCl [ProAmatine] 7.5 mg PO MOWEFR PRN 09/17/16 09/24/16 Bisacodyl [Dulcolax] 10 mg RECTAL DAILY PRN 09/24/16 09/24/16 Folic Acid-Vit B Complex-Vit C 1 cap PO DAILY@1700 09/24/16 09/24/16 [Nephrocaps] Magnesium Hydroxide [Milk of 2,400 mg PO DAILY PRN 09/24/16 09/24/16 Magnesia] Na Phos,M-B/Na Phos,Di-Ba [Fleet 133 ml RECTAL ONCE PRN 09/24/16 09/24/16 Adult] Nepro 1 can PO BID@0800,1700 09/24/16 09/24/16 Pantoprazole Sodium [Protonix] 40 mg PO DAILY@0800 09/24/16 09/24/16 Allergies Allergy/AdvReac Type Severity Reaction Status Date / Time adhesive Allergy Rash/Hives Verified 09/24/16 10:39 Sulfa (Sulfonamide Allergy Rash/Hives Verified 09/24/16 10:39 Antibiotics) sulfacetamide sodium Allergy Unknown Verified 09/24/16 10:39 [From Sulfamide] Review of Systems ROS Statement: Those systems with pertinent positive or pertinent negative responses have been documented in the HPI. ROS Other: All systems not noted in ROS Statement are negative. Past Medical History Past Medical History: Asthma, Coronary Artery Disease (CAD), Chest Pain / Angina , CVA/TIA, Diabetes Mellitus, Dialysis, Hyperlipidemia, Myocardial Infarction ( [place]), Renal Disease Additional Past Medical History / Comment(s): kidney failure, on dialysis; adult scoliosis right hip; cva in 2010 - no residual other than eyes tear frequently; heart valve closed up 02/2013, left eye macular degeneration. Hypotension with systolic blood pressures normally running below 90 and diastolic pressure below 60. Last Myocardial Infarction Date:: 02/2013 History of Any Multi-Drug Resistant Organisms: MRSA Date of last positivie culture/infection: 2009 MDRO Source:: Wound-not specified with MRSA & MDRO Acinetobacter Past Surgical History: Adenoidectomy, Cardiac Valve Replacement, Coronary Bypass /CABG, Heart Catheterization, Tonsillectomy Additional Past Surgical History / Comment(s): cabg sep 2009 x 6 vessels; AV replaced jun 2011, arthroscopies bhavya ankles, Past Anesthesia/Blood Transfusion Reactions: No Reported Reaction Type of Cardiac Device: Permanent Pacemaker Device Placement Date:: 06/04 Past Psychological History: No Psychological Hx Reported Smoking Status: Former smoker Past Alcohol Use History: Rare Additional Past Alcohol Use History / Comment(s): "couple sips of beer throughout the year" started smoking at age 14 smoked 1 ppd, quit in 1982 Past Drug Use History: None Reported - Past Family History Father Family Medical History: Congestive Heart Failure (CHF), Diabetes Mellitus Mother Family Medical History: Diabetes Mellitus Additional Family Medical History / Comment(s): blocked carotids; kidney failure Sister(s) Family Medical History: Cancer General Exam Limitations: altered mental status General appearance: alert, in no apparent distress Head exam: Present: atraumatic, normocephalic, normal inspection Eye exam: Present: normal appearance, PERRL, EOMI. Absent: scleral icterus, conjunctival injection, periorbital swelling ENT exam: Present: mucous membranes dry Neck exam: Present: normal inspection. Absent: tenderness, meningismus, lymphadenopathy Respiratory exam: Present: normal lung sounds bilaterally. Absent: respiratory distress, wheezes, rales, rhonchi, stridor Cardiovascular Exam: Present: normal rhythm, tachycardia, normal heart sounds. Absent: systolic murmur, diastolic murmur, rubs, gallop, clicks GI/Abdominal exam: Present: soft, normal bowel sounds. Absent: distended, tenderness, guarding, rebound, rigid Rectal exam: Present: heme (+) stool, black stool Extremities exam: Present: normal inspection, full ROM, normal capillary refill. Absent: tenderness, pedal edema, joint swelling, calf tenderness Back exam: Present: normal inspection Neurological exam: Present: alert, oriented X3, CN II-XII intact Psychiatric exam: Present: normal affect, normal mood Skin exam: Present: warm, dry, intact, normal color. Absent: rash Course Vital Signs 09/24/16 10:38 Temperature 98.1 F Pulse Rate 103 H Respiratory 20 Rate O2 Sat by Pulse 92 L Oximetry EKG Findings - EKG Comments: EKG Findings:: EKG shows paced rhythm rate 100, QRS 178, QTc 606 Medical Decision Making - Medical Decision Making 65 female year for evaluation of patient coming in from dialysis for evaluation of low hemoglobin, patient actively vomiting coffee-ground emesis, patient has blood in stool, patient will be admitted for blood transfusion, hemodynamic monitoring, evaluation by GI as well as nephrology, patient placed in ICU - Lab Data Result diagrams: 09/24/16 10:23 09/24/16 10:23 Lab Results 09/24/16 09/24/16 09/24/16 Range/Units 10:23 10:23 10:23 WBC 6.9 (3.8-10.6) k/uL RBC 2.44 L (3.80-5.40) m/uL Hgb 7.5 L D (11.4-16.0) gm/dL Hct 25.2 L (34.0-46.0) % MCV 103.4 H (80.0-100.0) fL MCH 30.5 (25.0-35.0) pg MCHC 29.5 L (31.0-37.0) g/dL RDW 19.4 H (11.5-15.5) % Plt Count 124 L (150-450) k/uL Neutrophils % 76 % Lymphocytes % 15 % Monocytes % 6 % Eosinophils % 1 % Basophils % 1 % Neutrophils # 5.3 (1.3-7.7) k/uL Lymphocytes # 1.0 (1.0-4.8) k/uL Monocytes # 0.4 (0-1.0) k/uL Eosinophils # 0.1 (0-0.7) k/uL Basophils # 0.0 (0-0.2) k/uL Hypochromasia Marked Poikilocytosis Slight Anisocytosis Slight Macrocytosis Marked PT (9.0-12.0) sec INR (<1.1) APTT (22.0-30.0) sec Sodium (137-145) mmol/L Potassium (3.5-5.1) mmol/L Chloride (98-107) mmol/L Carbon Dioxide (22-30) mmol/L Anion Gap mmol/L BUN (7-17) mg/dL Creatinine (0.52-1.04) mg/dL Est GFR (MDRD) Af Amer (>60 ml/min/1.73 sqM) Est GFR (MDRD) Non-Af (>60 ml/min/1.73 sqM) Glucose (74-99) mg/dL Calcium (8.4-10.2) mg/dL Magnesium (1.6-2.3) mg/dL Total Bilirubin (0.2-1.3) mg/dL AST (14-36) U/L ALT (9-52) U/L Alkaline Phosphatase (38-126) U/L Total Creatine Kinase 49 (30-135) U/L CK-MB (CK-2) 1.6 (0.0-2.4) ng/mL CK-MB (CK-2) Rel Index 3.3 Troponin I 0.070 H* (0.000-0.034) ng/mL Total Protein (6.3-8.2) g/dL Albumin (3.5-5.0) g/dL Lipase (23-300) U/L Blood Type A Positive Blood Type Recheck No Antibody Screen NEGATIVE Crossmatch See Detail Spec Expiration Date 09/27/2016232209/24/16 09/24/16 Range/Units 10:23 10:23 WBC (3.8-10.6) k/uL RBC (3.80-5.40) m/uL Hgb (11.4-16.0) gm/dL Hct (34.0-46.0) % MCV (80.0-100.0) fL MCH (25.0-35.0) pg MCHC (31.0-37.0) g/dL RDW (11.5-15.5) % Plt Count (150-450) k/uL Neutrophils % % Lymphocytes % % Monocytes % % Eosinophils % % Basophils % % Neutrophils # (1.3-7.7) k/uL Lymphocytes # (1.0-4.8) k/uL Monocytes # (0-1.0) k/uL Eosinophils # (0-0.7) k/uL Basophils # (0-0.2) k/uL Hypochromasia Poikilocytosis Anisocytosis Macrocytosis PT 13.9 H (9.0-12.0) sec INR 1.4 (<1.1) APTT 25.9 (22.0-30.0) sec Sodium 144 (137-145) mmol/L Potassium 4.2 (3.5-5.1) mmol/L Chloride 100 (98-107) mmol/L Carbon Dioxide 27 (22-30) mmol/L Anion Gap 17 mmol/L BUN 27 H (7-17) mg/dL Creatinine 2.90 H (0.52-1.04) mg/dL Est GFR (MDRD) Af Amer 20 (>60 ml/min/1.73 sqM) Est GFR (MDRD) Non-Af 16 (>60 ml/min/1.73 sqM) Glucose 139 H (74-99) mg/dL Calcium 7.9 L (8.4-10.2) mg/dL Magnesium 2.1 (1.6-2.3) mg/dL Total Bilirubin 0.9 (0.2-1.3) mg/dL AST 22 (14-36) U/L ALT 31 (9-52) U/L Alkaline Phosphatase 190 H (38-126) U/L Total Creatine Kinase (30-135) U/L CK-MB (CK-2) (0.0-2.4) ng/mL CK-MB (CK-2) Rel Index Troponin I (0.000-0.034) ng/mL Total Protein 6.1 L (6.3-8.2) g/dL Albumin 3.2 L (3.5-5.0) g/dL Lipase 260 (23-300) U/L Blood Type Blood Type Recheck Antibody Screen Crossmatch Spec Expiration Date - Radiology Data Radiology results: report reviewed (CXR is positive for CHF), image reviewed Critical Care Time Critical Care Time: Yes Total Critical Care Time: 31 Disposition Clinical Impression: Acute GI bleeding, Anemia, Hypotension, Heme positive stool, GI hemorrhage, UGIB (upper gastrointestinal bleed), Renal failure (ARF), acute on chronic Disposition: ADMITTED IP TO THIS [facility] Condition: Serious Referrals: Sara Nj MD [Primary Care Provider] - 1-2 days
[2016-09-24 11:21] LABS: Creatine Kinase MB 1.6 ng/mL (0.0-2.4)
[2016-09-24 11:27] LABS: Troponin I 0.07 ng/mL (0.000-0.034)
[2016-09-24] MEDS ORDERED: ONDANSETRON 4 MG/2 ML VIAL IVP PRN (12:13)
[2016-09-24 12:16] VITALS: BP 65/27
--- NOTE | 2016-09-24 12:16 | XR ---
EXAMINATION TYPE: XR chest 1V portable DATE OF EXAM: 09/24/2016 12:12 PM COMPARISON: Chest x-ray 2 days ago. HISTORY: Fall injury today with chest pain TECHNIQUE: Single AP portable frontal view of the chest is obtained. FINDINGS: There is persistent cardiomegaly with multi lead pacemaker/AICD. There is persistent low ramy ng volumes with right-sided volume loss and persistent small to moderate-sized right pleural effusion with diffuse right lung edema and/or infiltrate. Left lung remains predominantly clear. Chronic thic kening right paratracheal stripe is present. Osseous structures are demineralized. IMPRESSION: Overall stable findings, cardiomegaly with small to moderate-sized right pleural effusio n and diffuse right lung edema and/or infiltrate with right-sided volume loss all redemonstrated.
[2016-09-24] MEDS: IPRATROPIUM-ALBUTEROL 3 ML NEB INHALATION SCH ×2 (16:59→20:02)
[2016-09-24 17:03] LABS: Glucose,Whole Blood 162 mg/dL (75-99)
[2016-09-24 17:18] LABS: Anisocytosis Moderate; CHCM 30.3; HCT 26.7 % (34.0-46.0); HDW 4.19; HGB 8.1 gm/dL (11.4-16.0); Hypochromasia Marked; MCH 30.6 pg (25.0-35.0); MCHC 30.4 g/dL (31.0-37.0); MCV 100.5 fL (80.0-100.0); Macrocytosis Moderate; Mean Platelet Volume 11.4; Poikilocytosis Moderate; RBC 2.65 m/uL (3.80-5.40); RDW 20.4 % (11.5-15.5); WBC (Perox) 5.99
[2016-09-24 17:47] LABS: Add Differential Manual Differential
[2016-09-24 17:50] LABS: Nucleated Red Blood Cells 1 /100 WBC (0-0); Total Cells Counted 200
[2016-09-24 17:51] LABS: Large Platelets Present; Manual Review Performed; Polychromasia Present; WBC 5.7 k/uL (3.8-10.6)
[2016-09-24 17:52] LABS: Ovalocytes Present; Target Cells Present
[2016-09-24 18:45] LABS: Calcium 7.3 mg/dL (8.4-10.2); Potassium 4.6 mmol/L (3.5-5.1)
--- NOTE | 2016-09-24 19:52 | CONS ---
DATE OF CONSULTATION: 09/24/2016 REASON FOR CONSULTATION: ICU care, chronic hypertension and GI bleed. HISTORY OF PRESENTING ILLNESS: Ms. Prachi Hutchinson is a 65-year-old female who is well known to me. This patient has a history of chronic renal failure, has been on hemodialysis. She is a resident of an [facility]. She was undergoing hemodialysis 2 hours. She started having some cough with phlegm mixed with streaks of blood. At the same time she had a significant amount of loose stool, diarrhea mixed with blood. The patient was eventually sent to the emergency department for further evaluation. The patient is undergoing blood transfusion, is now being admitted to the hospital. She has some component of confusion as well; usually it occurs when she is hypovolemic, dehydrated and anemic. Patient has an extensive cardiovascular history and history of chronic hypertension with baseline blood pressure into the 70s and 80s. She has significant peripheral arterial disease, especially of the upper extremities, which makes obtaining a correct blood pressure more difficult as well. But she has very good bounding pulses in the femoral area usually. Her past medical history is significant for: 1. Chronic persistent asthma. 2. Coronary artery disease. 3. History of angina. 4. CVA. 5. Diabetes. 6. Chronic renal failure, on dialysis. 7. Dyslipidemia. 8. [place]. 9. History of scoliosis. 10. Stroke back in 2010. 11. History of heart valve surgery. 12. Left eye macular degeneration. 13. Chronic hypertension. Past surgical history is significant for: 1. Coronary artery bypass surgery x3. 2. History of aortic valve replacement in June 2011. 3. History of bilateral arthroscopic surgery of ankles. 4. History of cardiac cath, angiogram and stent placement. FAMILY HISTORY AND SOCIAL HISTORY: Both father and mother with strong cardiovascular and diabetes history. She used to smoke about half to one pack per day; quit back in the 's. She smoked close to 25 years. Denies any substance or alcohol consumption. ALLERGIES: SULFA MEDICATION and ADHESIVE TAPE. MEDICATION AT HOME: 1. Protonix 40 mg daily. 2. Nepro 1 can 2 times a day. 3. K-Mag-Phos replacement. 4. Milk of Magnesia. 5. Vitamin C. 6. Dulcolax. 7. Proamatine (midodrine) 7.5 mg Tuesday, Tuesday, Tuesday. 8. Colace. 9. Plavix 75 mg. 10. PhosLo. 11. NovoLog sliding scale. 12. Ropinirole 2 mg daily. 13. Lexapro 40 mg a day. 14. Sensipar 90 mg daily. 15. Zocor 40 mg. 16. Singulair 10 mg a day. 17. Tylenol with codeine 4 times a day. 18. Xanax as needed. Patient currently has been started on IV fluids 100 mL/hour; also on Protonix drip. On examination, patient is arousable but prefers to keep eyes closed. Mildly anxious. Breathing comfortably. No other distress is present Her last set of vitals includes blood pressure 65/30, respiratory rate 18, pulse 88, temperature 97, saturation 98%. HEENT EXAMINATION: Oral mucosa is moist. Narrow pharyngeal opening is present. NECK: Supple without lymphadenopathy, jugular venous distention or carotid bruit. LUNGS: Bilateral good air entry is present with very fine expiratory rhonchi. HEART: Regular rate, rhythm. S1, S2 audible. ABDOMEN: Soft. No rebound or rigidity. EXTREMITIES: Plus one peripheral pulses. NEUROLOGICAL EXAMINATION: Otherwise awake and alert. No focal neurological deficit except somnolence; arousable, though. Labs reviewed. Medications reviewed. White cell count 6900, hemoglobin 7.5, hematocrit 25, platelet count 124,000. PT and INR are 25.9 and 1.4. Chemistry otherwise: BUN and creatinine are 27 and 2.7. Troponin is 0.07. LFTs are within normal limits. Lipase 260. EKG performed in the emergency department revealed ventricular paced beat, biventricular pacemaker detected. The chest x-ray performed in the emergency department was reviewed and revealed interstitial edema, small to moderate pleural effusion, and edema with right-sided lung mass re-demonstrated ( ) re-demonstrated. IMPRESSION: 1. Gastrointestinal bleed related to likely chronic renal failure. Occult source cannot be excluded. Patient is being admitted to the ICU. GI is on consult along with Renal. 2. Chronic renal failure. Patient to undergo and finish hemodialysis. 3. Chronic obstructive pulmonary disease. Will resume bronchodilator therapy. 4. Right-sided pleural effusion. Will monitor and observe closely. No plans for thoracentesis at this point in time, given patient is on Plavix. 5. Coronary artery disease. 6. Valvular heart disease, status post CABG x6. 7. History of aortic valve replacement. 8. Generalized weakness and medical debility. PLAN AND RECOMMENDATIONS: As above. Continue supportive care. Follow clinical course closely. Repeat x-ray and labs are being ordered. Will obtain a follow-up chest x-ray as well.
[2016-09-24] MEDS: PANTOPRAZOLE 40 MG/10 ML VIAL IVP SCH (21:21)
[2016-09-24 22:51] LABS: Anisocytosis Moderate; CH 30.2; CHCM 31.4; HCT 25.3 % (34.0-46.0); HDW 4.42; HGB 7.9 gm/dL (11.4-16.0); Hypochromasia Marked; MCH 30.5 pg (25.0-35.0); MCHC 31.1 g/dL (31.0-37.0); Macrocytosis Moderate; Mean Platelet Volume 10.6; Poikilocytosis Moderate; RBC 2.58 m/uL (3.80-5.40); RDW 20.5 % (11.5-15.5); WBC 6.9 k/uL (3.8-10.6); WBC (Perox) 6.89
[2016-09-24 23:01] LABS: Add Differential Manual Differential
[2016-09-24 23:03] LABS: Manual Review Performed; Nucleated Red Blood Cells 0 /100 WBC (0-0); Total Cells Counted 100
[2016-09-24 23:04] LABS: Ovalocytes Present; Polychromasia Present; Spherocytes Present
[2016-09-24 23:14] LABS: Glucose,Whole Blood 141 mg/dL (75-99)
[2016-09-24] MEDS: INSULIN LISPRO (humaLOG) 300 UNIT/3 ML VIAL SQ SCH (23:29)
[2016-09-25 01:58] LABS: Anisocytosis Moderate; CH 29.7; CHCM 29.9; HCT 23.9 % (34.0-46.0); HDW 4.24; HGB 7.3 gm/dL (11.4-16.0); Hypochromasia Marked; Large Platelets Flag Slight; MCH 30.7 pg (25.0-35.0); MCHC 30.3 g/dL (31.0-37.0); MCV 101.2 fL (80.0-100.0); Macrocytosis Moderate; Mean Platelet Volume 10.9; Poikilocytosis Moderate; RBC 2.37 m/uL (3.80-5.40); RDW 20.2 % (11.5-15.5); WBC 6.1 k/uL (3.8-10.6)
[2016-09-25] MEDS: HYDROcodone/APAP 10-325MG 1 EACH TAB PO PRN ×2 (05:10→12:49)
[2016-09-25 06:33] LABS: Calcium 7.3 mg/dL (8.4-10.2); Potassium 4.8 mmol/L (3.5-5.1); Total Bilirubin 1.1 mg/dL (0.2-1.3); Total Protein 5.7 g/dL (6.3-8.2)
--- NOTE | 2016-09-25 07:43 | XR ---
EXAMINATION TYPE: XR chest 1V portable DATE OF EXAM: 09/25/2016 6:59 AM HISTORY: Shortness of breath. COMPARISON: September 24, 2016 TECHNIQUE: Single view of the chest is submitted. FINDINGS: Demonstrated are scattered senescent parenchymal change. There is increasing infiltrate throughout the right mid and right lower lung zones. Persistent right upper lobe consolidation and/or volume loss. The heart is stable. Hilar and mediastinal structures are within normal limits. Degenerative changes are seen of the dorsal spine. IMPRESSION: 1. There is increasing infiltrate throughout the right mid and right lower lung zones. Persistent ri ght upper lobe consolidation and/or volume loss.
[2016-09-25] MEDS: IPRATROPIUM-ALBUTEROL 3 ML NEB INHALATION SCH ×4 (07:45→19:30)
[2016-09-25] MEDS ORDERED: HYDROmorphone 1 MG/ML 1 ML SYRINGE IM PRN (08:34)
[2016-09-25 08:49] LABS: Glucose,Whole Blood 151 mg/dL (75-99)
[2016-09-25] MEDS ORDERED: IV VANCOMYCIN PER PHARMACY 1 EACH MISC MISCELLANE PRN (08:57)
[2016-09-25] MEDS: ALPRAZolam 0.5 MG TAB PO PRN (09:07)
[2016-09-25] MEDS: PANTOPRAZOLE 40 MG/10 ML VIAL IVP SCH ×2 (09:08→21:32)
[2016-09-25] MEDS: INSULIN LISPRO (humaLOG) 300 UNIT/3 ML VIAL SQ SCH ×4 (09:31→21:32)
[2016-09-25] MEDS: HYDROmorphone 1 MG/ML 1 ML SYRINGE IVP PRN ×2 (09:32→14:26)
[2016-09-25] MEDS: PIPERACILLIN-TAZOBACTAM 3.375 GM in DEXTROSE/WATER 1 50ML.BAG IVPB SCH ×2 (09:32→21:32)
[2016-09-25 11:22] LABS: Anisocytosis Moderate; Basophils % (A) 0 %; CH 30.3; CHCM 31.3; Eosinophils % (A) 1 %; HCT 26.7 % (34.0-46.0); HDW 4.46; HGB 8.3 gm/dL (11.4-16.0); Hypochromasia Marked; Luc % (Auto) 3; Lymphocytes # (A) 1.1 k/uL (1.0-4.8); Lymphocytes % (A) 17 %; MCH 30.7 pg (25.0-35.0); MCHC 31.1 g/dL (31.0-37.0); MCV 98.6 fL (80.0-100.0); Macrocytosis Moderate; Mean Platelet Volume 10.7; Monocytes # (A) 0.4 k/uL (0-1.0); Monocytes % (A) 6 %; Neutrophils # (A) 4.5 k/uL (1.3-7.7); Neutrophils % (A) 73 %; Poikilocytosis Moderate; RBC 2.71 m/uL (3.80-5.40); RDW 20.1 % (11.5-15.5); WBC 6.2 k/uL (3.8-10.6); WBC (Perox) 6.65
[2016-09-25 11:45] LABS: Polychromasia Present
[2016-09-25 11:49] LABS: Hemoglobin A1C 5.4 % (4.2-6.1)
--- NOTE | 2016-09-25 12:42 | PN ---
A 65-year-old female, seen, evaluated, examined in ICU. Critical care time spent 35 minutes. Ms. Prachi Hutchinson is a 65-year-old female with problems associated with lower GI bleed. The patient has lost significant amount of blood. This morning she had a small amount of liquid blood, dark maroon in color per rectum. Hemoglobin continued to drop down. She just has finished the fourth unit of packed RBC. Her mental status has significantly improved. Blood pressure checked remains undetectable due to severe peripheral arterial disease. She is awake and alert now. She has issues associated with anxiety and pain. I am going to resume her Xanax. She is on [place] 3 times a day. Will add Dilaudid as needed. Her last chest x-ray performed earlier today reviewed and compared with the prior x-ray. The patient does appear to be manifesting the right mid lung and right lower lung field pneumonia along with some volume loss in the right upper lobe as well. Suggestive of right-sided pneumonia. Pacemaker site is intact. Her current laboratory data reviewed. White cell count is 6100, hemoglobin and hematocrit 7.3 and 23, platelet count 102,000. Sodium 145, potassium 4.8, BUN and creatinine 49 and 3.68. On examination, blood pressure remains undetected. Her heart rate is 88. Temperature is 98. Saturation is 96% on 3 L oxygen. HEENT EXAMINATION: Otherwise unremarkable. Oral mucosa is moist. NECK: Supple without lymphadenopathy. Neck veins are prominent. LUNGS: Bilateral good air entry is present. Bronchial breath sounds and crackles are present on the right side. HEART: Regular rate and rhythm. S1 and S2 audible. ABDOMEN: Soft. No rebound or rigidity. EXTREMITIES: No edema. NEUROLOGICAL EXAMINATION: Otherwise, awake and alert. Moving all 4 extremities. Triple lumen catheter site in the left groin is intact. IMPRESSION: 1. Lower gastrointestinal bleed. 2. Right-sided pneumonia. 3. Chronic renal failure on hemodialysis. 4. Severe chronic obstructive pulmonary disease. PLAN: To add patient on broad-spectrum antibiotics in the form of Zosyn, obtain a sputum. Will give one dose of vancomycin as well. Critical care time spent 35 minutes.
[2016-09-25 12:47] LABS: Glucose,Whole Blood 128 mg/dL (75-99)
[2016-09-25] MEDS: SODIUM CHLORIDE 0.9% 1,000 ML IV SCH (12:51)
[2016-09-25] MEDS ORDERED: VANCOMYCIN 1,500 MG in SODIUM CHLORIDE 0.9% 250 ML IVPB ONE (14:00)
--- NOTE | 2016-09-25 14:15 | CONS ---
DATE OF CONSULTATION: REASON FOR CONSULT: End-stage renal disease. HISTORY OF PRESENT ILLNESS: Patient is a 65-year-old white female with history of end-stage renal disease on hemodialysis on a Tuesday, Tuesday, Tuesday schedule. She was sent in from the dialysis unit with low blood pressure. She also had some altered mentation. Patient states that she was vomiting blood, and also had bright red blood in her stools. She states she had an endoscopy and colonoscopy sometime in July. GI has been consulted. Her hemoglobin was 7.5 g/dL. She did get transfused and it is now up to 8.3; however, she continues to have blood in her stools. PAST MEDICAL HISTORY: End-stage renal disease, anemia of chronic disease, CKD associated bone mineral disorder, chronic hypotension, coronary artery disease, history of CVA/TIA, history of MA, asthma, type 2 diabetes, valvular heart disease, history of MRSA infection. PAST SURGICAL HISTORY: Adenoidectomy, valvular heart surgery, coronary artery bypass surgery, tonsillectomy, cardiac catheterization, surgery on ankles, pacemaker placement. SOCIAL HISTORY: The patient is an ex-smoker. No history of drug abuse or alcohol abuse. Medications at home included Protonix, Nepro, midodrine, Plavix, Colace, PhosLo, insulin, Lexapro, Sensipar, Zocor, Singulair, Xanax and ropinirole. On examination, the patient is currently comfortable, awake. She is not in any acute distress. Alert and oriented x3. Blood pressure is not measured as we have not been able to accurately check her blood pressure and this is present as outpatient as well. Heart rate at about 78 per minute. The patient is afebrile. EXAMINATION OF THE HEART: S1 and S2. EXAMINATION OF THE LUNGS: Bilateral breath sounds are heard. ABDOMEN: Soft, nontender. Examination of lower extremities shows no significant edema. Chronic skin changes are noted. Labs show sodium of 145, potassium 4.8. Hemoglobin 8.3 g/dL. ASSESSMENT: 1. End-stage renal disease on hemodialysis on a Tuesday, Tuesday, Tuesday schedule. 2. Gastrointestinal bleed. Gastroenterology has been consulted. Patient has been transfused packed RBCs. She did have a previous endoscopy and colonoscopy sometime in July according to the patient. 3. Chronic kidney disease bone mineral disorder. 4. Coronary artery disease. PLAN: Await GI input. Patient may need to be scoped again. If she continues to have active bleeding, I will give her a dose of DDAVP. At this time she is hemodynamically stable.
[2016-09-25] MEDS ORDERED: ALPRAZolam 0.5 MG TAB PO PRN (15:23)
--- NOTE | 2016-09-25 16:39 | PN ---
CHIEF COMPLAINT: Gastrointestinal bleed. HISTORY OF PRESENT ILLNESS: This 65-year-old woman with a past medical history of multiple medical problems including chronic renal failure on hemodialysis, history of coronary artery disease, CABG, hypertension, history of diabetes type 2, peripheral vascular disease, hyperlipidemia, history of myocardial infarction being followed by in the outpatient setting was admitted to [facility] with complaints of GI bleed. The patient had vomiting of blood and as well as maroon colored stools after hemodialysis. Patient was in [place], but subsequently sent to [facility] Emergency Room and was admitted for further evaluation and treatment. Patient received 4 units of transfusion so far. The patient is closely. Patient had low blood pressure previously and low blood pressure also. PAST MEDICAL HISTORY: History of asthma, CAD, history of CHF, CVA, TIA, diabetes mellitus, history of chronic renal failure on hemodialysis, history of myocardial infarction, history of AICD, adenoidectomy, cardiac valve replacement, CABG, cardiac catheterization. Medications prior to admission include the home medications are: 1. Requip 2 mg q.h.s. 2. Zocor 40 mg q.h.s. 3. Protonix 40 mg daily. 4. Nepro 1 capsule p.o. b.i.d. 5. Fleets 133 rectal p.r.n. 6. Singulair 10 mg q.h.s. 7. ProAmatine 7.5 mg Tuesday, Tuesday, Tuesday. 8. Milk of magnesia. 9. NovoLog. 10. '[place] 10 mg q.6 p.r.n. 11. Vitamin C. 12. Nephrocaps 1 cap p.o. daily. 13. Lexapro 40 mg p.o. daily. 14. Colace 100 mg p.o. b.i.d. 15. Plavix 75 mg p.o. daily. 16. Sensipar 90 mg p.o. daily and 30 mg p.o. daily. 17. Cevimeline 30 mg p.o. daily. 18. PhosLo 667 t.i.d. 19. Dulcolax 10 mg daily p.r.n. 20. Xanax 0.5 t.i.d. p.r.n. ALLERGIES: ADHESIVE TAPES, SULFA, SULFAMIDE. FAMILY HISTORY: History of congestive heart failure, blocked carotids, kidney failure in the family. SOCIAL HISTORY: Previous history of smoking. REVIEW OF SYSTEMS: EENT: No diminished hearing. No diminished vision. CARDIOVASCULAR: No angina. RESPIRATORY: As mentioned earlier. GI: As mentioned earlier.. : No dysuria. NERVOUS SYSTEM: No numbness or weakness. ALLERGY/IMMUNOLOGY: No asthma or hayfever. MUSCULOSKELETAL: As mentioned earlier. HEMATOLOGY/ONCOLOGY: No history of anemia. ENDOCRINE: As mentioned earlier. CONSTITUTIONAL: As mentioned earlier. DERMATOLOGY: Negative. RHEUMATOLOGY: Negative. PSYCHIATRY: As mentioned earlier. PHYSICAL EXAMINATION: The patient is alert and oriented x3. Pulse is 83. Pulse ox 93% on 3 L. Respirations are 14. The blood pressure is low, unrecordable. Temperature 98.3. HEENT: Conjunctivae normal. NECK: No jugular venous distention. CARDIOVASCULAR: S1 and S2, muffled. RESPIRATORY: Breath sounds diminished at the bases. A few scattered rhonchi, no crackles. ABDOMEN: Soft, obese, nontender. No mass palpable. LEGS: No edema, no swelling. NERVOUS SYSTEM: Higher function as mentioned. Moves all 4 limbs. No focal motor or sensory deficits. LYMPHATICS: No lymphadenopathy of neck, axillae or groin. SKIN: No ulcer, rash or bleeding. LABS: WBC 6.2, hemoglobin is 8.3. Glucose 128. ASSESSMENT: 1. Acute lower gastrointestinal bleeding with blood loss anemia, status post multiple transfusions. 2. Thrombocytopenia. 3. Chronic kidney failure on hemodialysis. 4. Chronic kidney disease, stage IV. 5. Hypocalcemia. 6. Hypoalbuminemia with mild to moderate protein calorie malnutrition. 7. History of asthma. 8. History of asthma. 9. History of coronary artery disease. 10. History of congestive heart failure. 11. History of cerebrovascular accident, transient ischemic attack. 12. Diabetes mellitus type 2. 13. Hyperlipidemia. 14. History of myocardial infarction. 15. History of methicillin-resistant Staphylococcus aureus. 16. History of MDRO Acinetobacter. 17. Automatic implantable cardioverter-defibrillator. 18. History of coronary artery disease, coronary artery bypass graft. 19. History of degenerative joint disease.. 20. Obesity with body mass index of 36.6. 21. History of scoliosis. 22. FULL CODE. 23. History of cardiac valve replacement. RECOMMENDATIONS AND DISCUSSION: In this 65-year-old woman who presented with multiple complex medical issues, will monitor the patient closely. Continue the current medications. Continue symptomatic treatment. Will monitor the patient closely. Closely follow with Dr. Chung. Monitor hemoglobin closely. Transfuse on a basis. Otherwise, gastroenterology consultation has been sought for recommendations . KARINE
[2016-09-25 16:58] LABS: Glucose,Whole Blood 238 mg/dL (75-99)
[2016-09-25 17:31] LABS: Anisocytosis Moderate; Basophils % (A) 0 %; CH 30.2; Eosinophils # (A) 0.1 k/uL (0-0.7); Eosinophils % (A) 1 %; HCT 27.4 % (34.0-46.0); HDW 4.51; HGB 8.5 gm/dL (11.4-16.0); Hypochromasia Marked; Large Platelets Flag Slight; Luc # (Auto) 0.17; Luc % (Auto) 3; Lymphocytes # (A) 1.3 k/uL (1.0-4.8); Lymphocytes % (A) 21 %; MCH 30.7 pg (25.0-35.0); MCHC 30.9 g/dL (31.0-37.0); MCV 99.4 fL (80.0-100.0); Macrocytosis Moderate; Mean Platelet Volume 12.4; Monocytes # (A) 0.4 k/uL (0-1.0); Monocytes % (A) 7 %; Neutrophils # (A) 4.2 k/uL (1.3-7.7); Neutrophils % (A) 69 %; Poikilocytosis Moderate; RBC 2.76 m/uL (3.80-5.40); RDW 20.3 % (11.5-15.5); WBC 6.2 k/uL (3.8-10.6)
[2016-09-25 18:05] LABS: Manual Review Performed
[2016-09-25 21:13] LABS: Glucose,Whole Blood 246 mg/dL (75-99)
[2016-09-25 21:13] LABS: Glucose,Whole Blood 233 mg/dL (75-99)
[2016-09-26 02:06] LABS: Anisocytosis Moderate; CH 30.6; CHCM 31.4; HCT 26.5 % (34.0-46.0); HDW 4.42; HGB 8.1 gm/dL (11.4-16.0); Hypochromasia Marked; MCH 30.4 pg (25.0-35.0); MCHC 30.6 g/dL (31.0-37.0); MCV 99.2 fL (80.0-100.0); Macrocytosis Moderate; Poikilocytosis Moderate; RBC 2.67 m/uL (3.80-5.40); RDW 20.3 % (11.5-15.5)
[2016-09-26 06:02] LABS: Calcium 7.7 mg/dL (8.4-10.2); Potassium 4.3 mmol/L (3.5-5.1); Total Bilirubin 0.9 mg/dL (0.2-1.3); Total Protein 5.8 g/dL (6.3-8.2)
[2016-09-26] MEDS: HYDROmorphone 1 MG/ML 1 ML SYRINGE IVP PRN ×2 (06:34→18:39)
--- NOTE | 2016-09-26 07:07 | XR ---
EXAMINATION TYPE: XR chest 1V portable DATE OF EXAM: 09/26/2016 6:48 AM HISTORY: Shortness of breath. COMPARISON: September 25, 2016 TECHNIQUE: Single view of the chest is submitted. FINDINGS: Demonstrated are scattered senescent parenchymal change. There is persistent but improved right midlung zone infiltrate. The heart is enlarged without persistent pulmonary venous congestion. Hilar and mediastinal structures are within normal limits. Degenerative changes are seen of the dorsal spine. IMPRESSION: 1. There is persistent but improved right midlung zone infiltrate. The heart is enlarged without persistent pulmonary venous congestion.
[2016-09-26 07:42] LABS: Glucose,Whole Blood 143 mg/dL (75-99)
[2016-09-26] MEDS: IPRATROPIUM-ALBUTEROL 3 ML NEB INHALATION SCH ×4 (07:49→20:11)
[2016-09-26] MEDS: INSULIN LISPRO (humaLOG) 300 UNIT/3 ML VIAL SQ SCH ×4 (08:16→23:31)
[2016-09-26] MEDS: ESCITALOPRAM 20 MG TAB PO SCH (08:17)
[2016-09-26] MEDS: PANTOPRAZOLE 40 MG/10 ML VIAL IVP SCH ×2 (08:17→23:28)
[2016-09-26] MEDS: PIPERACILLIN-TAZOBACTAM 3.375 GM in DEXTROSE/WATER 1 50ML.BAG IVPB SCH ×2 (08:37→23:27)
[2016-09-26 08:47] LABS: Anisocytosis Slight; Basophils % (A) 0 %; CH 30.2; CHCM 30.8; Eosinophils # (A) 0.2 k/uL (0-0.7); Eosinophils % (A) 2 %; HCT 26.8 % (34.0-46.0); HDW 4.23; HGB 8.4 gm/dL (11.4-16.0); Hypochromasia Marked; Luc # (Auto) 0.17; Luc % (Auto) 3; Lymphocytes % (A) 15 %; MCH 31.3 pg (25.0-35.0); MCHC 31.4 g/dL (31.0-37.0); MCV 99.7 fL (80.0-100.0); Macrocytosis Moderate; Mean Platelet Volume 10.9; Monocytes # (A) 0.4 k/uL (0-1.0); Monocytes % (A) 6 %; Neutrophils # (A) 4.9 k/uL (1.3-7.7); Neutrophils % (A) 74 %; Poikilocytosis Moderate; RBC 2.69 m/uL (3.80-5.40); WBC 6.6 k/uL (3.8-10.6)
--- NOTE | 2016-09-26 10:07 | PN ---
Patient is seen for follow-up for end-stage renal disease. She was admitted to the hospital with gastrointestinal bleed. She continues to have small amounts of maroon-colored bowel movements. Her hemoglobin is at 8.4 g/dL, which is fairly stable. Patient is normally maintained on a Tuesday, Tuesday, Tuesday schedule for dialysis. She will be seen by GI today. On examination, the patient is comfortable. She is awake, alert, oriented x3. Heart rate about 82 per minute. She is afebrile. We have not been able to get her blood pressure as it has been in accurate in both upper and lower extremities even at dialysis. Examination of the heart S1 and S2. No murmur, rub or gallop is heard. Examination of the lungs: Decreased breath sounds in bases. Abdomen is soft, obese. Examination of lower extremities shows chronic skin changes. No significant edema is noted at this time. Labs show hemoglobin 8.4, sodium 144, potassium 4.3. ASSESSMENT: 1. End-stage renal disease on hemodialysis on a Tuesday, Tuesday, Tuesday schedule via left arm AV fistula. Patient will be dialyzed tomorrow. 2. Gastrointestinal bleed with stable hemoglobin currently but continued to have small amounts of maroon-colored bowel movements. Awaiting gastrointestinal input. Patient stated that she had an endoscopy and colonoscopy sometime in July. 3. Chronic kidney disease bone mineral disorder. PLAN: Hemodialysis in a.m. Awaiting GI input.
[2016-09-26 12:06] LABS: Glucose,Whole Blood 161 mg/dL (75-99)
[2016-09-26] MEDS: SODIUM CHLORIDE 0.9% 1,000 ML IV SCH (12:45)
[2016-09-26] MEDS: HYDROcodone/APAP 10-325MG 1 EACH TAB PO PRN (15:04)
--- NOTE | 2016-09-26 15:14 | PN ---
DATE OF SERVICE: 09/26/2016 Ms. Pracih Hutchinson is seen, evaluated and examined in the ICU. This patient is a 65-year-old female with severe anemia, GI bleed and chronic renal failure. Her hemoglobin is being monitored and observed closely. She is still having intermittent GI bleed. GI Service is following. Her last set of vitals include heart rate of 95, temperature 98, saturation 96% on 5 L oxygen. Her last chest x-ray performed revealed extensive right-sided pneumonia. Today's x-ray reviewed as well compared with the prior x-ray continued to show right mid lung field and right lower lobe infiltrate, slight improvement has been seen. Labs reviewed. Medications reviewed. Hemoglobin is stable and improved to 8.4. IMPRESSION: 1. Gastrointestinal bleed. 2. Acute on chronic hypoxic respiratory failure. 3. Right-sided pneumonia on broad-spectrum antibiotics. 4. Chronic renal failure. 5. Gastrointestinal bleed. 6. Severe degree of peripheral arterial disease. PLAN AND RECOMMENDATIONS: As above. Continue supportive care. Follow clinical course closely. Monitor hemoglobin closely. Continue supplemental oxygen and broad-spectrum antibiotics. Will follow.
[2016-09-26 16:30] LABS: Glucose,Whole Blood 242 mg/dL (75-99)
[2016-09-26] MEDS: ALPRAZolam 0.5 MG TAB PO PRN (16:33)
[2016-09-26 20:59] LABS: Glucose,Whole Blood 181 mg/dL (75-99)
--- NOTE | 2016-09-27 02:49 | P.CONS ---
History of Present Illness - Reason for Consult Consult date: 09/26/16 - History of Present Illness The patient is a 65-year old female with ESRD on hemodialysis, was admitted to the hospital with GI bleeding. Apparently she had dark/bloody BM and vomited blood as well and was noted during dialysis to have low BP and show some mental changes. She had GI bleeding in the past and has underwent EGD and colonoscopy last May with the finding of gastritis and colon polyps. Patient had no further bleeding in the hospital, but she remains concerned and her family would like to find out what is the cause of the problem. Review of Systems Constitutional: Denied fever, chills or unintentional weight loss Neurologic: No headahes, double vision or sensory or motor changes Cardiopulmonary: No chest pains, SOB or palpitations Gastrointestinal: See PI above Genitourinary: No hematuria, dysuria or frequency Endocrine: No polyphagia or polydypsia Hematology: No bleeding tendency or bruising Skin: No rashes Psychiatric: No anxiety or depression Past Medical History Past Medical History: Asthma, Coronary Artery Disease (CAD), Chest Pain / Angina , Heart Failure, CVA/TIA, Diabetes Mellitus, Dialysis, Hyperlipidemia, Myocardial Infarction (AR), Renal Disease Additional Past Medical History / Comment(s): Pt recently admitted 09/17/16 with anemia/CHF/hypotension/chronic renal failure. Other HX: End stage kidney failure, on dialysis //Tue; chronic anemia, lower GI bleed d/t colorectal polyps, scoliosis right hip; cva in 2010 - no residual other than eyes tear frequently; aortic stenosis with surgery then calcified and replaced again, left eye macular degeneration. Hypotension with systolic blood pressures normally running below 90 and diastolic pressure below 60. Last Myocardial Infarction Date:: 02/2013 History of Any Multi-Drug Resistant Organisms: MRSA Year Discovered:: 2009 MDRO Source:: Wound-not specified with MRSA & MDRO Acinetobacter Past Surgical History: Adenoidectomy, AICD, Cardiac Valve Replacement, Section, Coronary Bypass/CABG, Heart Catheterization, Orthopedic Surgery, Pacemaker, Tonsillectomy Additional Past Surgical History / Comment(s): 05/30/16 EGD/colonoscopy with polypectomy, cabg sep 2009 x 6 vessels; AV replaced jun 2011 and 2012, arthroscopies bhavya knees, AVF bilateral arms, AICD/pacer 05/2014 Past Anesthesia/Blood Transfusion Reactions: No Reported Reaction Type of Cardiac Device: Permanent Pacemaker, AICD Device Placement Date:: 06/04 Past Psychological History: No Psychological Hx Reported Additional Psychological History / Comment(s): Pt just admitted to [facility] . She is an extensive assist to wheelchair. She goes to hemodialysis on TUE/ TUE/FRI. Smoking Status: Former smoker Past Alcohol Use History: Rare Additional Past Alcohol Use History / Comment(s): "couple sips of beer throughout the year" started smoking at age 14 smoked 1 ppd, quit in 1981 Past Drug Use History: None Reported - Past Family History Father Family Medical History: Congestive Heart Failure (CHF), Diabetes Mellitus Mother Family Medical History: Diabetes Mellitus Additional Family Medical History / Comment(s): blocked carotids; kidney failure Sister(s) Family Medical History: Cancer Medications and Allergies Home Medications Medication Instructions Recorded Confirmed Type Cinacalcet HCl [Sensipar] 30 mg PO DAILY@1700 04/07/14 10/02/16 History Montelukast [Singulair] 10 mg PO HS@209904/07/14 10/02/16 History Simvastatin [Zocor] 40 mg PO HS@209908/18/15 10/02/16 History Cinacalcet HCl [Sensipar] 90 mg PO DAILY@1700 04/02/16 10/02/16 History Escitalopram [Lexapro] 40 mg PO DAILY@0800 04/02/16 10/02/16 History rOPINIRole HCL [Ropinirole HCl] 2 mg PO HS@209904/02/16 10/02/16 History Cevimeline HCl 30 mg PO DAILY@0800 05/28/16 10/02/16 History Insulin Aspart [NovoLOG] See Protocol SQ ACHS 05/28/16 10/02/16 History Calcium Acetate [PhosLo] 667 mg PO TID@0800,1200,1700 09/17/16 10/02/16 History Clopidogrel Bisulfate [Plavix] 75 mg PO DAILY@0800 09/17/16 10/02/16 History Docusate [Colace] 100 mg PO BID@0800,1700 09/17/16 10/02/16 History Bisacodyl [Dulcolax] 10 mg RECTAL DAILY PRN 09/24/16 10/02/16 History Folic Acid-Vit B Complex-Vit C 1 cap PO DAILY@1700 09/24/16 10/02/16 History [Nephrocaps] Magnesium Hydroxide [Milk of 2,400 mg PO DAILY PRN 09/24/16 10/02/16 History Magnesia] Na Phos,M-B/Na Phos,Di-Ba [Fleet 133 ml RECTAL ONCE PRN 09/24/16 10/02/16 History Adult] Nepro 1 can PO BID@0800,1700 09/24/16 10/02/16 History Pantoprazole Sodium [Protonix] 40 mg PO DAILY@0800 09/24/16 10/02/16 History HYDROcodone/APAP 10-325MG [[place] 1 tab PO Q4H PRN 10/02/16 10/02/16 History 10-325] Allergies Allergy/AdvReac Type Severity Reaction Status Date / Time adhesive Allergy Rash/Hives Verified 10/02/16 15:02 Sulfa (Sulfonamide Allergy Rash/Hives Verified 10/02/16 15:02 Antibiotics) sulfacetamide sodium Allergy Unknown Verified 10/02/16 15:02 [From Sulfamide] Physical Exam Vitals: Vital Signs Temp Pulse Pulse Resp Pulse Ox 09/26/16 18:23 99.5 F 93 21 91 L 09/26/16 16:00 84 18 93 L 09/26/16 15:53 92 09/26/16 15:42 90 09/26/16 15:00 96 20 93 L 09/26/16 14:00 97 18 96 09/26/16 13:00 98.2 F 92 17 09/26/16 12:00 85 16 98 09/26/16 11:08 91 09/26/16 11:00 88 14 97 09/26/16 10:58 90 09/26/16 10:00 87 15 96 09/26/16 09:00 95 14 96 09/26/16 08:00 98.4 F 82 17 97 09/26/16 07:59 81 09/26/16 07:51 82 93 L 09/26/16 07:00 85 15 93 L 09/26/16 06:00 96 14 98 09/26/16 05:00 81 14 92 L 09/26/16 04:00 97.4 F L 82 19 95 02/05/17 03:00 81 14 93 L 09/26/16 02:00 80 16 95 09/26/16 01:00 92 20 92 L 09/26/16 00:00 97.3 F L 82 18 96 Intake and Output 09/26/16 09/26/16 09/27/16 14:59 22:59 06:59 Intake Total 370 20 Balance 370 20 Intake: Intake, IV Titration 130 20 Amount Piperacillin-Tazobactam 3 50 .375 gm In Dextrose/Water 1 50ml.bag @ 12.5 mls/hr IVPB Q12HR ISABEL Rx#: [id number] Sodium Chloride 0.9% 1, 80 20 000 ml @ 10 mls/hr IV . Q24H ISABEL Rx#:[id number] Oral 240 Other: # Bowel Movements 1 General appearance: The patient is alert, oriented, in no acute distress. HET: Head is normocephalic and atraumatic. Pupils are equal and reactive. Oropharynx is clear without lesions. Neck: Supple without lymphadenopathy. Trachea midline. Heart: S1 S2. Regular rate and rhythm. Lungs: No crackles or wheezes are heard. Abdomen: Soft, diffuse upper epigastric pain, nondistended with bowel sounds. No peritoneal signs. No palpable organomegaly or masses. Extremities: Normal skin color and turgor. No cyanosis, rash, ulceration, clubbing, or edema. Radial and pedal pulses are 2/4 bilaterally. Neurological: No focal deficits. Strength and sensation are grossly intact. Results CBC & Chem 7: 09/30/16 13:52 10/01/16 08:48 Labs: Abnormal Lab Results - Last 24 Hours (Table) 09/26/16 09/26/16 09/26/16 Range/Units 01:47 01:47 07:40 RBC 2.67 L (3.80-5.40) m/uL Hgb 8.1 L (11.4-16.0) gm/dL Hct 26.5 L (34.0-46.0) % MCHC 30.6 L (31.0-37.0) g/dL RDW 20.3 H (11.5-15.5) % Plt Count 103 L (150-450) k/uL BUN 57 H (7-17) mg/dL Creatinine 4.33 H (0.52-1.04) mg/dL Glucose 108 H (74-99) mg/dL POC Glucose (mg/dL) 143 H (75-99) mg/dL Calcium 7.7 L (8.4-10.2) mg/dL Alkaline Phosphatase 146 H (38-126) U/L Total Protein 5.8 L (6.3-8.2) g/dL Albumin 2.9 L (3.5-5.0) g/dL 09/26/16 09/26/16 09/26/16 Range/Units 08:30 12:05 16:27 RBC 2.69 L (3.80-5.40) m/uL Hgb 8.4 L (11.4-16.0) gm/dL Hct 26.8 L (34.0-46.0) % MCHC (31.0-37.0) g/dL RDW 20.0 H (11.5-15.5) % Plt Count 104 L (150-450) k/uL BUN (7-17) mg/dL Creatinine (0.52-1.04) mg/dL Glucose (74-99) mg/dL POC Glucose (mg/dL) 161 H 242 H (75-99) mg/dL Calcium (8.4-10.2) mg/dL Alkaline Phosphatase (38-126) U/L Total Protein (6.3-8.2) g/dL Albumin (3.5-5.0) g/dL 09/26/16 Range/Units 20:54 RBC (3.80-5.40) m/uL Hgb (11.4-16.0) gm/dL Hct (34.0-46.0) % MCHC (31.0-37.0) g/dL RDW (11.5-15.5) % Plt Count (150-450) k/uL BUN (7-17) mg/dL Creatinine (0.52-1.04) mg/dL Glucose (74-99) mg/dL POC Glucose (mg/dL) 181 H (75-99) mg/dL Calcium (8.4-10.2) mg/dL Alkaline Phosphatase (38-126) U/L Total Protein (6.3-8.2) g/dL Albumin (3.5-5.0) g/dL Assessment and Plan Plan: 65-year old female GI bleeding likely upper GI in nature. Will start the investigation by EGD, if negative, will plan capsule endoscopy prior to repeat colonoscopy.
[2016-09-27] MEDS: HYDROmorphone 1 MG/ML 1 ML SYRINGE IVP PRN ×4 (03:44→23:19)
[2016-09-27] MEDS: IPRATROPIUM-ALBUTEROL 3 ML NEB INHALATION SCH ×4 (07:16→19:34)
[2016-09-27 07:33] LABS: Glucose,Whole Blood 151 mg/dL (75-99)
[2016-09-27] MEDS: INSULIN LISPRO (humaLOG) 300 UNIT/3 ML VIAL SQ SCH ×4 (08:07→21:57)
--- NOTE | 2016-09-27 08:07 | P.PN ---
Subjective Principal diagnosis: GI bleed with anemia This is a continue present on a 65-year-old white female essentially admitted for gastric intestinal bleeding. She has an underlying history of end-stage renal disease in is being dialyzed. She is quite disoriented today. I will review her medications and make sure that she's not taking anything when necessary related to altered mental status. Laboratory examination is otherwise noted. Objective - Vital Signs Vital signs: Vital Signs Temp 99.8 F H 09/27/16 07:00 Pulse 78 09/27/16 07:28 Resp 16 09/27/16 07:00 BP 65/27 09/24/16 12:16 Pulse Ox 94 L 09/27/16 07:19 Intake & Output 09/26/16 09/27/16 09/27/16 18:59 06:59 18:59 Intake Total 390 150 Balance 390 150 Weight 97 kg Intake: Intake, IV Titration 150 Amount Piperacillin-Tazobactam 3 50 .375 gm In Dextrose/Water 1 50ml.bag @ 12.5 mls/hr IVPB Q12HR [facility] Rx#: [id number] Sodium Chloride 0.9% 1, 100 000 ml @ 10 mls/hr IV . Q24H ISABEL Rx#:[id number] Oral 240 150 Other: # Voids 0 # Bowel Movements 1 0 - Constitutional General appearance: Present: average body habitus, obese. Absent: no acute distress - Respiratory Respiratory: bilateral: CTA - Cardiovascular Rhythm: regular Heart sounds: normal: S1, S2 - Gastrointestinal General gastrointestinal: Absent: tenderness - Labs CBC & Chem 7: 09/26/16 08:30 09/26/16 01:47 Labs: Abnormal Lab Results - Last 24 Hours (Table) 09/26/16 09/26/16 09/26/16 Range/Units 08:30 12:05 16:27 RBC 2.69 L (3.80-5.40) m/uL Hgb 8.4 L (11.4-16.0) gm/dL Hct 26.8 L (34.0-46.0) % RDW 20.0 H (11.5-15.5) % Plt Count 104 L (150-450) k/uL POC Glucose (mg/dL) 161 H 242 H (75-99) mg/dL 09/26/16 09/27/16 Range/Units 20:54 06:50 RBC (3.80-5.40) m/uL Hgb (11.4-16.0) gm/dL Hct (34.0-46.0) % RDW (11.5-15.5) % Plt Count (150-450) k/uL POC Glucose (mg/dL) 181 H 151 H (75-99) mg/dL Assessment and Plan (1) Acute GI bleeding Status: Acute (2) GI hemorrhage Status: Acute (3) Heme positive stool Status: Acute (4) Renal failure (ARF), acute on chronic Status: Acute (5) Congestive heart failure (CHF) Status: Acute (6) High risk for readmission Status: Acute (7) Hx of CABG Status: Acute Plan: Continue follow blood counts closely. Review for altered mental status medications. Check CBC in a.m. Appreciate appropriate input from nephrology and pulmonology with GI. Hemodialysis today.
[2016-09-27 08:13] LABS: Potassium 4.6 mmol/L (3.5-5.1); Total Bilirubin 0.9 mg/dL (0.2-1.3); Total Protein 5.8 g/dL (6.3-8.2)
[2016-09-27 08:31] LABS: Anisocytosis Moderate; Basophils % (A) 0 %; CH 30.2; CHCM 30.2; Eosinophils # (A) 0.2 k/uL (0-0.7); Eosinophils % (A) 3 %; HCT 25.9 % (34.0-46.0); HDW 3.82; HGB 7.9 gm/dL (11.4-16.0); Hypochromasia Marked; Luc # (Auto) 0.16; Luc % (Auto) 2; Lymphocytes # (A) 1.2 k/uL (1.0-4.8); Lymphocytes % (A) 17 %; MCH 30.9 pg (25.0-35.0); MCHC 30.5 g/dL (31.0-37.0); MCV 101.3 fL (80.0-100.0); Macrocytosis Moderate; Monocytes # (A) 0.5 k/uL (0-1.0); Monocytes % (A) 7 %; Neutrophils # (A) 5.4 k/uL (1.3-7.7); Neutrophils % (A) 72 %; Poikilocytosis Slight; RBC 2.56 m/uL (3.80-5.40); RDW 20.2 % (11.5-15.5); WBC 7.5 k/uL (3.8-10.6); WBC (Perox) 7.61
[2016-09-27] MEDS: ESCITALOPRAM 20 MG TAB PO SCH (09:40)
[2016-09-27] MEDS: PANTOPRAZOLE 40 MG/10 ML VIAL IVP SCH ×2 (10:35→21:27)
[2016-09-27] MEDS: PIPERACILLIN-TAZOBACTAM 3.375 GM in DEXTROSE/WATER 1 50ML.BAG IVPB SCH ×2 (10:35→21:21)
[2016-09-27] MEDS: SODIUM CHLORIDE 0.9% 1,000 ML IV SCH (10:41)
--- NOTE | 2016-09-27 11:07 | PN ---
DATE OF SERVICE: 09/26/2016 INTERVAL HISTORY: Ms. Hutchinson is a 65-year-old female with no known history of multiple medical problems including ESRD on hemodialysis, coronary artery disease, coronary artery bypass graft and diabetes type 2, peripheral vascular disease, and history of MN and hyperlipidemia. Came into the hospital with complaints of marooned-colored stools and also clearing of blood and acute blood loss anemia. Patient had a blood transfusion, and initially hemoglobin was 7.5 on admission, hemoglobin currently at 8.4 today. Gastroenterology and Pulmonary are following this patient. GI is planning for endoscopy tomorrow a.m. Otherwise, the patient symptomatically slightly improved and is also being treated for pneumonia with antibiotics in the form of vancomycin and Zosyn. Pulmonary is following this patient has. Her chest x-ray today showed there is persistent but improved right mid lobe and mid lung zone infiltrate. REVIEW OF SYSTEMS: CONSTITUTIONAL: No fever. No chills. RESPIRATORY: No cough or sputum production. Patient does have short of breath, not worsening. CARDIOVASCULAR: No chest pain. No short of breath. ABDOMEN: No nausea or vomiting, abdominal pain. GENITOURINARY: Negative. ENDOCRINE: Negative. PSYCHIATRY: Negative. SKIN: Negative. All other 14-point review of systems negative, except as above. Current medications include Success 10, DuoNeb, Xanax, Lexapro, Dilaudid, Humalog, Zofran, Protonix, Zosyn, Requip, and normal saline. PHYSICAL EXAMINATION: A 65-year-old female lying in bed. Awake, alert, oriented x3. Appears to be in no apparent distress. VITALS: Blood pressure is 65/27, pulse is 84, respiration 18, temperature afebrile. Pulse ox is 93% on 2 L nasal cannula. HEENT: Atraumatic, normocephalic. Neck is supple. No JVD. CVS EXAM: S1, S2 heard. No murmurs or gallop. LUNGS: Bilateral diminished breath sounds, a few scattered rhonchi. No crackles. No wheezing. Nonlabored breathing. Abdomen is soft, nontender. Bowel sounds are present, obese. AQU[employer]MON[employer] OPERATOR: Awake, alert, oriented x3. Able to move all her extremities. EXTREMITIES: No edema. Pulses palpable bilaterally. PSYCHIATRIC: Cooperative. Could not evaluate completely. LABORATORY DATA: WBC 6.6, hemoglobin 8.4, platelets 104. Sodium 144, potassium 4.3, chloride 102, bicarb is 27. BUN 57, creatinine 4.33, albumin 2.9. IMPRESSION: 1. Acute blood loss anemia, secondary to gastrointestinal bleed. Gastroenterology is planning for EGD tomorrow. Will continue with the IV Protonix. 2. Right mid lung infiltrate with pneumonia, possible gram-negative and broad-spectrum antibiotics. 3. Endstage renal disease on hemodialysis. Nephrology is on board. 4. Hypoalbuminemia with mild to moderate calorie malnutrition. 5. Morbid obesity with body mass index of 36.8. 6. History of coronary artery disease with coronary artery bypass graft. 7. History of cerebrovascular accident/transient ischemic attack. 8. Diabetes type 2, insulin-dependent. 9. History of myocardial infarction. 10. History of MDR Acinetobacter. 11. History AICD. 12. Degenerative joint disease. 13. Congestive heart failure. 14. History of aortic valve replacement done with a TAVR approach and is being followed by Dr. Salgado. 15. Status post prophylactic AICD implantation. 16. Scoliosis. 17. Severe peripheral vascular disease. 18. FULL CODE. DISCUSSION AND PLAN: Patient will be continued on antibiotics in the form of vancomycin and Zosyn and continue with the PPI IV and monitor H&H and GI is planning for endoscopy tomorrow and Nephrology is following this patient for dialysis. Otherwise, will continue the current management and follow up closely. Prognosis is guarded with multiple medical problems and comorbid conditions.
[2016-09-27 12:04] LABS: Glucose,Whole Blood 137 mg/dL (75-99)
[2016-09-27] MEDS ORDERED: IV FLUID CONTINUATION 1,000 ML IV ONE (13:08)
[2016-09-27] MEDS ORDERED: PROPOFOL 10 MG/ML 20 ML VIAL IV ONE (13:21)
[2016-09-27] MEDS ORDERED: IV FLUID CONTINUATION 500 ML IV ONE (13:29)
--- NOTE | 2016-09-27 13:59 | P.PCN ---
Date of Procedure: 09/27/16 Procedure(s) Performed: Procedure: Esophagogastroduodenoscopy. Preoperative diagnosis: GI bleeding and anemia. Postoperative diagnosis: 1. Small sliding hiatal hernia with no obvious esophagitis or conjugated reflux disease or any esophageal varices or mucosal tears or active bleeding. 2. Minimal gastritis and mild duodenitis with no obvious ulcers or active bleeding. 3. All secretions encountered on this exam were bilious in color. Preparation and sedation: Was provided by anesthesia. Brief clinical history: The patient is a 65-year old female with ESRD on hemodialysis, was admitted to the hospital with GI bleeding. Apparently she had dark/bloody BM and vomited blood as well and was noted during dialysis to have low BP and showed some mental changes. She had GI bleeding in the past and has underwent EGD and colonoscopy last May with the finding of gastritis and colon polyps. Patient had no further bleeding in the hospital, but she remains concerned and her family would like to find out what is the cause of the problem. The details are summarized in the history and physical and dictated consultation. Procedure: With the patient on her left lateral decubitus position and after informed consent and adequate sedation, I passed the Olympus-GIF 160 video upper endoscope through the cricopharyngeus down the esophagus. The esophagus appeared healthy with no obvious erosions, ulcers, strictures or Jerry's esophagus. There were no mucosal tears or varices or any evidence of bleeding. There was a small sliding hiatal hernia then the endoscope was advanced to the stomach which was insufflated with air and inspected in detail including the retroflex view in the cardia. There was minimal mottling and erythema in the antrum but no ulcers or erosions. Pyloric channel did not show any ulcers. Duodenal bulb showed no ulcers, post bulbar area and descending duodenum showed some mottling and erythema consistent with mild duodenitis but there were no ulcers or bleeding. All secretions encountered in the stomach duodenum and esophagus were either clear or bilious in color. No biopsies were indicated. The patient tolerated the procedure well. Plan: The patient was reassured. I discussed with her family. I would consider a capsule endoscopy while she is in the hospital based on her overall condition.
--- NOTE | 2016-09-27 16:41 | PN ---
Patient is seen for followup for end-stage renal disease. She is currently scheduled for EGD. She is lying in bed. She is not in any acute distress. Patient is complaining of pain. On examination, blood pressure cannot be obtained, heart rate about 85 per minute. She is afebrile. HEART: S1 and S2. LUNGS: Bilateral breath sounds are heard. Decreased breath sounds in bases. Abdomen is soft, nontender. Lower extremities show chronic skin changes. Trace edema bilaterally. [employer]IEF is grossly intact. Patient is moving all 4 extremities. Labs show sodium 141. Hemoglobin 7.9. Potassium 4.6. ASSESSMENT: 1. End-stage renal disease on hemodialysis on a Tuesday, Tuesday, Tuesday schedule. Patient is scheduled for hemodialysis today. 2. Anemia with gastrointestinal bleeding scheduled for endoscopy today by Dr. Romero. 3. Mild volume overload. Will dialyze her today with ultrafiltration of about 3 L as tolerated and transfuse packed red blood cells with hemodialysis. PLAN: Hemodialysis today. Transfuse packed RBCs with hemodialysis.
[2016-09-27 17:51] LABS: Glucose,Whole Blood 136 mg/dL (75-99)
[2016-09-27] MEDS ORDERED: GELATIN SPONGE,ABSORB (SMALL) 1 EACH SPONGE ONE (20:00)
--- NOTE | 2016-09-27 20:35 | PN ---
DATE OF SERVICE: 09/27/2016 Prachi Hutchinson is a 65-year-old female, seen, evaluated and examined. Clinically doing well, awake, alert. She is tolerating p.o. well. She is due for dialysis. Hemodynamic status is stable. Blood pressure could not be checked. She remains on supplemental oxygen. The last set of vitals include blood pressure could not be performed because of severe degree of peripheral arterial disease. T-max of 99, saturation 95% on 5 liters oxygen. Current medications reviewed. Laboratory data reviewed as well. Last chest x-ray performed on 09/26/2016 reviewed as well. IMPRESSION: 1. Right-sided pneumonia. 2. Acute on chronic hypoxic respiratory failure related to multifactorial pneumonia as well as chronic renal failure. 3. Gastrointestinal bleed. Patient has intermittent dark stool, GI service is following. Will follow clinical course closely. Further recommendations pending.
[2016-09-27 21:53] LABS: Glucose,Whole Blood 118 mg/dL (75-99)
[2016-09-28] MEDS: HYDROmorphone 1 MG/ML 1 ML SYRINGE IVP PRN ×4 (03:35→18:14)
[2016-09-28 07:08] LABS: Glucose,Whole Blood 157 mg/dL (75-99)
[2016-09-28] MEDS: IPRATROPIUM-ALBUTEROL 3 ML NEB INHALATION SCH ×4 (07:08→20:58)
[2016-09-28] MEDS: INSULIN LISPRO (humaLOG) 300 UNIT/3 ML VIAL SQ SCH ×4 (08:24→22:10)
[2016-09-28] MEDS: ESCITALOPRAM 20 MG TAB PO SCH (08:24)
[2016-09-28] MEDS: PANTOPRAZOLE 40 MG/10 ML VIAL IVP SCH ×2 (08:24→22:09)
[2016-09-28] MEDS: PIPERACILLIN-TAZOBACTAM 3.375 GM in DEXTROSE/WATER 1 50ML.BAG IVPB SCH ×2 (08:25→22:09)
--- NOTE | 2016-09-28 08:26 | P.PN ---
Subjective Principal diagnosis: GI bleed with anemia This is an interim continue progress note on a 65-year-old white female centimeter for GI bleeding. Endoscopy of EGD was negative for any type of overt bleeding. Endoscopy Has Been Suggested by GI. She Is Much More Alert Today. No significant chest pain or shortness of breath stated.. Objective - Vital Signs Vital signs: Vital Signs Temp 99.9 F H 09/28/16 07:00 Pulse 80 09/28/16 07:16 Resp 18 09/28/16 07:00 BP 65/27 09/24/16 12:16 Pulse Ox 97 09/28/16 07:09 Intake & Output 09/27/16 09/28/16 09/28/16 18:59 06:59 18:59 Intake Total 100 1320 Output Total 400 Balance 100 920 Weight 98 kg Intake: IV 50 Oral 50 700 Blood Product 0 620 Rc As-1 Unit 0 310 [id number] Rc As-1 Unit 310 [id number] Output: Stool 400 Other: # Voids 0 0 # Bowel Movements 1 0 - Constitutional General appearance: Present: obese - EENT Eyes: Absent: abnormal pupil - Respiratory Respiratory: bilateral: CTA - Cardiovascular Heart sounds: normal: S1, S2 - Gastrointestinal General gastrointestinal: Present: soft. Absent: tenderness - Integumentary Integumentary: Absent: ulcer - Musculoskeletal Musculoskeletal: Present: generalized weakness - Psychiatric Psychiatric: Present: A&O x's 3 - Labs CBC & Chem 7: 09/27/16 07:01 09/27/16 07:01 Labs: Abnormal Lab Results - Last 24 Hours (Table) 09/27/16 09/27/16 09/27/16 Range/Units 07:01 07:01 12:02 RBC 2.56 L (3.80-5.40) m/uL Hgb 7.9 L (11.4-16.0) gm/dL Hct 25.9 L (34.0-46.0) % MCV 101.3 H (80.0-100.0) fL MCHC 30.5 L (31.0-37.0) g/dL RDW 20.2 H (11.5-15.5) % Plt Count 116 L (150-450) k/uL BUN 61 H (7-17) mg/dL Creatinine 5.40 H* (0.52-1.04) mg/dL Glucose 134 H (74-99) mg/dL POC Glucose (mg/dL) 137 H (75-99) mg/dL Calcium 8.0 L (8.4-10.2) mg/dL Alkaline Phosphatase 144 H (38-126) U/L Total Protein 5.8 L (6.3-8.2) g/dL Albumin 3.0 L (3.5-5.0) g/dL 09/27/16 09/27/16 09/28/16 Range/Units 17:49 21:43 06:55 RBC (3.80-5.40) m/uL Hgb (11.4-16.0) gm/dL Hct (34.0-46.0) % MCV (80.0-100.0) fL MCHC (31.0-37.0) g/dL RDW (11.5-15.5) % Plt Count (150-450) k/uL BUN (7-17) mg/dL Creatinine (0.52-1.04) mg/dL Glucose (74-99) mg/dL POC Glucose (mg/dL) 136 H 118 H 157 H (75-99) mg/dL Calcium (8.4-10.2) mg/dL Alkaline Phosphatase (38-126) U/L Total Protein (6.3-8.2) g/dL Albumin (3.5-5.0) g/dL Assessment and Plan (1) Acute GI bleeding Status: Acute (2) GI hemorrhage Status: Acute (3) Heme positive stool Status: Acute (4) Renal failure (ARF), acute on chronic Status: Acute (5) Congestive heart failure (CHF) Status: Acute (6) High risk for readmission Status: Acute (7) Hx of CABG Status: Acute Plan: GI bleed with status post EGD. Continue to follow closely with CBC. Generalized weakness-most likely return to ECF once stabilized. Endoscopy per GI. Time with Patient: Less than 30
[2016-09-28 10:56] LABS: Anisocytosis Slight; CH 30.2; HCT 33.5 % (34.0-46.0); HGB 10.3 gm/dL (11.4-16.0); Hypochromasia Marked; MCH 31.4 pg (25.0-35.0); MCHC 30.7 g/dL (31.0-37.0); MCV 102.3 fL (80.0-100.0); Macrocytosis Moderate; Poikilocytosis Slight; RBC 3.27 m/uL (3.80-5.40); RDW 19.7 % (11.5-15.5); WBC 6.7 k/uL (3.8-10.6)
[2016-09-28] MEDS: SODIUM CHLORIDE 0.9% 1,000 ML IV SCH (11:07)
[2016-09-28 11:10] LABS: Calcium 8.2 mg/dL (8.4-10.2); Potassium 4.2 mmol/L (3.5-5.1); Total Protein 6.1 g/dL (6.3-8.2)
[2016-09-28 12:21] LABS: Glucose,Whole Blood 384 mg/dL (75-99)
[2016-09-28 14:04] VITALS: BMI 39.5
[2016-09-28 16:50] LABS: Glucose,Whole Blood 270 mg/dL (75-99)
--- NOTE | 2016-09-28 20:35 | PN ---
Patient is seen for follow-up for end-stage renal disease. She has had her endoscopy, which did not reveal any significantly abnormal findings. There is consideration for possible capsule endoscopy to work-up the underlying gastrointestinal bleed. Hemoglobin is currently stable. The patient received packed RBCs yesterday. Today her hemoglobin is at 10.3. Patient was dialyzed yesterday. We had about 2 liters of ultrafiltration. On examination, the patient is comfortable. Blood pressure is not recorded as it has been difficult to record her blood pressures, heart rate staying in about 90 per minute. Examination of the heart S1 and S2. LUNGS: Bilateral breath sounds are heard. ABDOMEN: Soft, morbidly obese. EXTREMITIES: Examination of the lower extremities shows chronic skin changes. No significant edema is noted. Labs show hemoglobin 10.3 g/dL today. Potassium is 4.2. ASSESSMENT: 1. End-stage renal disease on hemodialysis on a Tuesday, Tuesday, Tuesday schedule. Will arrange for hemodialysis tomorrow. 2. Gastrointestinal bleed with no source identified on an EGD. Consideration for capsule endoscopy as outpatient. 3. Generalized debility being considered for ECF/rehab. Plan is hemodialysis in a.m.
[2016-09-28 20:54] LABS: Glucose,Whole Blood 216 mg/dL (75-99)
[2016-09-29] MEDS: HYDROmorphone 1 MG/ML 1 ML SYRINGE IVP PRN ×3 (01:40→17:22)
[2016-09-29] MEDS: HYDROcodone/APAP 10-325MG 1 EACH TAB PO PRN ×3 (06:13→22:41)
[2016-09-29] MEDS: IPRATROPIUM-ALBUTEROL 3 ML NEB INHALATION SCH ×4 (07:00→20:46)
[2016-09-29 07:44] LABS: Glucose,Whole Blood 158 mg/dL (75-99)
--- NOTE | 2016-09-29 08:22 | P.PN ---
Subjective Principal diagnosis: Sadness. This is a history of physical 65-year-old white female essentially admitted for acute GI bleed. Is now stabilizing. She hasn't underlying history of chronic renal failure and history of atrial fibrillation. She states significant sadness for having to be here. She is agreeable to start antidepressant therapy. Otherwise, no new voiding difficulties. Endoscopy Has Been Discussed As a Possibility If She Continues to Bleed. Objective - Vital Signs Vital signs: Vital Signs Temp 101.3 F H 09/29/16 07:00 Pulse 82 09/29/16 07:00 Resp 18 09/29/16 07:00 BP 65/27 09/24/16 12:16 Pulse Ox 92 L 09/29/16 07:00 Intake & Output 09/28/16 09/29/16 09/29/16 18:59 06:59 18:59 Intake Total 200 Output Total 1 Balance 199 Weight 98 kg 99 kg Intake: Oral 200 Output: Stool 1 Other: # Voids 0 # Bowel Movements 1 0 - Constitutional General appearance: Present: obese - EENT Eyes: Absent: abnormal pupil - Neck Neck: Present: other - Respiratory Respiratory: bilateral: CTA - Cardiovascular Rhythm: irregularly irregular - Gastrointestinal General gastrointestinal: Present: soft. Absent: tenderness - Musculoskeletal Musculoskeletal: Present: generalized weakness - Labs CBC & Chem 7: 09/28/16 09:45 09/28/16 09:45 Labs: Abnormal Lab Results - Last 24 Hours (Table) 09/28/16 09/28/16 09/28/16 Range/Units 09:45 09:45 11:54 RBC 3.27 L (3.80-5.40) m/uL Hgb 10.3 L (11.4-16.0) gm/dL Hct 33.5 L (34.0-46.0) % MCV 102.3 H (80.0-100.0) fL MCHC 30.7 L (31.0-37.0) g/dL RDW 19.7 H (11.5-15.5) % Plt Count 95 L (150-450) k/uL Carbon Dioxide 21 L (22-30) mmol/L BUN 37 H (7-17) mg/dL Creatinine 3.99 H (0.52-1.04) mg/dL Glucose 203 H (74-99) mg/dL POC Glucose (mg/dL) 384 H (75-99) mg/dL Calcium 8.2 L (8.4-10.2) mg/dL Alkaline Phosphatase 138 H (38-126) U/L Total Protein 6.1 L (6.3-8.2) g/dL Albumin 3.1 L (3.5-5.0) g/dL 09/28/16 09/28/16 09/29/16 Range/Units 16:41 20:52 07:42 RBC (3.80-5.40) m/uL Hgb (11.4-16.0) gm/dL Hct (34.0-46.0) % MCV (80.0-100.0) fL MCHC (31.0-37.0) g/dL RDW (11.5-15.5) % Plt Count (150-450) k/uL Carbon Dioxide (22-30) mmol/L BUN (7-17) mg/dL Creatinine (0.52-1.04) mg/dL Glucose (74-99) mg/dL POC Glucose (mg/dL) 270 H 216 H 158 H (75-99) mg/dL Calcium (8.4-10.2) mg/dL Alkaline Phosphatase (38-126) U/L Total Protein (6.3-8.2) g/dL Albumin (3.5-5.0) g/dL Assessment and Plan (1) Acute GI bleeding Status: Acute (2) GI hemorrhage Status: Acute (3) Heme positive stool Status: Acute (4) Renal failure (ARF), acute on chronic Status: Acute (5) Congestive heart failure (CHF) Status: Acute (6) High risk for readmission Status: Acute (7) Hx of CABG Status: Acute Plan: We'll go ahead and start antidepressant therapy. Check CBC in the a.m. Dialysis is scheduled for today. Transfer to ECF in the next 24-48 hours if stabilizing. See orders otherwise.
[2016-09-29 08:55] LABS: Anisocytosis Slight; CH 30.5; CHCM 30.8; HCT 33.6 % (34.0-46.0); HDW 3.64; HGB 10.6 gm/dL (11.4-16.0); Hypochromasia Marked; MCH 31.8 pg (25.0-35.0); MCHC 31.6 g/dL (31.0-37.0); MCV 100.4 fL (80.0-100.0); Macrocytosis Moderate; Poikilocytosis Slight; RBC 3.34 m/uL (3.80-5.40); RDW 19.6 % (11.5-15.5); WBC 7.9 k/uL (3.8-10.6)
[2016-09-29 08:58] LABS: Calcium 8.8 mg/dL (8.4-10.2); Potassium 4.3 mmol/L (3.5-5.1); Total Bilirubin 1.1 mg/dL (0.2-1.3); Total Protein 6.4 g/dL (6.3-8.2)
[2016-09-29] MEDS: ESCITALOPRAM 20 MG TAB PO SCH (09:11)
[2016-09-29] MEDS: INSULIN LISPRO (humaLOG) 300 UNIT/3 ML VIAL SQ SCH ×4 (09:11→22:42)
[2016-09-29] MEDS: PANTOPRAZOLE 40 MG/10 ML VIAL IVP SCH ×2 (09:11→22:41)
[2016-09-29 11:53] LABS: Glucose,Whole Blood 165 mg/dL (75-99)
[2016-09-29] MEDS: PIPERACILLIN-TAZOBACTAM 3.375 GM in DEXTROSE/WATER 1 50ML.BAG IVPB SCH ×2 (12:38→22:41)
[2016-09-29] MEDS: SODIUM CHLORIDE 0.9% 1,000 ML IV SCH (12:41)
--- NOTE | 2016-09-29 17:04 | PN ---
DATE OF SERVICE: 09/29/2016 Ms. Prachi Hutchinson is seen, evaluated and examined. This is a 65-year-old female who has problems associated with a spiking fever. Her chest x-ray revealed right-sided pneumonia. She remains on supplemental oxygen on 3L. Sats are 92%. She is getting broad-spectrum antibiotics. Her culture results and reports are not available. HEENT: Unremarkable. NECK: Supple. LUNGS: Bilateral good air entry. Some bronchial breath sounds in the right base. HEART: Regular rate and rhythm. ABDOMEN: Soft. NEUROLOGICAL: Otherwise, awake and alert. IMPRESSION: 1. Right-sided pneumonia. 2. Chronic renal failure on hemodialysis. 3. Gastrointestinal bleed which is stable at this point in time. 4. Sepsis. Plan is to continue broad-spectrum antibiotics. Continue supportive care. Will obtain a followup chest x-ray. Further recommendations pending.
--- NOTE | 2016-09-29 17:23 | PN ---
DATE OF SERVICE: 09/28/2016 Prachi Hutchinson is a 65-year-old with GI bleed and severe anemia, coagulopathy with undetectable blood pressure. Clinically doing well. Patient has been getting hemodialysis as planned. Renal Service is following. Hemodynamic status is stable. Her last set of vitals includes blood pressure that cannot be detected. T-max is 100, saturation of 95% to 97% on 3 L. HEENT: Unremarkable. NECK: Supple. LUNGS: Good air entry bilaterally. HEART: Regular rate, rhythm. ABDOMEN: Soft. NEUROLOGICAL EXAMINATION: Otherwise awake and alert. IMPRESSION: 1. Right-sided pneumonia, sepsis associated with pneumonia. 2. Gastrointestinal bleed, overall stable. 3. Chronic renal failure, on hemodialysis. PLAN AND RECOMMENDATION: Continue antibiotics. Continue supportive care. Pharmacy to adjust the vancomycin. Will follow.
[2016-09-29 18:45] LABS: Glucose,Whole Blood 129 mg/dL (75-99)
[2016-09-29 21:06] LABS: Glucose,Whole Blood 149 mg/dL (75-99)
--- NOTE | 2016-09-30 08:20 | P.PN ---
Subjective Principal diagnosis: GI bleed with anemia. This continue present on a 65-year-old white female essentially admitted for GI bleeding. This is now somewhat resolved clinically. However, she is somewhat more confused and refusing treatments. I had a long discussion with the patient 's morning, she would really like to go home. But I'm concerned about her safety as far as the ability for her to be taking care of in a stable and consistently safe manner given her overall weakness. I have suggested possible physical therapy to get her up, she states she is would have difficulty even walking the halls at this time. She was in the ECF. I will have to have a discussion with her . Otherwise, no stated voiding difficulties. Bowel movement has been stable without bleeding. GI has suggested Endoscopy If Bleeding Doesn't Recur. Objective - Vital Signs Vital signs: Vital Signs Temp 99.3 F 09/29/16 23:00 Pulse 90 09/29/16 23:00 Resp 20 09/29/16 23:00 BP 65/27 09/24/16 12:16 Pulse Ox 100 09/29/16 23:00 Intake & Output 09/29/16 09/30/16 09/30/16 18:59 06:59 18:59 Intake Total 100 Balance 100 Weight 94.5 kg Intake: Intake, IV Titration 100 Amount Sodium Chloride 0.9% 1, 100 000 ml @ 10 mls/hr IV . Q[facility]H [facility] Rx#:[id number] Other: # Voids 0 # Bowel Movements 1 - Constitutional General appearance: Present: obese - EENT Eyes: Absent: abnormal pupil - Respiratory Respiratory: bilateral: CTA - Cardiovascular Rhythm: regular Heart sounds: normal: S1, S2 - Gastrointestinal General gastrointestinal: Present: soft - Integumentary Integumentary: Absent: rash - Labs CBC & Chem 7: 09/29/16 08:08 09/29/16 08:08 Labs: Abnormal Lab Results - Last 24 Hours (Table) 09/29/16 09/29/16 09/29/16 Range/Units 08:08 08:08 11:49 RBC 3.34 L (3.80-5.40) m/uL Hgb 10.6 L (11.4-16.0) gm/dL Hct 33.6 L (34.0-46.0) % MCV 100.4 H (80.0-100.0) fL RDW 19.6 H (11.5-15.5) % Plt Count 103 L (150-450) k/uL BUN 39 H (7-17) mg/dL Creatinine 4.82 H (0.52-1.04) mg/dL Glucose 155 H (74-99) mg/dL POC Glucose (mg/dL) 165 H (75-99) mg/dL Alkaline Phosphatase 156 H (38-126) U/L Albumin 3.3 L (3.5-5.0) g/dL 09/29/16 09/29/16 Range/Units 18:44 21:04 RBC (3.80-5.40) m/uL Hgb (11.4-16.0) gm/dL Hct (34.0-46.0) % MCV (80.0-100.0) fL RDW (11.5-15.5) % Plt Count (150-450) k/uL BUN (7-17) mg/dL Creatinine (0.52-1.04) mg/dL Glucose (74-99) mg/dL POC Glucose (mg/dL) 129 H 149 H (75-99) mg/dL Alkaline Phosphatase (38-126) U/L Albumin (3.5-5.0) g/dL Assessment and Plan (1) Acute GI bleeding Status: Acute (2) GI hemorrhage Status: Acute (3) Heme positive stool Status: Acute (4) Renal failure (ARF), acute on chronic Status: Acute (5) Congestive heart failure (CHF) Status: Acute (6) High risk for readmission Status: Acute (7) Hx of CABG Status: Acute Plan: The patient needs to have appropriate discharge plan for either continued ECF versus home with home health and family helping her. GI bleeding-resolved. Again question need for Endoscopy If Bleeding Continues. Otherwise, Anticipate Discharge in the Next 24 Hours after Discussion with Family. Time with Patient: Greater than 30
[2016-09-30] MEDS: HYDROcodone/APAP 10-325MG 1 EACH TAB PO PRN ×3 (09:25→20:11)
[2016-09-30] MEDS: ESCITALOPRAM 20 MG TAB PO SCH (09:25)
[2016-09-30] MEDS: INSULIN LISPRO (humaLOG) 300 UNIT/3 ML VIAL SQ SCH ×4 (09:26→21:12)
[2016-09-30] MEDS: PANTOPRAZOLE 40 MG/10 ML VIAL IVP SCH ×2 (09:26→21:31)
[2016-09-30] MEDS: PIPERACILLIN-TAZOBACTAM 3.375 GM in DEXTROSE/WATER 1 50ML.BAG IVPB SCH ×2 (09:26→21:32)
--- NOTE | 2016-09-30 10:14 | PN ---
Prachi Hutchinson is a 65-year-old with severe anemia, gastrointestinal bleed. Patient has right-sided pneumonia as well. Somewhat anxious, agitated, declined the chest x-ray today. Fever pattern; however, has broken down. Patient is currently afebrile. Her last set of vitals reviewed. Heart rate is 90, temperature 99.3, saturation 100% on 3 L oxygen. HEENT EXAMINATION: Otherwise unremarkable. NECK: Supple. Neck veins are prominent. No bruits present. LUNGS: Bilateral improved air entry, some bronchial breath sounds and crackles in the right base cannot be excluded. HEART: Regular rate and rhythm. S1 and S2 audible. ABDOMEN: Soft. No rebound or rigidity. EXTREMITIES: +1 peripheral pulses. NEUROLOGICAL EXAMINATION: Awake and alert. Labs has been refused by the patient today, so has the x-ray. IMPRESSION: 1. Sepsis associated with right-sided pneumonia. 2. Small bilateral pleural effusion, more so on the right side compared to the left side, likely related to multifactorial process, including renal failure. 3. Gastrointestinal bleed with a stable hemoglobin now, has been up to 10.6 yesterday. 4. Renal failure, acute on chronic. Patient has been on hemodialysis. PLAN AND RECOMMENDATION: As above. Continue antibiotics, supportive care. Follow clinical course closely. Will review the x-ray once performed.
--- NOTE | 2016-09-30 10:22 | XR ---
EXAMINATION TYPE: XR chest 1V portable DATE OF EXAM: 09/30/2016 10:15 AM CLINICAL HISTORY: Difficulty breathing progress study. TECHNIQUE: Single AP portable upright view of the chest is obtained. COMPARISON: Chest x-ray from September 26, 2016 FINDINGS: Post CABG changes with mediastinal clips and sternal wires is redemonstrated. There is pers isting cardiomegaly with ectatic and atherosclerotic thoracic aorta. There is small right pleural eff usion. Chronic thickening right paratracheal stripe is redemonstrated. There is diffuse bilateral kenzie ma and/or infiltrates and central vascular congestion. No pneumothorax is seen bilaterally. IMPRESSION: Cardiomegaly with small right pleural effusion and diffuse right lung edema and/or infilt rates redemonstrated, there is increasing central vascular congestion best identified left hilar juan jose on noted. Consider CHF exacerbation.
[2016-09-30] MEDS: IPRATROPIUM-ALBUTEROL 3 ML NEB INHALATION SCH ×4 (11:24→21:37)
[2016-09-30 12:11] LABS: Glucose,Whole Blood 172 mg/dL (75-99)
[2016-09-30] MEDS: SODIUM CHLORIDE 0.9% 1,000 ML IV SCH (13:23)
[2016-09-30] MEDS ORDERED: DARBEPOETIN ALFA 40 MCG/0.4 ML SYRINGE SQ SCH (13:30)
--- NOTE | 2016-09-30 13:30 | P.PN ---
Subjective Patient is seen in follow-up for end-stage renal disease. She is maintained on hemodialysis on a Tuesday schedule. Patient presented with anemia and received packed red blood cell transfusion this admission. Hemoglobin is stable today. Denies chest pain or shortness of breath. Appetite is good. Vital signs are stable. General: The patient appeared well nourished and normally developed. HEENT: Head exam is unremarkable. Neck is without jugular venous distension. LUNGS: Lungs are clear to auscultation and percussion. Breath sounds decreased. HEART: Rate and Rhythm are regular. First and second heart sounds normal. No murmurs, rubs or gallops. ABDOMEN: Abdominal exam reveals normal bowel sounds. Non-tender and non- distended. No evidence of peritonitis. EXTREMITITES: No clubbing, cyanosis, or edema. Objective - Vital Signs Vital signs: Vital Signs Temp 99.3 F 09/29/16 23:00 Pulse 92 09/30/16 11:40 Resp 20 09/29/16 23:00 BP 65/27 09/24/16 12:16 Pulse Ox 100 09/29/16 23:00 Intake & Output 09/29/16 09/30/16 09/30/16 18:59 06:59 18:59 Intake Total 100 Balance 100 Weight 94.5 kg Intake: Intake, IV Titration 100 Amount Sodium Chloride 0.9% 1, 100 000 ml @ 10 mls/hr IV . Q24H [facility] Rx#:[id number] Other: # Voids 0 # Bowel Movements 1 - Labs CBC & Chem 7: 09/29/16 08:08 09/29/16 08:08 Labs: Abnormal Lab Results - Last 24 Hours (Table) 09/29/16 09/29/16 09/30/16 Range/Units 18:44 21:04 12:08 POC Glucose (mg/dL) 129 H 149 H 172 H (75-99) mg/dL Assessment and Plan Plan: Assessment: #1. End-stage renal disease maintained on hemodialysis on a Tuesday schedule. #2. Anemia status post packed red blood cell his fusion. No evidence of acute GI bleed noted on EGD. #3. Generalized debility. #4. Chronic kidney disease mineral bone disease. Plan: Hemodialysis tomorrow morning with goal 3 L ultra filtration. Start Aranesp. Gastroenterology following. May require capsule endoscopy. Stable to be discharged to ECF from nephrology standpoint.
[2016-09-30] MEDS: ALPRAZolam 0.5 MG TAB PO PRN (13:56)
[2016-09-30 14:22] LABS: Anisocytosis Slight; CH 30.4; CHCM 30.5; HDW 3.53; HGB 10.3 gm/dL (11.4-16.0); Hypochromasia Marked; MCH 31.7 pg (25.0-35.0); MCHC 31.4 g/dL (31.0-37.0); MCV 101.1 fL (80.0-100.0); Macrocytosis Moderate; Mean Platelet Volume 11.4; Poikilocytosis Slight; RBC 3.26 m/uL (3.80-5.40); RDW 19.4 % (11.5-15.5); WBC 6.2 k/uL (3.8-10.6)
--- NOTE | 2016-09-30 16:43 | CDI ---
In responding to this query, please exercise your independent professional judgment. The [facility] Coding Staff and Clinical Documentation Specialists appreciate your assistance in clarifying documentation, maintaining compliance with coding guidelines, accurately documenting patients condition and capturing severity of illness. The fact that a question is asked does not imply that any particular answer is desired or expected. Communication forms are a method of clarifying documentation and are not made part of the Legal Health Record. Thank you in advance for your clarification. Last Revision, October 2015 Josey [place] [address] [place] [address] Documentation Clarification Form Date: 09/30/2016 4:27:00 PM From: Zoey Lopez CCS, CCDS Admit Date: 09/24/2016 12:15:00 PM Patient Name: Prachi Hutchinson Visit Number: [id number] Discharge Date: Dr. Nishant Garcia: CHF is documented in the throughout the documentation as acute and in the patient's history. Please clarify the status of the patient's CHF: acute, chronic or a history only , the patient does not have diuretics listed as a home med, no diuretics received this admission. History/Risk Factors: Hypertension, [place], IDDM, ESRD on Hemodialysis, CAD, CVA, Asthma, Cardiac Valve replacement, CABG, Heart Catheterization, Pacemaker and Former smoker. Clinical Indicators: VS: HR 103 - 80s - 90s; R 18-24; PO Low 90s on 2-5Lnc. LAB: Troponin 0.070 x1, BUN 27, Cr 2.90 RAD: 2 CXR: Cardiomegaly with small - moderate sized right pleural effusion & diffuse right lung edema. EKG: R 100 ventricular paced rhythm Treatment: Hemodialysis, O2, IV antibiotics, Insulin Consults: Nephrology, Pulmonary, GI In your professional opinion, can you please clarify the acuity and type of CHF if known? Acute Chronic Acute on Chronic AND Systolic Diastolic Systolic and Diastolic Cor Pulmonale (Right Sided HF w/ Pulmonary HTN) Unable to determine Other, please specify If known, please specify if Heart Failure is due to: Hypertension Rheumatic Fever Please document in your progress notes and discharge summary in order to capture severity of illness and risk of mortality. Include clinical findings that support your diagnosis. FYI: Press F11 to launch patient chart. Place X here if this finding has no clinical significance, is not applicable or if you are not able to provide any additional documentation. Thank You. MTDD
[2016-09-30 16:56] LABS: Glucose,Whole Blood 194 mg/dL (75-99)
[2016-09-30] MEDS: FOLIC ACID-VIT B COMPLEX-VIT C 1 CAP PO SCH (18:28)
[2016-09-30 20:34] LABS: Glucose,Whole Blood 188 mg/dL (75-99)
[2016-10-01 07:42] LABS: Glucose,Whole Blood 140 mg/dL (75-99)
[2016-10-01 07:51] VITALS: PULSE 83; RESP 20; TEMP 98.4
[2016-10-01] MEDS: IPRATROPIUM-ALBUTEROL 3 ML NEB INHALATION SCH ×2 (08:02→12:20)
[2016-10-01] MEDS: INSULIN LISPRO (humaLOG) 300 UNIT/3 ML VIAL SQ SCH ×2 (08:14→12:41)
[2016-10-01] MEDS: ESCITALOPRAM 20 MG TAB PO SCH (08:15)
[2016-10-01] MEDS: PANTOPRAZOLE 40 MG/10 ML VIAL IVP SCH (08:15)
[2016-10-01] MEDS: FOLIC ACID-VIT B COMPLEX-VIT C 1 CAP PO SCH (08:16)
[2016-10-01] MEDS: HYDROcodone/APAP 10-325MG 1 EACH TAB PO PRN (08:21)
[2016-10-01] MEDS: PIPERACILLIN-TAZOBACTAM 3.375 GM in DEXTROSE/WATER 1 50ML.BAG IVPB SCH (08:21)
--- NOTE | 2016-10-01 08:50 | P.DS ---
Providers Date of admission: 09/24/16 12:15 Attending physician: Nishant Garcia Primary care physician: Nishant Garcia - Discharge Diagnosis(es) (1) Acute GI bleeding Current Visit: Yes Status: Acute (2) GI hemorrhage Current Visit: Yes Status: Acute (3) Heme positive stool Current Visit: Yes Status: Acute (4) Renal failure (ARF), acute on chronic Current Visit: Yes Status: Acute (5) Congestive heart failure (CHF) Current Visit: No Status: Acute (6) High risk for readmission Current Visit: No Status: Acute (7) Hx of CABG Current Visit: No Status: Acute Hospital Course: This discharge summary on a 65-year-old white female essentially with end-stage renal disease who was recently discharged and had acute GI bleed. EGD and colonoscopy did not show any type of significant bleeding. She will be scheduled for Endoscopy If CBC Continues to Drop. No Significant New Complaints except for Immobility. She Will Be Transferred to [facility] for Rehab at This Time. Prognosis Is Guarded Secondary to Multiple Comorbidities. But She Is Discharged in Stable Condition without Any Overt Bleeding at This Time. Patient Condition at Discharge: Stable Plan - Discharge Summary New Discharge Prescriptions: RX: HYDROcodone/APAP 10-325MG [[place] 10-325] 1 each PO Q4H PRN #150 tab PRN Reason: Pain Discharge Medication List RX: Cinacalcet HCl [Sensipar] 30 mg PO DAILY@169904/07/14 [History] RX: HYDROcodone/APAP 10-325MG [[place] 10-325] 1 tab PO Q6H PRN 04/07/14 [History] RX: Montelukast [Singulair] 10 mg PO HS@209904/07/14 [History] RX: Simvastatin [Zocor] 40 mg PO HS@209908/18/15 [History] RX: Cinacalcet HCl [Sensipar] 90 mg PO DAILY@169904/02/16 [History] RX: Escitalopram [Lexapro] 40 mg PO DAILY@79904/02/16 [History] RX: rOPINIRole HCL [Ropinirole HCl] 2 mg PO HS@209904/02/16 [History] RX: Cevimeline HCl 30 mg PO DAILY@0800 05/28/16 [History] RX: Insulin Aspart [NovoLOG] See Protocol SQ ACHS 05/28/16 [History] RX: Calcium Acetate [PhosLo] 667 mg PO TID@0800,1200,1700 09/17/16 [History] RX: Clopidogrel Bisulfate [Plavix] 75 mg PO DAILY@0800 09/17/16 [History] RX: Docusate [Colace] 100 mg PO BID@0800,1700 09/17/16 [History] RX: Midodrine HCl [ProAmatine] 7.5 mg PO MOWEFR PRN 09/17/16 [History] RX: Bisacodyl [Dulcolax] 10 mg RECTAL DAILY PRN 09/24/16 [History] RX: Folic Acid-Vit B Complex-Vit C [Nephrocaps] 1 cap PO DAILY@1700 09/24/16 [ History] RX: Magnesium Hydroxide [Milk of Magnesia] 2,400 mg PO DAILY PRN 09/24/16 [ History] RX: Na Phos,M-B/Na Phos,Di-Ba [Fleet Adult] 133 ml RECTAL ONCE PRN 09/24/16 [ History] RX: Nepro 1 can PO BID@0800,1700 09/24/16 [History] RX: Pantoprazole Sodium [Protonix] 40 mg PO DAILY@0800 09/24/16 [History] RX: ALPRAZolam [Xanax] 0.5 mg PO TID PRN #90 tab 10/01/16 [Rx] RX: Darbepoetin Matheus [Aranesp] 40 mcg SQ Q7D syringe 10/01/16 [Rx] RX: HYDROcodone/APAP 10-325MG [[place] 10-325] 1 each PO Q4H PRN #150 tab [Rx] RX: Ipratropium-Albuterol Nebulize [Duoneb 0.5 mg-3 mg/3 ml Soln] 3 ml INHALATION RT-QID ampul.neb 10/01/16 [Rx] Follow up Appointment(s)/Referral(s): Sara Nj MD [STAFF PHYSICIAN] - 1-2 days Deyvi Chung MD [STAFF PHYSICIAN] - 1 Week Patient Instructions/Handouts: Anemia (DC) Activity/Diet/Wound Care/Special Instructions: [place] on discharge. Cardiac, diabetic diet. Diabetic folder given. CHF folder given. Discharge Disposition: TRANSFER TO SNF/ECF
[2016-10-01 09:42] LABS: Calcium 8.6 mg/dL (8.4-10.2)
[2016-10-01 12:26] LABS: Glucose,Whole Blood 173 mg/dL (75-99)
[2016-10-01] MEDS: SODIUM CHLORIDE 0.9% 1,000 ML IV SCH (12:37)
[2016-10-01] MEDS ORDERED: GELATIN SPONGE,ABSORB (SMALL) 1 EACH SPONGE ONE (13:45)
--- NOTE | 2016-10-01 15:00 | PN ---
Patient is seen for followup for end-stage renal disease. She was admitted to the hospital with GI bleed. Endoscopy and colonoscopy did not reveal any evidence of obvious bleeding and etiology. Patient has been transfused packed RBCs. She is currently seen on hemodialysis, tolerating her treatment well. She is scheduled for discharge today. Last hemoglobin was 10.3 g/dL yesterday. On examination, blood pressure has not been able to be recorded. Heart rate 83 per minute. She is afebrile. EXAMINATION OF THE HEART: S1, S2. EXAMINATION OF THE LUNGS: Bilateral breath sounds are heard. ABDOMEN: Soft, obese. Examination of lower extremities shows no significant edema. Chronic skin changes are noted. Labs show potassium of 4.0. ASSESSMENT: 1. End-stage renal disease, on hemodialysis on a Tuesday, Tuesday, Tuesday schedule. 2. Gastrointestinal bleed with no obvious source identified on EGD and colonoscopy. Patient is being considered for capsule endoscopy. 3. Anemia of chronic disease. 4. Chronic kidney disease bone mineral disorder. PLAN: Patient is stable for discharge post dialysis. She should follow up as outpatient for her regular treatment on Tuesday.
--- NOTE | 2016-10-01 15:58 | PN ---
Patient seen, evaluated, examined. This patient is a 65-year-old female with problems associated with GI bleed, chronic hypertension as well as peripheral arterial disease. Patient has chronic renal failure, GI bleed as well. Clinically patient is doing well, awake and alert. Fever pattern has improved. Patient is being treated with broad-spectrum antibiotics for right-sided pneumonia. Hemodynamic status is stable, except that blood pressure cannot be detected. HEENT: Unremarkable. NECK: Supple. LUNGS: Good air entry bilaterally. HEART: Regular rate, rhythm. ABDOMEN: Soft. NEUROLOGICAL EXAMINATION: Otherwise awake and alert. Labs reviewed. Medications reviewed as well. IMPRESSION: 1. Right-sided pneumonia. 2. Acute hypoxic respiratory failure. 3. Severe sepsis associated with pneumonia. 4. Chronic renal failure. 5. Gastrointestinal bleed. 6. Peripheral arterial disease. Plan is to continue supportive care. Follow clinical course closely. Increase activity as tolerated. Continue antibiotics. Will follow.
[2016-10-02] MEDS ORDERED: VANCOMYCIN 1,000 MG in SODIUM CHLORIDE 0.9% 250 ML IVPB ONE (06:00)
--- NOTE | 2016-10-05 09:17 | CDI ---
Date: 10/05/2016 9:02:00 AM From: Gianna Seymour Phone: Admit Date: 09/24/2016 12:15:00 PM Patient Name: Prachi Hutchinson Visit Number: [id number] Discharge Date: Dr. Nishant Garcia The patient presented with GI bleed and pneumonia. Sepsis is documented on progress notes dated 09/29, 09/30 and 10/01, but not on the discharge summary. Definition of Present on Admission (POA): A diagnosis present at the time the order for admission to inpatient status was written. For each diagnosis, documentation must be clear to determine if the condition was present at the time of the patients inpatient admission or developed during the hospital stay. Please clarify in progress notes and discharge summary as to whether sepsis was: ? Y = Yes, the condition was present at the time of the order for inpatient admission. ? N = No, the condition was not present at the time of the order for inpatient admission. ? W = clinically undetermined if the condition was present at the time of the order for inpatient admission. Please continue to document in your progress notes and discharge summary in order to capture severity of illness and risk of mortality. Include clinical findings that support your diagnosis. MTDD
--- NOTE | 2016-11-14 21:35 | P.HPIM ---
History of Present Illness H&P Date: 09/24/16 Chief Complaint: GI bleed. This is a history and physical on a 65-year-old white female who was recently discharged after having generalized weakness and hypotension. Chronic renal failure was felt to be an issue with her hypotension. She was stabilized and discharged. She comes back to the hospital secondary to upper GI bleeding with hematemesis and tarry-type stool. Low hemoglobin is noted with vomiting. Review of Systems Constitutional: Reports weakness Eyes: denies blurred vision, denies pain Ears, nose, mouth and throat: Denies headache, Denies sore throat Gastrointestinal: Reports coffee ground emesis, Reports vomiting Genitourinary: Denies dysuria, Denies hematuria Musculoskeletal: Denies myalgias Past Medical History Past Medical History: Asthma, Coronary Artery Disease (CAD), Chest Pain / Angina , Heart Failure, CVA/TIA, Diabetes Mellitus, Dialysis, Hyperlipidemia, Myocardial Infarction ([place]), Renal Disease Additional Past Medical History / Comment(s): Pt recently admitted 09/17/16 with anemia/CHF/hypotension/chronic renal failure. Other HX: End stage kidney failure, on dialysis //Tue; chronic anemia, lower GI bleed d/t colorectal polyps, scoliosis right hip; cva in 2010 - no residual other than eyes tear frequently; aortic stenosis with surgery then calcified and replaced again, left eye macular degeneration. Hypotension with systolic blood pressures normally running below 90 and diastolic pressure below 60. Last Myocardial Infarction Date:: 02/2013 History of Any Multi-Drug Resistant Organisms: MRSA Date of last positivie culture/infection: 2009 MDRO Source:: Wound-not specified with MRSA & MDRO Acinetobacter Past Surgical History: Adenoidectomy, AICD, Cardiac Valve Replacement, Section, Coronary Bypass/CABG, Heart Catheterization, Orthopedic Surgery, Pacemaker, Tonsillectomy Additional Past Surgical History / Comment(s): 05/30/16 EGD/colonoscopy with polypectomy, cabg sep 2009 x 6 vessels; AV replaced jun 2011 and 2012, arthroscopies bhavya knees, AVF bilateral arms, AICD/pacer 05/2014 Past Anesthesia/Blood Transfusion Reactions: No Reported Reaction Type of Cardiac Device: Permanent Pacemaker, AICD Device Placement Date:: 06/04 Past Psychological History: No Psychological Hx Reported Additional Psychological History / Comment(s): Pt just admitted to [facility] . She is an extensive assist to wheelchair. She goes to hemodialysis on TUE/ TUE/TUE. Smoking Status: Former smoker Past Alcohol Use History: Rare Additional Past Alcohol Use History / Comment(s): "couple sips of beer throughout the year" started smoking at age 14 smoked 1 ppd, quit in 1981 Past Drug Use History: None Reported - Past Family History Father Family Medical History: Congestive Heart Failure (CHF), Diabetes Mellitus Mother Family Medical History: Diabetes Mellitus Additional Family Medical History / Comment(s): blocked carotids; kidney failure Sister(s) Family Medical History: Cancer Medications and Allergies Home Medications Medication Instructions Recorded Confirmed Type ALPRAZolam [Xanax] 0.5 mg PO TID PRN 04/07/14 09/24/16 History Cinacalcet HCl [Sensipar] 30 mg PO DAILY@169904/07/14 09/24/16 History HYDROcodone/APAP 10-325MG [[place] 1 tab PO Q6H PRN 04/07/14 09/24/16 History 10-325] Montelukast [Singulair] 10 mg PO HS@209904/07/14 09/24/16 History Simvastatin [Zocor] 40 mg PO HS@209908/18/15 09/24/16 History Cinacalcet HCl [Sensipar] 90 mg PO DAILY@169904/02/16 09/24/16 History Escitalopram [Lexapro] 40 mg PO DAILY@0800 04/02/16 09/24/16 History rOPINIRole HCL [Ropinirole HCl] 2 mg PO HS@209904/02/16 09/24/16 History Cevimeline HCl 30 mg PO DAILY@0800 05/28/16 09/24/16 History Insulin Aspart [NovoLOG] See Protocol SQ ACHS 05/28/16 09/24/16 History Calcium Acetate [PhosLo] 667 mg PO TID@0800,1200,1700 09/17/16 09/24/16 History Clopidogrel Bisulfate [Plavix] 75 mg PO DAILY@0800 09/17/16 09/24/16 History Docusate [Colace] 100 mg PO BID@0800,1700 09/17/16 09/24/16 History Midodrine HCl [ProAmatine] 7.5 mg PO MOWEFR PRN 09/17/16 09/24/16 History Bisacodyl [Dulcolax] 10 mg RECTAL DAILY PRN 09/24/16 09/24/16 History Folic Acid-Vit B Complex-Vit C 1 cap PO DAILY@1700 09/24/16 09/24/16 History [Nephrocaps] Magnesium Hydroxide [Milk of 2,400 mg PO DAILY PRN 09/24/16 09/24/16 History Magnesia] Na Phos,M-B/Na Phos,Di-Ba [Fleet 133 ml RECTAL ONCE PRN 09/24/16 09/24/16 History Adult] Nepro 1 can PO BID@0800,1700 09/24/16 09/24/16 History Pantoprazole Sodium [Protonix] 40 mg PO DAILY@0800 09/24/16 09/24/16 History Allergies Allergy/AdvReac Type Severity Reaction Status Date / Time adhesive Allergy Rash/Hives Verified 09/24/16 10:39 Sulfa (Sulfonamide Allergy Rash/Hives Verified 09/24/16 10:39 Antibiotics) sulfacetamide sodium Allergy Unknown Verified 09/24/16 10:39 [From Sulfamide] Physical Exam Vitals: Vital Signs Temp Pulse Resp BP Pulse Ox 09/24/16 16:02 99 F 88 18 96 09/24/16 15:06 98.2 F 85 18 94 L 09/24/16 14:36 97.8 F 88 18 98 09/24/16 14:06 98.2 F 90 18 96 09/24/16 13:56 97 F L 87 18 94 L 09/24/16 12:44 97.6 F 88 16 09/24/16 12:28 97.8 F 86 18 09/24/16 12:18 97.5 F L 85 18 09/24/16 12:16 97.5 F L 91 18 Intake and Output 09/24/16 09/24/16 09/24/16 06:59 14:59 22:59 Intake Total 310 310 Balance 310 310 Intake: Blood Product 310 310 Rc As-1 Unit 310 [id number] Rc As-1 Unit 0 310 [id number] - Constitutional General appearance: obese - EENT Eyes: EOMI - Neck Neck: no lymphadenopathy - Respiratory Respiratory: bilateral: CTA - Cardiovascular Rhythm: regular Heart sounds: normal: S1, S2 - Gastrointestinal General gastrointestinal: soft, tenderness - Neurologic Neurologic: CNII-XII intact - Musculoskeletal Musculoskeletal: generalized weakness Results CBC & Chem 7: 09/24/16 10:23 09/24/16 10:23 Thrombosis Risk Factor Assmnt - Choose All That Apply Any of the Below Risk Factors Present?: Yes Each Factor Represents 1 point: Medical pt on bed rest, Obesity (BMI >25) Other Risk Factors: Yes Each Risk Factor Represents 2 Points: Age 61-74 years, Patient confined to bed Other congenital or acquired thrombophilia - If yes, enter type in comment: No Thrombosis Risk Factor Assessment Total Risk Factor Score: 6 Thrombosis Risk Factor Assessment Level: High Risk Assessment and Plan (1) Acute GI bleeding Status: Acute (2) GI hemorrhage Status: Acute (3) Heme positive stool Status: Acute (4) Renal failure (ARF), acute on chronic Status: Acute (5) Congestive heart failure (CHF) Status: Acute (6) High risk for readmission Status: Acute (7) Hx of CABG Status: Acute Plan: We'll go ahead and transfuse. Consult bag machine adjuster. Gastroenterology is consulted as is nephrology. Check serial CBCs. Anticipate need for transfusion of PRBC if necessary. Dr. Overton will be covering in the a.m. Prognosis is guarded secondary to multiple comorbidities. Time with Patient: Greater than 30
== END 2016-10-01 14:11 | DRG 871 ==
LOC: EC 10:11 → 6ICU 12:15 → 4MS4W 09-26 18:14
PROVIDERS: ADMIT Family Medicine; ATTEND Family Medicine
PROC: 30233N1 Transfusion of Nonautologous Red Blood Cells into Peripheral Vein, Percutaneous Approach (ICD-10-PCS; 2016-09-24)
PROC: 5A1D60Z (ICD-10-PCS; 2016-09-27)
PROC: 0DJ08ZZ Inspection of Upper Intestinal Tract, Via Natural or Artificial Opening Endoscopic (ICD-10-PCS; principal; 2016-09-27 10:00)
DX: A41.9 Sepsis, unspecified organism (principal); J96.21 Acute and chronic respiratory failure with hypoxia; N17.9 Acute kidney failure, unspecified; I13.2 Hypertensive heart and chronic kidney disease with heart failure and with stage 5 chronic kidney disease, or end stage renal disease; N18.6 End stage renal disease; J18.9 Pneumonia, unspecified organism; D68.9 Coagulation defect, unspecified; E44.0 Moderate protein-calorie malnutrition; J44.0 Chronic obstructive pulmonary disease with (acute) lower respiratory infection; K92.2 Gastrointestinal hemorrhage, unspecified; D62 Acute posthemorrhagic anemia; R65.20 Severe sepsis without septic shock; E11.22 Type 2 diabetes mellitus with diabetic chronic kidney disease; D69.6 Thrombocytopenia, unspecified; M41.9 Scoliosis, unspecified; K44.9 Diaphragmatic hernia without obstruction or gangrene; M19.90 Unspecified osteoarthritis, unspecified site; D63.1 Anemia in chronic kidney disease; E78.5 Hyperlipidemia, unspecified; E83.51 Hypocalcemia; E86.0 Dehydration; E86.1 Hypovolemia; F41.9 Anxiety disorder, unspecified; H35.30 Unspecified macular degeneration; I25.10 Atherosclerotic heart disease of native coronary artery without angina pectoris; I25.2 Old myocardial infarction; I50.9 Heart failure, unspecified; Z99.2 Dependence on renal dialysis; I73.9 Peripheral vascular disease, unspecified; J45.909 Unspecified asthma, uncomplicated; Z86.73 Personal history of transient ischemic attack (TIA), and cerebral infarction without residual deficits; Z87.891 Personal history of nicotine dependence; Z86.14 Personal history of Methicillin resistant Staphylococcus aureus infection; Z95.0 Presence of cardiac pacemaker; Z95.1 Presence of aortocoronary bypass graft; Z86.010 Personal history of colon polyps; Z82.49 Family history of ischemic heart disease and other diseases of the circulatory system; Z79.02 Long term (current) use of antithrombotics/antiplatelets; Z79.4 Long term (current) use of insulin; Z95.2 Presence of prosthetic heart valve; Z95.5 Presence of coronary angioplasty implant and graft; Z95.810 Presence of automatic (implantable) cardiac defibrillator; Z79.899 Other long term (current) drug therapy
CPT/HCPCS: 36415; 43235; 71010; 80048; 80053; 80202; 82550; 82553; 83036; 83690; 83735; 84100; 84484; 85025; 85027; 85610; 85730; 86850; 86900; 86901; 86920; 90935; 93005; 94640; 94760; 96361; 96374; 96375; 99153; 99291

== ENCOUNTER 2016-10-02 14:03 | Inpatient (IN) | payer MEDICARE, BC ==
[2016-10-02] MEDS ORDERED: PANTOPRAZOLE 40 MG/10 ML VIAL IVP STA (14:47)
[2016-10-02] MEDS ORDERED: SODIUM CHLORIDE 0.9% 1,000 ML IV STA (14:47)
[2016-10-02] MEDS ORDERED: LORazepam 2 MG/ML SYRINGE IV STA ×2 (15:06→20:56)
--- NOTE | 2016-10-02 15:06 | ED ---
GI Bleed HPI - General Chief complaint: GI Bleed Stated complaint: GI Bleed Time Seen by Provider: 10/02/16 14:20 Source: patient, family, EMS, RN notes reviewed, old records reviewed Mode of arrival: EMS Limitations: altered mental status - History of Present Illness Initial comments: This is a 65-year-old female who was just discharged apparently yesterday back to senior care after being treated for GI bleeding who is back today with burgundy-colored stools some lower abdominal pain and she does feel very anxious she states. She denies any chest pain or shortness of breath or dizziness. Also per reports she does have a pressure sore on her coccyx. MD complaint: gross hematochezia - Related Data Home Medications Medication Instructions Recorded Confirmed Cinacalcet HCl [Sensipar] 30 mg PO DAILY@169904/07/14 10/02/16 Montelukast [Singulair] 10 mg PO HS@209904/07/14 10/02/16 Simvastatin [Zocor] 40 mg PO HS@209908/18/15 10/02/16 Cinacalcet HCl [Sensipar] 90 mg PO DAILY@169904/02/16 10/02/16 Escitalopram [Lexapro] 40 mg PO DAILY@0804/02/16 10/02/16 rOPINIRole HCL [Ropinirole HCl] 2 mg PO HS@209904/02/16 10/02/16 Cevimeline HCl 30 mg PO DAILY@0800 05/28/16 10/02/16 Insulin Aspart [NovoLOG] See Protocol SQ ACHS 05/28/16 10/02/16 Calcium Acetate [PhosLo] 667 mg PO TID@0800,1200,1700 09/17/16 10/02/16 Clopidogrel Bisulfate [Plavix] 75 mg PO DAILY@0800 09/17/16 10/02/16 Docusate [Colace] 100 mg PO BID@0800,1700 09/17/16 10/02/16 Bisacodyl [Dulcolax] 10 mg RECTAL DAILY PRN 09/24/16 10/02/16 Folic Acid-Vit B Complex-Vit C 1 cap PO DAILY@1700 09/24/16 10/02/16 [Nephrocaps] Magnesium Hydroxide [Milk of 2,400 mg PO DAILY PRN 09/24/16 10/02/16 Magnesia] Na Phos,M-B/Na Phos,Di-Ba [Fleet 133 ml RECTAL ONCE PRN 09/24/16 10/02/16 Adult] Nepro 1 can PO BID@0800,1700 09/24/16 10/02/16 Pantoprazole Sodium [Protonix] 40 mg PO DAILY@0800 09/24/16 10/02/16 HYDROcodone/APAP 10-325MG [[place] 1 tab PO Q4H PRN 10/02/16 10/02/16 10-325] Previous Rx's Medication Instructions Recorded ALPRAZolam [Xanax] 0.5 mg PO TID PRN #90 tab 10/01/16 Ipratropium-Albuterol Nebulize 3 ml INHALATION RT-QID ampul.neb 10/01/16 [Duoneb 0.5 mg-3 mg/3 ml Soln] Allergies Allergy/AdvReac Type Severity Reaction Status Date / Time adhesive Allergy Rash/Hives Verified 10/02/16 15:02 Sulfa (Sulfonamide Allergy Rash/Hives Verified 10/02/16 15:02 Antibiotics) sulfacetamide sodium Allergy Unknown Verified 10/02/16 15:02 [From Sulfamide] Review of Systems ROS Statement: Those systems with pertinent positive or pertinent negative responses have been documented in the HPI. ROS Other: All systems not noted in ROS Statement are negative. Past Medical History Past Medical History: Asthma, Coronary Artery Disease (CAD), Chest Pain / Angina , Heart Failure, CVA/TIA, Diabetes Mellitus, Dialysis, Hyperlipidemia, Myocardial Infarction (OR), Renal Disease Additional Past Medical History / Comment(s): Pt recently admitted 09/17/16 with anemia/CHF/hypotension/chronic renal failure. Other HX: End stage kidney failure, on dialysis M/W/Tue; chronic anemia, lower GI bleed d/t colorectal polyps, scoliosis right hip; cva in 2010 - no residual other than eyes tear frequently; aortic stenosis with surgery then calcified and replaced again, left eye macular degeneration. Hypotension with systolic blood pressures normally running below 90 and diastolic pressure below 60. Last Myocardial Infarction Date:: 02/2013 History of Any Multi-Drug Resistant Organisms: MRSA, Other MDRO Date of last positivie culture/infection: 11/05/09 MDRO Source:: Unknown Past Surgical History: Adenoidectomy, AICD, Cardiac Valve Replacement, Section, Coronary Bypass/CABG, Heart Catheterization, Orthopedic Surgery, Pacemaker, Tonsillectomy Additional Past Surgical History / Comment(s): 05/30/16 EGD/colonoscopy with polypectomy, cabg sep 2009 x 6 vessels; AV replaced jun 2011 and 2012, arthroscopies bhavya knees, AVF bilateral arms, AICD/pacer 05/2014 Past Anesthesia/Blood Transfusion Reactions: No Reported Reaction Type of Cardiac Device: Permanent Pacemaker, AICD Device Placement Date:: 06/04 Past Psychological History: No Psychological Hx Reported Additional Psychological History / Comment(s): Pt just admitted to [facility] . She is an extensive assist to wheelchair. She goes to hemodialysis on TUE/ TUE/TUE. Smoking Status: Former smoker Past Alcohol Use History: Rare Additional Past Alcohol Use History / Comment(s): "couple sips of beer throughout the year" started smoking at age 14 smoked 1 ppd, quit in 1981 Past Drug Use History: None Reported - Past Family History Father Family Medical History: Congestive Heart Failure (CHF), Diabetes Mellitus Mother Family Medical History: Diabetes Mellitus Additional Family Medical History / Comment(s): blocked carotids; kidney failure Sister(s) Family Medical History: Cancer General Exam - General Exam Comments Initial Comments: This is a well-developed well-nourished awake alert anxious appearing female Limitations: physical limitation General appearance: alert, anxious Eye exam: Present: PERRL, EOMI, other (Pale conjunctiva) ENT exam: Present: mucous membranes dry Neck exam: Present: normal inspection. Absent: tenderness, meningismus, lymphadenopathy Respiratory exam: Present: normal lung sounds bilaterally, decreased breath sounds. Absent: respiratory distress, wheezes, rales, rhonchi, stridor Cardiovascular Exam: Present: normal rhythm, tachycardia GI/Abdominal exam: Present: soft, tenderness (Mild tenderness palpation no focal guarding or rebound there is increased tympany.) Rectal exam: Present: heme (+) stool, bloody stool (Also patient does demonstrate a stage II pressure sore over the coccyx.), hemorrhoids Back exam: Present: normal inspection Neurological exam: Present: alert, oriented X3, CN II-XII intact Psychiatric exam: Present: anxious Skin exam: Present: warm, dry, pallor. Absent: intact Course Vital Signs 10/02/16 10/02/16 10/02/16 14:10 16:20 17:08 Temperature 99.8 F H Pulse Rate 102 H 94 91 Respiratory 18 20 20 Rate Blood Pressure 131/96 119/64 O2 Sat by Pulse 98 100 98 Oximetry - Reevaluation(s) Reevaluation #1: 10/02/16 17:16 I did discuss the findings as a were available with the patient and family members. Patient has maintained her blood pressure and vital signs thus far. She denies any cough she did have a fever upon arrival. Medical Decision Making - Medical Decision Making I did have a long discussion with patient family regarding findings. Patient has had a drop in hemoglobin the last several days. Patient will be admitted to intensive care unit with evaluation by pulmonary medicine I did discuss the case with Dr. Rollins with the exception of the chest x-ray results were were not available at that time. Consultation by GI and nephrology. - Lab Data Result diagrams: 10/02/16 14:36 10/02/16 14:36 Lab Results 10/02/16 10/02/16 10/02/16 Range/Units 14:36 14:36 14:36 WBC 7.2 (3.8-10.6) k/uL RBC 3.22 L (3.80-5.40) m/uL Hgb 9.8 L (11.4-16.0) gm/dL Hct 31.9 L (34.0-46.0) % MCV 99.1 (80.0-100.0) fL MCH 30.5 (25.0-35.0) pg MCHC 30.7 L (31.0-37.0) g/dL RDW 18.9 H (11.5-15.5) % Plt Count 106 L (150-450) k/uL Neutrophils % 77 % Lymphocytes % 13 % Monocytes % 5 % Eosinophils % 2 % Basophils % 0 % Neutrophils # 5.6 (1.3-7.7) k/uL Lymphocytes # 1.0 (1.0-4.8) k/uL Monocytes # 0.4 (0-1.0) k/uL Eosinophils # 0.2 (0-0.7) k/uL Basophils # 0.0 (0-0.2) k/uL Manual Slide Review Performed Large Platelets Present Hypochromasia Marked Poikilocytosis Slight Anisocytosis Slight Macrocytosis Moderate Target Cells Present PT (9.0-12.0) sec INR (<1.1) APTT (22.0-30.0) sec Sodium 140 (137-145) mmol/L Potassium 3.8 (3.5-5.1) mmol/L Chloride 100 (98-107) mmol/L Carbon Dioxide 24 (22-30) mmol/L Anion Gap 16 mmol/L BUN 28 H (7-17) mg/dL Creatinine 4.56 H (0.52-1.04) mg/dL Est GFR (MDRD) Af Amer 12 (>60 ml/min/1.73 sqM) Est GFR (MDRD) Non-Af 10 (>60 ml/min/1.73 sqM) Glucose 174 H (74-99) mg/dL Calcium 9.0 (8.4-10.2) mg/dL Magnesium 2.1 (1.6-2.3) mg/dL Total Bilirubin 1.0 (0.2-1.3) mg/dL AST 18 (14-36) U/L ALT 24 (9-52) U/L Alkaline Phosphatase 174 H (38-126) U/L Total Creatine Kinase <20 L (30-135) U/L CK-MB (CK-2) 1.0 (0.0-2.4) ng/mL CK-MB (CK-2) Rel Index 0.0 Troponin I 0.057 H* (0.000-0.034) ng/mL NT-Pro-B Natriuret Pep pg/mL Total Protein 6.5 (6.3-8.2) g/dL Albumin 3.3 L (3.5-5.0) g/dL Stool Occult Blood (Negative) Blood Type Blood Type Recheck Antibody Screen Spec Expiration Date 10/02/16 10/02/16 10/02/16 Range/Units 14:36 14:36 14:56 WBC (3.8-10.6) k/uL RBC (3.80-5.40) m/uL Hgb (11.4-16.0) gm/dL Hct (34.0-46.0) % MCV (80.0-100.0) fL MCH (25.0-35.0) pg MCHC (31.0-37.0) g/dL RDW (11.5-15.5) % Plt Count (150-450) k/uL Neutrophils % % Lymphocytes % % Monocytes % % Eosinophils % % Basophils % % Neutrophils # (1.3-7.7) k/uL Lymphocytes # (1.0-4.8) k/uL Monocytes # (0-1.0) k/uL Eosinophils # (0-0.7) k/uL Basophils # (0-0.2) k/uL Manual Slide Review Large Platelets Hypochromasia Poikilocytosis Anisocytosis Macrocytosis Target Cells PT 13.5 H (9.0-12.0) sec INR 1.4 (<1.1) APTT 24.1 (22.0-30.0) sec Sodium (137-145) mmol/L Potassium (3.5-5.1) mmol/L Chloride (98-107) mmol/L Carbon Dioxide (22-30) mmol/L Anion Gap mmol/L BUN (7-17) mg/dL Creatinine (0.52-1.04) mg/dL Est GFR (MDRD) Af Amer (>60 ml/min/1.73 sqM) Est GFR (MDRD) Non-Af (>60 ml/min/1.73 sqM) Glucose (74-99) mg/dL Calcium (8.4-10.2) mg/dL Magnesium (1.6-2.3) mg/dL Total Bilirubin (0.2-1.3) mg/dL AST (14-36) U/L ALT (9-52) U/L Alkaline Phosphatase (38-126) U/L Total Creatine Kinase (30-135) U/L CK-MB (CK-2) (0.0-2.4) ng/mL CK-MB (CK-2) Rel Index Troponin I (0.000-0.034) ng/mL NT-Pro-B Natriuret Pep pg/mL Total Protein (6.3-8.2) g/dL Albumin (3.5-5.0) g/dL Stool Occult Blood Positive H (Negative) Blood Type A Positive Blood Type Recheck No Antibody Screen NEGATIVE Spec Expiration Date 10/05/2016 - 233510/02/16 Range/Units 15:03 WBC (3.8-10.6) k/uL RBC (3.80-5.40) m/uL Hgb (11.4-16.0) gm/dL Hct (34.0-46.0) % MCV (80.0-100.0) fL MCH (25.0-35.0) pg MCHC (31.0-37.0) g/dL RDW (11.5-15.5) % Plt Count (150-450) k/uL Neutrophils % % Lymphocytes % % Monocytes % % Eosinophils % % Basophils % % Neutrophils # (1.3-7.7) k/uL Lymphocytes # (1.0-4.8) k/uL Monocytes # (0-1.0) k/uL Eosinophils # (0-0.7) k/uL Basophils # (0-0.2) k/uL Manual Slide Review Large Platelets Hypochromasia Poikilocytosis Anisocytosis Macrocytosis Target Cells PT (9.0-12.0) sec INR (<1.1) APTT (22.0-30.0) sec Sodium (137-145) mmol/L Potassium (3.5-5.1) mmol/L Chloride (98-107) mmol/L Carbon Dioxide (22-30) mmol/L Anion Gap mmol/L BUN (7-17) mg/dL Creatinine (0.52-1.04) mg/dL Est GFR (MDRD) Af Amer (>60 ml/min/1.73 sqM) Est GFR (MDRD) Non-Af (>60 ml/min/1.73 sqM) Glucose (74-99) mg/dL Calcium (8.4-10.2) mg/dL Magnesium (1.6-2.3) mg/dL Total Bilirubin (0.2-1.3) mg/dL AST (14-36) U/L ALT (9-52) U/L Alkaline Phosphatase (38-126) U/L Total Creatine Kinase (30-135) U/L CK-MB (CK-2) (0.0-2.4) ng/mL CK-MB (CK-2) Rel Index Troponin I (0.000-0.034) ng/mL NT-Pro-B Natriuret Pep 043509 pg/mL Total Protein (6.3-8.2) g/dL Albumin (3.5-5.0) g/dL Stool Occult Blood (Negative) Blood Type Blood Type Recheck Antibody Screen Spec Expiration Date - EKG Data -: EKG Interpreted by Me (EKG shows a ventricular paced rhythm of 98 QRS duration 166 ET/QTC of 470/6) - Radiology Data Radiology results: report reviewed (X-ray did show evidence of mild congestive failure and what appears be right lower lobe infiltrate.), image reviewed Critical Care Time Critical Care Time: Yes Critical Care Time: 43 minutes of critical care time which includes initial presentation with history physical lab and x-rays discussed with family members and patient evaluation of old charting. Cervical evaluations with the family. Discussion with the admitting physician and bottle booth attendant. Admission orders documentation the above. Disposition Clinical Impression: Hematochezia, Lower gastrointestinal hemorrhage, Pneumonia, Febrile illness, acute, Anemia, Renal failure Disposition: ADMITTED IP TO THIS [facility] Condition: Serious
[2016-10-02 15:20] LABS: Anisocytosis Slight; Basophils % (A) 0 %; CH 30.5; CHCM 31.2; Eosinophils # (A) 0.2 k/uL (0-0.7); Eosinophils % (A) 2 %; HCT 31.9 % (34.0-46.0); HDW 3.64; HGB 9.8 gm/dL (11.4-16.0); Hypochromasia Marked; Large Platelets Flag Slight; Luc # (Auto) 0.15; Luc % (Auto) 2; Lymphocytes % (A) 13 %; MCH 30.5 pg (25.0-35.0); MCHC 30.7 g/dL (31.0-37.0); MCV 99.1 fL (80.0-100.0); Macrocytosis Moderate; Mean Platelet Volume 11.6; Monocytes # (A) 0.4 k/uL (0-1.0); Monocytes % (A) 5 %; Neutrophils # (A) 5.6 k/uL (1.3-7.7); Neutrophils % (A) 77 %; Poikilocytosis Slight; RBC 3.22 m/uL (3.80-5.40); RDW 18.9 % (11.5-15.5); WBC 7.2 k/uL (3.8-10.6)
--- NOTE | 2016-10-02 15:34 | XR ---
EXAMINATION TYPE: XR abdomen 2V DATE OF EXAM: 10/02/2016 3:28 PM COMPARISON: 04/02/2016 HISTORY: Abdominal pain TECHNIQUE: 3 views FINDINGS: Heart is enlarged. There is blunting of right costophrenic angle with infiltrate at the rig ht lung base. There is no sign of intestinal obstruction or pneumoperitoneum. Fecal pattern is normal. There are nu merous vascular calcifications. There are chest leads. There is probably congestive heart failure. IMPRESSION: Right pleural effusion and right lower lobe infiltrate. There is probably congestive hear t failure. Nonacute abdomen. No change compared to last exam.
[2016-10-02 15:35] LABS: Magnesium 2.1 mg/dL (1.6-2.3); Potassium 3.8 mmol/L (3.5-5.1); Total Protein 6.5 g/dL (6.3-8.2)
[2016-10-02 15:43] LABS: INR 1.4 (<1.1); Partial Thromboplastin Time 24.1 sec (22.0-30.0); Prothrombin Time 13.5 sec (9.0-12.0)
[2016-10-02 15:45] LABS: Creatine Kinase <20 U/L (30-135)
--- NOTE | 2016-10-02 15:57 | XR ---
EXAMINATION TYPE: XR chest 1V portable DATE OF EXAM: 10/02/2016 3:50 PM COMPARISON: 09/30/2016 HISTORY: GI bleed TECHNIQUE: Single frontal view of the chest is obtained. FINDINGS: Heart is enlarged. There is pulmonary vascular congestion. There are infiltrates in the ri ght lower lobe with blunting of right costophrenic angle. There are sternal wires. There is a left ax illary pacemaker with the lead tips in the right ventricle. IMPRESSION: Mild congestive heart failure with right pleural effusion and right lower lobe infiltrat e. No change compared to last exam.
[2016-10-02 15:58] LABS: Large Platelets Present; Manual Review Performed; Target Cells Present
[2016-10-02 15:59] LABS: Troponin I 0.057 ng/mL (0.000-0.034)
[2016-10-02] MEDS ORDERED: FUROSEMIDE 10 MG/ML 4 ML VIAL IV STA (17:14)
[2016-10-02] MEDS ORDERED: NALOXONE 0.4 MG/ML 1 ML VIAL IV PRN (17:19)
[2016-10-02] MEDS ORDERED: PIPERACILLIN-TAZOBACTAM 3.375 GM in DEXTROSE/WATER 1 50ML.BAG IVPB STA (17:19)
[2016-10-02] MEDS: SODIUM CHLORIDE 0.9% 1,000 ML IV SCH (18:30)
[2016-10-02] MEDS: HYDROcodone/APAP 10-325MG 1 EACH TAB PO PRN (20:57)
[2016-10-02 22:38] LABS: Glucose,Whole Blood 150 mg/dL (75-99)
[2016-10-02] MEDS: INSULIN LISPRO (humaLOG) 300 UNIT/3 ML VIAL SQ SCH ×2 (22:48→22:57)
[2016-10-02] MEDS: IPRATROPIUM-ALBUTEROL 3 ML NEB INHALATION SCH ×2 (23:57)
[2016-10-03] MEDS ORDERED: NALOXONE 0.4 MG/ML 1 ML VIAL IV PRN (00:05)
[2016-10-03 00:20] LABS: Anisocytosis Slight; Basophils % (A) 0 %; CH 30.6; CHCM 31.4; Eosinophils # (A) 0.2 k/uL (0-0.7); Eosinophils % (A) 3 %; HDW 3.72; HGB 8.7 gm/dL (11.4-16.0); Hypochromasia Marked; Luc # (Auto) 0.13; Luc % (Auto) 2; Lymphocytes # (A) 0.9 k/uL (1.0-4.8); Lymphocytes % (A) 16 %; MCH 30.7 pg (25.0-35.0); MCHC 31.1 g/dL (31.0-37.0); MCV 98.7 fL (80.0-100.0); Macrocytosis Slight; Mean Platelet Volume 10.9; Monocytes # (A) 0.3 k/uL (0-1.0); Monocytes % (A) 5 %; Neutrophils # (A) 4.1 k/uL (1.3-7.7); Neutrophils % (A) 74 %; Poikilocytosis Slight; RBC 2.84 m/uL (3.80-5.40); RDW 18.9 % (11.5-15.5); WBC 5.6 k/uL (3.8-10.6); WBC (Perox) 5.78
[2016-10-03] MEDS: IPRATROPIUM-ALBUTEROL 3 ML NEB INHALATION SCH ×5 (03:32→20:08)
[2016-10-03 07:02] LABS: Glucose,Whole Blood 139 mg/dL (75-99)
[2016-10-03 07:28] LABS: Glucose,Whole Blood 138 mg/dL (75-99)
[2016-10-03 07:42] LABS: Anisocytosis Slight; Basophils % (A) 1 %; CH 30.1; Eosinophils # (A) 0.1 k/uL (0-0.7); Eosinophils % (A) 3 %; HCT 28.7 % (34.0-46.0); HDW 3.52; HGB 8.3 gm/dL (11.4-16.0); Hypochromasia Marked; Large Platelets Flag Marked; Luc # (Auto) 0.05; Luc % (Auto) 1; Lymphocytes # (A) 0.8 k/uL (1.0-4.8); Lymphocytes % (A) 18 %; MCH 30.4 pg (25.0-35.0); MCHC 28.9 g/dL (31.0-37.0); Macrocytosis Marked; Mean Platelet Volume 13.4; Monocytes # (A) 0.2 k/uL (0-1.0); Monocytes % (A) 5 %; Neutrophils # (A) 3.2 k/uL (1.3-7.7); Neutrophils % (A) 73 %; Poikilocytosis Slight; RBC 2.73 m/uL (3.80-5.40); WBC 4.4 k/uL (3.8-10.6)
[2016-10-03 07:53] LABS: Calcium 8.6 mg/dL (8.4-10.2); Magnesium 2.1 mg/dL (1.6-2.3); Phosphorous 4.8 mg/dL (2.5-4.5); Potassium 3.5 mmol/L (3.5-5.1)
[2016-10-03 07:56] LABS: MCV 105.2 fL (80.0-100.0)
[2016-10-03] MEDS: PANTOPRAZOLE 40 MG/10 ML VIAL IV SCH ×2 (08:02→21:37)
[2016-10-03] MEDS: INSULIN LISPRO (humaLOG) 300 UNIT/3 ML VIAL SQ SCH ×4 (08:02→21:39)
--- NOTE | 2016-10-03 08:26 | XR ---
EXAMINATION TYPE: XR chest 1V DATE OF EXAM: 10/03/2016 6:32 AM COMPARISON: October 02, 2016 HISTORY: Congestive heart failure, follow-up exam. TECHNIQUE: Single frontal view of the chest is obtained. FINDINGS: There is redemonstration of cardiomegaly, moderate pulmonary vascular congestion, and smal l pleural effusions with interval worsening in degree of right lower lobe and peripheral right midlun g consolidation. Postsurgical changes of the mediastinum and intact midline sternotomy wires are agai n appreciated as well as a cardiac device overlying the left hemithorax. IMPRESSION: Mild worsening of sequela of congestive heart failure with cardiomegaly, bilateral small pleural effusions and moderate pulmonary vascular congestion.
--- NOTE | 2016-10-03 08:36 | P.NPCON ---
History of Present Illness - Reason for Consult end stage renal disease - Chief Complaint confusion. - History of Present Illness 74 yo female with ESRD MWF brought ni by her for reoccurring GI bleed. Also became increasingly confused. She is alert / oriented x 1. She did have HD on Tuesday without issues. She is hypotensive but difficult to get accurate readings. She has rectal tube with dark tarry stool noted. She has not required pressors. Review of Systems All systems: negative Past Medical History Past Medical History: Asthma, Coronary Artery Disease (CAD), Chest Pain / Angina , Heart Failure, CVA/TIA, Diabetes Mellitus, Dialysis, Hyperlipidemia, Myocardial Infarction ([place]), Renal Disease Additional Past Medical History / Comment(s): Pt recently admitted 09/17/16 with anemia/CHF/hypotension/chronic renal failure. Other HX: End stage kidney failure, on dialysis //Tue; chronic anemia, lower GI bleed d/t colorectal polyps, scoliosis right hip; cva in 2010 - no residual other than eyes tear frequently; aortic stenosis with surgery then calcified and replaced again, left eye macular degeneration. Hypotension with systolic blood pressures normally running below 90 and diastolic pressure below 60. Last Myocardial Infarction Date:: 02/2013 History of Any Multi-Drug Resistant Organisms: MRSA, Other MDRO Date of last positivie culture/infection: 11/05/09 MDRO Source:: Unknown Past Surgical History: Adenoidectomy, AICD, Cardiac Valve Replacement, Section, Coronary Bypass/CABG, Heart Catheterization, Orthopedic Surgery, Pacemaker, Tonsillectomy Additional Past Surgical History / Comment(s): 05/30/16 EGD/colonoscopy with polypectomy, cabg sep 2009 x 6 vessels; AV replaced jun 2011 and 2012, arthroscopies bhavya knees, AVF bilateral arms, AICD/pacer 05/2014 Past Anesthesia/Blood Transfusion Reactions: No Reported Reaction Type of Cardiac Device: Permanent Pacemaker, AICD Device Placement Date:: 06/04 Past Psychological History: No Psychological Hx Reported Additional Psychological History / Comment(s): Pt just admitted to [facility] . She is an extensive assist to wheelchair. She goes to hemodialysis on TUE/ TUE/TUE. Smoking Status: Former smoker Past Alcohol Use History: Rare Additional Past Alcohol Use History / Comment(s): "couple sips of beer throughout the year" started smoking at age 14 smoked 1 ppd, quit in 1982 Past Drug Use History: None Reported - Past Family History Father Family Medical History: Congestive Heart Failure (CHF), Diabetes Mellitus Mother Family Medical History: Diabetes Mellitus Additional Family Medical History / Comment(s): blocked carotids; kidney failure Sister(s) Family Medical History: Cancer Medications and Allergies Home Medications Medication Instructions Recorded Confirmed Type Cinacalcet HCl [Sensipar] 30 mg PO DAILY@169904/07/14 10/02/16 History Montelukast [Singulair] 10 mg PO HS@209904/07/14 10/02/16 History Simvastatin [Zocor] 40 mg PO HS@209908/18/15 10/02/16 History Cinacalcet HCl [Sensipar] 90 mg PO DAILY@169904/02/16 10/02/16 History Escitalopram [Lexapro] 40 mg PO DAILY@0800 04/02/16 10/02/16 History rOPINIRole HCL [Ropinirole HCl] 2 mg PO HS@209904/02/16 10/02/16 History Cevimeline HCl 30 mg PO DAILY@0800 05/28/16 10/02/16 History Insulin Aspart [NovoLOG] See Protocol SQ ACHS 05/28/16 10/02/16 History Calcium Acetate [PhosLo] 667 mg PO TID@0800,1200,1700 09/17/16 10/02/16 History Clopidogrel Bisulfate [Plavix] 75 mg PO DAILY@0800 09/17/16 10/02/16 History Docusate [Colace] 100 mg PO BID@0800,1700 09/17/16 10/02/16 History Bisacodyl [Dulcolax] 10 mg RECTAL DAILY PRN 09/24/16 10/02/16 History Folic Acid-Vit B Complex-Vit C 1 cap PO DAILY@0 09/24/16 10/02/16 History [Nephrocaps] Magnesium Hydroxide [Milk of 2,400 mg PO DAILY PRN 09/24/16 10/02/16 History Magnesia] Na Phos,M-B/Na Phos,Di-Ba [Fleet 133 ml RECTAL ONCE PRN 09/24/16 10/02/16 History Adult] Nepro 1 can PO BID@0800,1700 09/24/16 10/02/16 History Pantoprazole Sodium [Protonix] 40 mg PO DAILY@0800 09/24/16 10/02/16 History HYDROcodone/APAP 10-325MG [[place] 1 tab PO Q4H PRN 10/02/16 10/02/16 History 10-325] Allergies Allergy/AdvReac Type Severity Reaction Status Date / Time adhesive Allergy Rash/Hives Verified 10/02/16 15:02 Sulfa (Sulfonamide Allergy Rash/Hives Verified 10/02/16 15:02 Antibiotics) sulfacetamide sodium Allergy Unknown Verified 10/02/16 15:02 [From Sulfamide] Physical Exam Vitals: Vital Signs Temp Pulse Resp BP Pulse Ox 10/03/16 08:00 98.7 F 99 20 86/68 95 10/03/16 06:00 87 23 98 10/03/16 05:30 87 31 H 93 L 10/03/16 05:00 90 23 93 L 10/03/16 04:30 92 24 96 10/03/16 04:00 98.7 F 90 22 97 10/03/16 03:47 82 10/03/16 03:33 83 10/03/16 03:30 86 20 97 10/03/16 03:00 84 26 H 96 10/03/16 02:30 66 23 95 10/03/16 02:00 84 22 92 L 10/03/16 01:30 82 24 96 10/03/16 01:00 87 23 95 10/03/16 00:30 89 26 H 94 L 10/03/16 00:10 86 10/03/16 00:00 89 23 97 10/02/16 23:55 89 85/60 96 10/02/16 23:30 93 22 85/60 97 10/02/16 23:00 98.5 F 92 10/02/16 21:10 86 18 96 10/02/16 20:18 83 20 109/62 98 10/02/16 19:10 83 20 97 10/02/16 18:15 79 18 97 Intake and Output 10/02/16 10/03/16 10/03/16 22:59 06:59 14:59 Intake Total 160 20 Output Total 0 0 Balance 160 20 Intake: Intake, IV Titration 160 20 Amount Sodium Chloride 0.9% 1, 160 20 000 ml @ 20 mls/hr IV . Q24H [facility] Rx#:[id number] Output: Urine 0 0 Other: Weight 87.09 kg 81.8 kg - Constitutional General appearance: cooperative, no acute distress - Respiratory Respiratory: bilateral: CTA - Cardiovascular Rhythm: regular Heart sounds: normal: S1, S2 leg Peripheral Edema: bilateral: None Results - Lab Results Most recent lab results Calcium 8.6 mg/dL (8.4-10.2) 10/03/16 06:35 Phosphorus 4.8 mg/dL (2.5-4.5) H 10/03/16 06:35 Magnesium 2.1 mg/dL (1.6-2.3) 10/03/16 06:35 10/03/16 06:35 10/03/16 06:35 Assessment and Plan Plan: Assessment: 1. ESRD MWF 2. Recurrent GI Bleed with workup in past unremarkable. 3. Metabolic Encephalopathy 4. Acute on Chronic Anemia. 5. CKD-MBD 6. HTN Recommendations: 1. No indication for dialysis today. Next HD tomorrow. 2. Recommend Head CT in view of Encephalopathy. 3. GI evalution. Per there was discussion for capsule endoscopy. 4. Limit IVFs to IV boluses if BP remains low.
[2016-10-03 08:56] LABS: Large Platelets Present; Manual Review Performed
[2016-10-03 09:08] LABS: Toxic Granulation Present
[2016-10-03] MEDS: HYDROcodone/APAP 10-325MG 1 EACH TAB PO PRN ×3 (09:09→21:33)
[2016-10-03 12:08] LABS: Glucose,Whole Blood 154 mg/dL (75-99)
--- NOTE | 2016-10-03 12:15 | CONS ---
DATE OF CONSULTATION: 10/03/2016 Patient is a 65-year-old white female with history of endstage renal disease on hemodialysis, was admitted to the hospital as she was transferred from [facility] with black/burgundy-colored stools that started yesterday afternoon. The patient was just discharged from the hospital 2 days ago to [facility] for rehab therapy. Her last hospitalization was for intermittent GI bleed for and anemia for the last 3 to 4 months' duration. She was recently evaluated by Dr. Romero on September 23, underwent an upper endoscopy for melena which showed small hiatal hernia, mild gastritis but no obvious evidence of active bleeding. The plan was to proceed with a small bowel capsule endoscopy if she continues to have persistent bleed. Her last colonoscopy was done by Dr. Gregorio in March of 2016, which showed diverticulosis. The patient is presently in the intensive care unit with some hypertension. She has an ( ) placed and she has no melanotic stools in the bag. She denies any abdominal pain. She reports no nausea or vomiting. Her hemoglobin at the time of admission to the hospital was 8.7 and this morning is down to 8.3 g/dL. Her past medical history is significant for end-stage renal disease on hemodialysis, coronary artery disease, hypertension, hyperlipidemia, diabetes mellitus, history of TIA in the past. PAST SURGICAL HISTORY: Cardiac valve replacement, adenoidectomy, AICD placement, section, CABG, tonsillectomy. SOCIAL HISTORY: Former smoker. No alcohol use. FAMILY HISTORY: Father had diabetes mellitus, congestive heart failure, mother has diabetes mellitus, sister had some kind of a cancer. Medications at home: Sensipar, Singulair, Zocor, Lexapro, ropinirole, NovoLog, PhosLo, Plavix, Colace, Dulcolax, folic acid, milk of magnesia, Nephrocaps, Protonix, [place]. Allergies to SULFA, ADHESIVE TAPE. REVIEW OF SYSTEMS: CARDIOPULMONARY: She denies any chest pain or shortness of breath. GENITOURINARY: No dysuria or hematuria. MUSCULOSKELETAL: Unremarkable. SKIN: Unremarkable. ENDOCRINE: Unremarkable. PSYCHIATRIC: Unremarkable. NEUROLOGY: Mild dementia. ENT/VISION: Unremarkable. CONSTITUTIONAL: No recent weight loss. No fever, chills, night sweats. HEMATOLOGY: Anemia. ENDOCRINOLOGY: Unremarkable. On physical examination, she appears comfortable, in no apparent distress. Vitals as are stable. Blood pressure is 86/68, pulse rate 82, and afebrile. HEENT examination unremarkable. Conjunctivae are pale. Sclerae nonicteric. Oral cavity, no lesions. NECK: No JVD of lymph node enlargement. Chest was clear to auscultation. HEART: Regular rate and rhythm. Abdomen is soft. It was nontender, nondistended. Bowel sounds are positive. No organomegaly. EXTREMITIES: No pedal edema. SKIN: No rashes. NEURO: Alert and oriented x3. No focal deficits. There was ( ) at the bedside that showed liquid black stool. Labs done at the time of discussion in the hospital on September 30 and it showed a hemoglobin of 10.3 and now it is 8.3, platelets are 73,000. BUN is 32, creatinine is 5.21. INR 1.4. C. diff toxin is negative. IMPRESSION: 1. This is a lady with history of endstage renal disease on hemodialysis, has been admitted to the hospital several times over the last 6 months with episodes of intermittent black, tarry stools. She had an upper endoscopy and colonoscopy by Dr. Gregorio in March of 2016, which showed mild gastritis and diverticulosis. She had a repeat upper endoscopy by Dr. Gregorio in June of 2016, which showed small hiatal hernia and mild gastritis. She had a repeat EGD by Dr. Romero on September 27 which was a week ago, once again that showed a small hiatal hernia and gastritis. Her last colonoscopy was in March of 2016 that showed diverticulosis. She continues to have intermittent black, tarry stools with significant drop in hemoglobin requiring blood transfusion periodically. Most likely we may be dealing with small bowel source of bleeding. 2. Endstage renal disease on hemodialysis. 3. History of hypertension and hyperlipidemia, cerebrovascular accident in the past, presently on aspirin and Plavix. RECOMMENDATIONS: I had a lengthy discussion with the patient as well as her , who is at the bedside, suggested that we proceed with a small bowel capsule endoscopy tomorrow. I discussed with them the risks, benefits and complications of the procedure. They are agreeable to it. Thank you for this consultation.
[2016-10-03 12:37] LABS: Anisocytosis Slight; CHCM 29.7; HCT 28.7 % (34.0-46.0); HDW 3.51; HGB 8.8 gm/dL (11.4-16.0); Hypochromasia Marked; Large Platelets Flag Marked; MCH 31.5 pg (25.0-35.0); MCHC 30.8 g/dL (31.0-37.0); MCV 102.3 fL (80.0-100.0); Macrocytosis Moderate; Mean Platelet Volume 12.2; Poikilocytosis Slight; RBC 2.81 m/uL (3.80-5.40); RDW 18.3 % (11.5-15.5); WBC 5.4 k/uL (3.8-10.6)
--- NOTE | 2016-10-03 14:13 | P.CNPUL ---
History of Present Illness Consult date: 10/03/16 Requesting physician: Nishant Garcia Reason for consult: other (Recurrent GI bleeding) Chief complaint: Black tarry stools History of present illness: This is a 65-year-old female with history of multiple medical problems including chronic renal failure, on hemodialysis, history of coronary artery disease, congestive heart failure, diabetes, previous myocardial infarction, and previous episodes of GI bleeding. Workup in the past for GI bleeding specifically during her last admission failed to demonstrate the exact site of bleeding. Patient is also known to have chronic hypotension and history of CABG 6 vessels and history of aortic valve replacement. History of AICD placement back in 2013. Patient was recently discharged back to a detention after being treated for GI bleeding, and she was seen by many consultants during her last admission. She presented again to the ER with burgundy colored stools and lower abdominal pain and discomfort. This all started yesterday, while she was at medical [place]. Apparently her issue with GI bleeding and anemia dates back for the last few months. Recent EGD done by Dr. Anne on September 23 showed small hiatal hernia, mild gastritis, and no obvious evidence of active bleeding. The plan was to proceed with small bowel capsule endoscopy if her bleeding continues or persists. Her last colonoscopy was done by Dr. Herrera in March of 2016. And she was found to have at the time some diverticulosis. Considering the presentation of melanotic stools and hypotension, not to mention that the patient is chronically hypotensive, and her blood pressures in the past have always been in the 70s and 80s systolic. According to her this is about her baseline. At any rate considering the patient was admitted to the ICU, I was asked to see her on consultation. Patient denies any nausea or vomiting, denies any significant abdominal pain, denies any headaches no blurred vision no dizziness. Patient was already seen by Dr. Daugherty on consultation, and she is planning to proceed with a small bowel capsule endoscopy tomorrow. In the meantime we will monitor the patient in the ICU, hemoglobin on admission was 8.7, and hemoglobin this morning is 8.8. Patient has blood on hold, but not yet transfused. Review of Systems 14 point review of systems were obtained, please refer to pertinent positives and negatives in HPI. Past Medical History Past Medical History: Asthma, Coronary Artery Disease (CAD), Chest Pain / Angina , Heart Failure, CVA/TIA, Diabetes Mellitus, Dialysis, Hyperlipidemia, Myocardial Infarction ([place]), Renal Disease Additional Past Medical History / Comment(s): Pt recently admitted 09/17/16 with anemia/CHF/hypotension/chronic renal failure. Other HX: End stage kidney failure, on dialysis //Tue; chronic anemia, lower GI bleed d/t colorectal polyps, scoliosis right hip; cva in 2010 - no residual other than eyes tear frequently; aortic stenosis with surgery then calcified and replaced again, left eye macular degeneration. Hypotension with systolic blood pressures normally running below 90 and diastolic pressure below 60. Last Myocardial Infarction Date:: 02/2013 History of Any Multi-Drug Resistant Organisms: MRSA, Other MDRO Date of last positivie culture/infection: 11/05/09 MDRO Source:: Unknown Past Surgical History: Adenoidectomy, AICD, Cardiac Valve Replacement, Section, Coronary Bypass/CABG, Heart Catheterization, Orthopedic Surgery, Pacemaker, Tonsillectomy Additional Past Surgical History / Comment(s): 05/30/16 EGD/colonoscopy with polypectomy, cabg sep 2009 x 6 vessels; AV replaced jun 2011 and 2012, arthroscopies bhavya knees, AVF bilateral arms, AICD/pacer 05/2014 Past Anesthesia/Blood Transfusion Reactions: No Reported Reaction Type of Cardiac Device: Permanent Pacemaker, AICD Device Placement Date:: 06/04 Past Psychological History: No Psychological Hx Reported Additional Psychological History / Comment(s): Pt just admitted to [facility] . She is an extensive assist to wheelchair. She goes to hemodialysis on TUE/ TUE/TUE. Smoking Status: Former smoker Past Alcohol Use History: Rare Additional Past Alcohol Use History / Comment(s): "couple sips of beer throughout the year" started smoking at age 14 smoked 1 ppd, quit in 1981 Past Drug Use History: None Reported - Past Family History Father Family Medical History: Congestive Heart Failure (CHF), Diabetes Mellitus Mother Family Medical History: Diabetes Mellitus Additional Family Medical History / Comment(s): blocked carotids; kidney failure Sister(s) Family Medical History: Cancer Medications and Allergies Home Medications Medication Instructions Recorded Confirmed Type Cinacalcet HCl [Sensipar] 30 mg PO DAILY@1700 04/07/14 10/02/16 History Montelukast [Singulair] 10 mg PO HS@2100 04/07/1417 History Simvastatin [Zocor] 40 mg PO HS@209908/18/15 10/02/16 History Cinacalcet HCl [Sensipar] 90 mg PO DAILY@1700 04/02/16 10/02/16 History Escitalopram [Lexapro] 40 mg PO DAILY@0800 04/02/16 10/02/16 History rOPINIRole HCL [Ropinirole HCl] 2 mg PO HS@209904/02/16 10/02/16 History Cevimeline HCl 30 mg PO DAILY@0800 05/28/16 10/02/16 History Insulin Aspart [NovoLOG] See Protocol SQ ACHS 05/28/16 10/02/16 History Calcium Acetate [PhosLo] 667 mg PO TID@0800,1200,1700 09/17/16 10/02/16 History Clopidogrel Bisulfate [Plavix] 75 mg PO DAILY@0800 09/17/16 10/02/16 History Docusate [Colace] 100 mg PO BID@0800,1700 09/17/16 10/02/16 History Bisacodyl [Dulcolax] 10 mg RECTAL DAILY PRN 09/24/16 10/02/16 History Folic Acid-Vit B Complex-Vit C 1 cap PO DAILY@1700 09/24/16 10/02/16 History [Nephrocaps] Magnesium Hydroxide [Milk of 2,400 mg PO DAILY PRN 09/24/16 10/02/16 History Magnesia] Na Phos,M-B/Na Phos,Di-Ba [Fleet 133 ml RECTAL ONCE PRN 09/24/16 10/02/16 History Adult] Nepro 1 can PO BID@0800,1700 09/24/16 10/02/16 History Pantoprazole Sodium [Protonix] 40 mg PO DAILY@0800 09/24/16 10/02/16 History HYDROcodone/APAP 10-325MG [[place] 1 tab PO Q4H PRN 10/02/16 10/02/16 History 10-325] Allergies Allergy/AdvReac Type Severity Reaction Status Date / Time adhesive Allergy Rash/Hives Verified 10/02/16 15:02 Sulfa (Sulfonamide Allergy Rash/Hives Verified 10/02/16 15:02 Antibiotics) sulfacetamide sodium Allergy Unknown Verified 10/02/16 15:02 [From Sulfamide] Physical Exam Vitals: Vital Signs Temp Pulse Resp BP Pulse Ox 10/03/16 13:00 96 19 68/30 96 10/03/16 12:20 93 10/03/16 12:07 93 10/03/16 12:00 98.2 F 86 20 73/47 95 10/03/16 11:00 94 19 88/50 96 10/03/16 10:00 87 20 93/75 95 10/03/16 09:00 99 26 H 77/57 96 10/03/16 08:00 98.7 F 99 20 86/68 95 10/03/16 06:00 87 23 98 10/03/16 05:30 87 31 H 93 L 10/03/16 05:00 90 23 93 L 10/03/16 04:30 92 24 96 10/03/16 04:00 98.7 F 90 22 97 10/03/16 03:47 82 10/03/16 03:33 83 10/03/16 03:30 86 20 97 10/03/16 03:00 84 26 H 96 10/03/16 02:30 66 23 95 10/03/16 02:00 84 22 92 L 10/03/16 01:30 82 24 96 10/03/16 01:00 87 23 95 10/03/16 00:30 89 26 H 94 L 10/03/16 00:10 86 10/03/16 00:00 89 23 97 10/02/16 23:55 89 85/60 96 10/02/16 23:30 93 22 85/60 97 10/02/16 23:00 98.5 F 92 10/02/16 21:10 86 18 96 10/02/16 20:18 83 20 109/62 98 10/02/16 19:10 83 20 97 10/02/16 18:15 79 18 97 Intake and Output 10/02/16 10/03/16 10/03/16 22:59 06:59 14:59 Intake Total 160 390 Output Total 0 0 Balance 160 390 Intake: Intake, IV Titration 160 140 Amount Sodium Chloride 0.9% 1, 160 140 000 ml @ 20 mls/hr IV . Q24H [facility] Rx#:[id number] Oral 250 Output: Urine 0 0 Other: Weight 87.09 kg 81.8 kg General appearance: alert, anxious, in no form of distress. Eye exam: PERRL, EOMI, other (Pale conjunctiva) ENT exam: : mucous membranes dry Neck exam: : No neck masses no JVD Respiratory exam: Present: normal lung sounds bilaterally, decreased breath sounds. Absent: respiratory distress, wheezes, rales, rhonchi, stridor Cardiovascular Exam: Present: normal rhythm, tachycardia GI/Abdominal exam: Present: soft, tenderness (Mild tenderness palpation no focal guarding or rebound there is increased tympany.) Rectal exam: Present: heme (+) stool, bloody stool (Also patient does demonstrate a stage II pressure sore over the coccyx.), hemorrhoids Back exam: Present: normal inspection Neurological exam: Present: alert, oriented X3, CN II-XII intact Psychiatric exam: Present: anxious Skin exam: Present: warm, dry, pallor. Absent: intact Results - Laboratory Findings CBC and BMP: 10/03/16 11:57 10/03/16 06:35 PT/INR, D-dimer PT 13.5 sec (9.0-12.0) H 10/02/16 14:36 INR 1.4 (<1.1) 10/02/16 14:36 Abnormal lab findings: Abnormal Labs 10/02/16 10/02/16 10/03/16 22:35 23:39 06:35 RBC 2.84 L 2.73 L Hgb 8.7 L 8.3 L Hct 28.0 L 28.7 L MCV 105.2 H D MCHC 28.9 L RDW 18.9 H 19.0 H Plt Count 95 L 73 L Lymphocytes # 0.9 L 0.8 L Carbon Dioxide BUN Creatinine Glucose POC Glucose (mg/dL) 150 H Phosphorus 10/03/16 10/03/16 10/03/16 06:35 07:00 07:27 RBC Hgb Hct MCV MCHC RDW Plt Count Lymphocytes # Carbon Dioxide 21 L BUN 32 H Creatinine 5.21 H* Glucose 131 H POC Glucose (mg/dL) 139 H 138 H Phosphorus 4.8 H 10/03/16 10/03/16 11:57 12:06 RBC 2.81 L Hgb 8.8 L Hct 28.7 L MCV 102.3 H MCHC 30.8 L RDW 18.3 H Plt Count 82 L Lymphocytes # Carbon Dioxide BUN Creatinine Glucose POC Glucose (mg/dL) 154 H Phosphorus - Diagnostic Findings Chest x-ray: image reviewed (Chest x-ray is suggestive of congestive heart failure changes, bilateral pleural effusions, and moderate pulmonary vascular congestion noted.) Assessment and Plan Plan: Impression: 1 acute GI bleeding with presentation of melanotic stools, suggestive of possible upper GI bleeding although her recent workup and EGD was negative for active bleeding. Patient had a previous colonoscopy in the last 6 months, and that showed evidence of diverticulosis. 2 end-stage renal disease, on hemodialysis, patient was already seen by nephrology on consultation, and I believe dialysis is being considered possibly today or tomorrow. 3 acute congestive heart failure and fluid overload secondary to end-stage renal disease, patient will improve with dialysis and ultrafiltration. 4 history of multiple comorbidities including coronary artery disease and previous CABG previous AICD placement, previous aortic valve replacement. History of chronic hypotension, most likely related to her vasculopathy, history of CVA in 2010, history of aortic stenosis history of macular degeneration. Recommendation: Continue to monitor the patient in the ICU, monitor serial hemoglobins today, and transfuse if hemoglobin is below 7. No need for pressors at this point, considering the patient has had low blood pressure on every admission, and it is difficult to monitor her blood pressure without placement of an arterial line which I may consider today. Discussed her condition with the patient and with her at bedside. On her last admission, the patient was seen by Dr. Chung on consultation, however prior to that she was seen by Dr. Hills on consultation. Patient was given the option of whom she would like to be seen by this time, and she requested to be seen by Dr. Hills's group. Hence we'll keep the patient on our service, and we will follow along with the rest of the consultants and primary care unit and this admission. Dr. Chung was notified by the nurse of the patient's request. Mostly because he came in and requested the patient to be transferred to his service, but this will not be done as per patient's wishes. Time with Patient: Greater than 30
[2016-10-03 14:14] LABS: Hemoglobin A1C 5.3 % (4.2-6.1)
[2016-10-03 17:34] LABS: Glucose,Whole Blood 163 mg/dL (75-99)
[2016-10-03] MEDS: SODIUM CHLORIDE 0.9% 1,000 ML IV SCH (17:50)
[2016-10-03 18:14] LABS: Anisocytosis Slight; CHCM 29.5; HCT 28.1 % (34.0-46.0); HDW 3.48; HGB 8.6 gm/dL (11.4-16.0); Hypochromasia Marked; Large Platelets Flag Marked; MCH 31.5 pg (25.0-35.0); MCHC 30.6 g/dL (31.0-37.0); MCV 102.9 fL (80.0-100.0); Macrocytosis Moderate; Poikilocytosis Slight; RBC 2.73 m/uL (3.80-5.40); RDW 18.2 % (11.5-15.5); WBC 5.7 k/uL (3.8-10.6)
[2016-10-03] MEDS ORDERED: MAGNESIUM CITRATE 296 ML BOTTLE PO ONE (19:00)
--- NOTE | 2016-10-03 20:10 | HP ---
DATE OF ADMISSION: 10/02/2016 CHIEF COMPLAINT: Black, tarry stools. HISTORY OF PRESENT ILLNESS: This is a 65-year-old lady patient of Dr. Nishant Garcia currently seen in [place] coverage comes into the hospital with complaints of black, tarry stools in the recent times. The patient has an extensive history of ESRD, congestive heart failure, diabetes. The patient underwent work-up recently with an upper endoscopy done by Dr. Romero which did not reveal any sources of bleeding. The patient apparently also underwent a colonoscopy done by Dr. Gregorio in March which was also negative at that time. Patient comes into the hospital with melanotic stools and hypotension. ( ) examinations. The patient denies having any chest pain, difficulty in breathing, nausea, vomiting, abdominal pain. Patient states that her blood pressure is usually low, which was also documented in the previous documentation at patient's blood pressure is low due to diffuse vasculopathy. Hemoglobin on admission was 8.7. Patient was triaged to the ICU. REVIEW OF SYSTEMS: A fourteen-point review of systems was done; none pertinent other than as mentioned in the HPI. Past medical history includes asthma, CAD, congestive heart failure, diabetes mellitus, end stage renal disease, chronic hypotension. Surgical history includes an EGD, colonoscopy, coronary artery bypass graft, AICD placement, multiple arthroscopies, adenoidectomy, and orthopedic surgery. SOCIAL HISTORY: The patient is a former smoker, rarely drinks alcohol. Denies illicit drug use. FAMILY HISTORY: Not pertinent to the current admission. No history of IgA cancers reported. Medications at home include: 1. Sensipar. 2. Singulair. 3. Zocor. 4. Lexapro. 5. Ropinirole. 6. Cevimeline. 7. Novolog Sliding scale. 8. PhosLo. 9. Plavix. 10. Colace. 11. Dulcolax. 12. Nephrocaps. 13. Milk of magnesia. 14. Protonix. 15. Hannaford. 16. Doses were reviewed on med reconciliation. ALLERGIES: THE PATIENT IS ALLERGIC TO SULFA. PHYSICAL EXAM: VITAL SIGNS: Temperature 98.2, heart rate is 96, respiratory rate 19, blood pressures systolic 60s to 93 over diastolic 30 to 68. GENERAL APPEARANCE: The patient is alert, oriented x3. HEAD: Atraumatic, normocephalic. Pupils are equal, round, and react to light and accommodation. Extraocular movements intact. Neck is supple. No JVD. RESPIRATORY: Good air movement. No crackles or wheezing or rhonchi appreciated. Cardiovascular exam: Regular rate and rhythm. No murmurs appreciated. ABDOMEN: Soft, nontender, no organomegaly. Bowel sounds intact. Rectal exam was done by prior physician, which was noted to be positive for stool. NEUROLOGICAL: Cranial nerves II through XII grossly intact. No focal motor or sensory deficits noted. LABORATORY DATA: Hemoglobin 8.8, hematocrit 28.7. White count 5.4, platelets of 82, sodium 142, potassium 3.4, chloride 104, bicarb 21. BUN 32, creatinine of 5.21. ASSESSMENT AND PLAN: 1. Acute blood loss anemia gastrointestinal source. 2. End-stage renal disease on hemodialysis. 3. Acute systolic heart failure secondary to fluid overload and component of end stage renal disease. 4. History of coronary artery disease. 5. Diabetes mellitus, type II. 6. History of aortic stenosis. 7. History macular-degeneration. 8. History of chronic hypotension. PLAN: GI recommendations appreciated. Patient is to undergo capsule endoscopy. Continue ongoing care. Dialysis plans per nephrology. Even with lower blood pressure, the patient mentation appears to be stable. The patient does verbalize to state her blood pressure always low. Distal perfusion is noted. Dopplerable pulses in the lower extremities. Continue ongoing care. The patient is critically ill. ICU critical care recommendations were also appreciated. Patient will be seen by tomorrow.
[2016-10-03] MEDS ORDERED: IPRATROPIUM-ALBUTEROL 3 ML NEB INHALATION PRN (20:22)
[2016-10-03 21:40] LABS: Glucose,Whole Blood 151 mg/dL (75-99)
[2016-10-04 00:16] LABS: Anisocytosis Slight; CH 30.1; CHCM 30.2; HCT 27.2 % (34.0-46.0); HDW 3.51; HGB 8.5 gm/dL (11.4-16.0); Hypochromasia Marked; Large Platelets Flag Moderate; MCH 31.5 pg (25.0-35.0); MCHC 31.2 g/dL (31.0-37.0); MCV 100.9 fL (80.0-100.0); Macrocytosis Moderate; Mean Platelet Volume 12.7; Poikilocytosis Slight; RBC 2.69 m/uL (3.80-5.40); RDW 18.3 % (11.5-15.5); WBC 5.9 k/uL (3.8-10.6)
[2016-10-04 05:05] LABS: Anisocytosis Slight; Basophils % (A) 0 %; CH 29.7; CHCM 28.8; Eosinophils # (A) 0.2 k/uL (0-0.7); Eosinophils % (A) 3 %; HCT 25.4 % (34.0-46.0); HDW 3.43; HGB 7.7 gm/dL (11.4-16.0); Hypochromasia Marked; Large Platelets Flag Moderate; Luc # (Auto) 0.18; Luc % (Auto) 3; Lymphocytes % (A) 16 %; MCH 31.6 pg (25.0-35.0); MCHC 30.3 g/dL (31.0-37.0); MCV 104.3 fL (80.0-100.0); Macrocytosis Moderate; Mean Platelet Volume 12.3; Monocytes # (A) 0.3 k/uL (0-1.0); Monocytes % (A) 5 %; Neutrophils # (A) 4.4 k/uL (1.3-7.7); Neutrophils % (A) 73 %; Poikilocytosis Slight; RBC 2.43 m/uL (3.80-5.40); RDW 18.5 % (11.5-15.5); WBC 6.1 k/uL (3.8-10.6)
[2016-10-04 05:12] LABS: Calcium 8.6 mg/dL (8.4-10.2); Magnesium 2.4 mg/dL (1.6-2.3); Phosphorous 5.3 mg/dL (2.5-4.5); Potassium 3.8 mmol/L (3.5-5.1)
[2016-10-04 06:10] LABS: Large Platelets Present; Manual Review Performed; Polychromasia Present
[2016-10-04 07:07] LABS: Glucose,Whole Blood 155 mg/dL (75-99)
[2016-10-04] MEDS: INSULIN LISPRO (humaLOG) 300 UNIT/3 ML VIAL SQ SCH ×4 (07:08→21:47)
[2016-10-04 07:52] LABS: Glucose,Whole Blood 155 mg/dL (75-99)
--- NOTE | 2016-10-04 07:58 | XR ---
EXAMINATION TYPE: XR chest 1V DATE OF EXAM: 10/04/2016 6:48 AM HISTORY: Congestive heart failure. REFERENCE: Previous study dated 10/03/2016. FINDINGS: There has been a midline sternotomy. There is a multilead pacing device in place on the lef t. The heart is enlarged. Pulmonary vasculature has improved. There continues to be a prominent right ef fusion as well as some airspace disease at the right lung base. IMPRESSION: 1. IMPROVING CHANGES OF CONGESTIVE HEART FAILURE. 2. CARDIOMEGALY. 3. RIGHT-SIDED EFFUSION. THE INCREASED OPACITY IN THE RIGHT HEMITHORAX MAY BE SECONDARY TO FLUID IN T HE MAJOR FISSURE.
[2016-10-04] MEDS: IPRATROPIUM-ALBUTEROL 3 ML NEB INHALATION SCH ×4 (08:13→19:37)
--- NOTE | 2016-10-04 08:28 | P.PN ---
Subjective Principal diagnosis: GI bleed. This is a 65-year-old white female who was recently discharged for GI bleeding who, went back to the ECF and had significant hematochezia and GI bleeding. There was a precipitous strep of hemoglobin and she is now admitted for appropriate treatment. Capsule Endoscopy Is Now Scheduled. She has an underlying history of chronic renal failure on dialysis. She is lucid today. I had a long discussion with her and nursing staff. Objective - Vital Signs Vital signs: Vital Signs Temp 98.4 F 10/04/16 08:00 Pulse 107 H 10/04/16 08:13 Resp 21 10/04/16 08:00 BP 77/63 10/04/16 08:00 Pulse Ox 98 10/04/16 08:00 Intake & Output 10/03/16 10/04/16 10/04/16 18:59 06:59 18:59 Intake Total 1090 480 40 Output Total 0 0 0 Balance 1090 480 40 Weight 84.9 kg Intake: Intake, IV Titration 240 220 40 Amount Sodium Chloride 0.9% 1, 240 220 40 000 ml @ 20 mls/hr IV . Q24H [facility] Rx#:[id number] Oral 850 260 Output: Urine 0 0 0 - Constitutional General appearance: Present: obese - EENT Eyes: Absent: abnormal pupil - Respiratory Respiratory: bilateral: CTA - Cardiovascular Rhythm: regular Heart sounds: normal: S1, S2 - Gastrointestinal General gastrointestinal: Absent: tenderness - Neurologic Neurologic: Present: CNII-XII intact - Musculoskeletal Musculoskeletal: Present: generalized weakness - Labs CBC & Chem 7: 10/04/16 04:27 10/04/16 04:27 Labs: Abnormal Lab Results - Last 24 Hours (Table) 10/03/16 10/03/16 10/03/16 Range/Units 06:35 11:57 12:06 RBC 2.73 L 2.81 L (3.80-5.40) m/uL Hgb 8.3 L 8.8 L (11.4-16.0) gm/dL Hct 28.7 L 28.7 L (34.0-46.0) % MCV 105.2 H D 102.3 H (80.0-100.0) fL MCHC 28.9 L 30.8 L (31.0-37.0) g/dL RDW 19.0 H 18.3 H (11.5-15.5) % Plt Count 73 L 82 L (150-450) k/uL Lymphocytes # 0.8 L (1.0-4.8) k/uL Carbon Dioxide (22-30) mmol/L BUN (7-17) mg/dL Creatinine (0.52-1.04) mg/dL Glucose (74-99) mg/dL POC Glucose (mg/dL) 154 H (75-99) mg/dL Phosphorus (2.5-4.5) mg/dL Magnesium (1.6-2.3) mg/dL 10/03/16 10/03/16 10/03/16 Range/Units 17:32 17:49 21:38 RBC 2.73 L (3.80-5.40) m/uL Hgb 8.6 L (11.4-16.0) gm/dL Hct 28.1 L (34.0-46.0) % MCV 102.9 H (80.0-100.0) fL MCHC 30.6 L (31.0-37.0) g/dL RDW 18.2 H (11.5-15.5) % Plt Count 82 L (150-450) k/uL Lymphocytes # (1.0-4.8) k/uL Carbon Dioxide (22-30) mmol/L BUN (7-17) mg/dL Creatinine (0.52-1.04) mg/dL Glucose (74-99) mg/dL POC Glucose (mg/dL) 163 H 151 H (75-99) mg/dL Phosphorus (2.5-4.5) mg/dL Magnesium (1.6-2.3) mg/dL 10/03/16 10/04/16 10/04/16 Range/Units 23:58 04:27 04:27 RBC 2.69 L 2.43 L (3.80-5.40) m/uL Hgb 8.5 L 7.7 L (11.4-16.0) gm/dL Hct 27.2 L 25.4 L (34.0-46.0) % MCV 100.9 H 104.3 H (80.0-100.0) fL MCHC 30.3 L (31.0-37.0) g/dL RDW 18.3 H 18.5 H (11.5-15.5) % Plt Count 80 L 79 L (150-450) k/uL Lymphocytes # (1.0-4.8) k/uL Carbon Dioxide 20 L (22-30) mmol/L BUN 36 H (7-17) mg/dL Creatinine 5.70 H* (0.52-1.04) mg/dL Glucose 121 H (74-99) mg/dL POC Glucose (mg/dL) (75-99) mg/dL Phosphorus 5.3 H (2.5-4.5) mg/dL Magnesium 2.4 H (1.6-2.3) mg/dL 10/04/16 10/04/16 Range/Units 07:05 07:50 RBC (3.80-5.40) m/uL Hgb (11.4-16.0) gm/dL Hct (34.0-46.0) % MCV (80.0-100.0) fL MCHC (31.0-37.0) g/dL RDW (11.5-15.5) % Plt Count (150-450) k/uL Lymphocytes # (1.0-4.8) k/uL Carbon Dioxide (22-30) mmol/L BUN (7-17) mg/dL Creatinine (0.52-1.04) mg/dL Glucose (74-99) mg/dL POC Glucose (mg/dL) 155 H 155 H (75-99) mg/dL Phosphorus (2.5-4.5) mg/dL Magnesium (1.6-2.3) mg/dL Assessment and Plan (1) Anemia Status: Acute (2) Hematochezia Status: Acute (3) Acute GI bleeding Status: Acute (4) Diabetes 1.5, managed as type 2 Status: Acute (5) Hx of CABG Status: Acute (6) Renal failure (ARF), acute on chronic Status: Acute Plan: The patient is scheduled for a capsule endoscopy today. Check CBC in a.m. Appreciate GI input. Nephrology has been consulted. See orders otherwise. Time with Patient: Greater than 30
[2016-10-04] MEDS: PANTOPRAZOLE 40 MG/10 ML VIAL IV SCH ×2 (11:10→21:04)
--- NOTE | 2016-10-04 11:44 | P.PN ---
Subjective Principal diagnosis: GI bleed This is a 65-year-old female with history of multiple medical problems including chronic renal failure, on hemodialysis, history of coronary artery disease, congestive heart failure, diabetes, previous myocardial infarction, and previous episodes of GI bleeding. Workup in the past for GI bleeding specifically during her last admission failed to demonstrate the exact site of bleeding. Patient is also known to have chronic hypotension and history of CABG 6 vessels and history of aortic valve replacement. History of AICD placement back in 2013. Patient was recently discharged back to a longterm after being treated for GI bleeding, and she was seen by many consultants during her last admission. She presented again to the ER with burgundy colored stools and lower abdominal pain and discomfort. This all started 2 days ago while she was at [facility] [place]. Apparently her issue with GI bleeding and anemia dates back for the last few months. Recent EGD done by Dr. Romero on September 23 showed small hiatal hernia, mild gastritis, and no obvious evidence of active bleeding. The plan was to proceed with small bowel capsule endoscopy if her bleeding continues or persists. Her last colonoscopy was done by Dr. Gregorio in March of 2016. And she was found to have at the time some diverticulosis. Considering the presentation of melanotic stools and hypotension, not to mention that the patient is chronically hypotensive, and her blood pressures in the past have always been in the 70s and 80s systolic. According to her this is about her baseline. At any rate considering the patient was admitted to the ICU, she was seen consultation Dr. Rollins. She was also seen by GI services and a capsule study has been initiated. The patient is seen again on 10/04/2016 in follow-up. She is awake and alert. He denies any significant abdominal discomfort at this time. She has been hemodynamically stable. Not requiring any pressors. Her hemoglobin is trending down however. Current hemoglobin 7.7. She also has a history of chronic renal failure and is to receive hemodialysis today. Current creatinine 5.70. She is maintaining good O2 saturations in the mid 90s on 2 L/m per nasal cannula. Her chest x-ray does show some evidence of loculated fluid in the right lung and some mild congestive heart failure. She denies any worsening shortness of breath, cough or congestion. Objective - Vital Signs Vital signs: Vital Signs Temp 99.0 F 10/04/16 11:00 Pulse 106 H 10/04/16 11:00 Resp 15 10/04/16 11:00 BP 68/39 10/04/16 11:00 Pulse Ox 99 10/04/16 11:00 Intake & Output 10/03/16 10/04/16 10/04/16 18:59 06:59 18:59 Intake Total 1090 480 100 Output Total 0 0 3000 Balance 1090 480 -2900 Weight 84.9 kg 84.9 kg Intake: Intake, IV Titration 240 220 100 Amount Sodium Chloride 0.9% 1, 240 220 100 000 ml @ 20 mls/hr IV . Q24H [facility] Rx#:[id number] Oral 850 260 Output: Urine 0 0 0 Stool 3000 - Exam GENERAL EXAM: Pallor. Alert, active, comfortable in no apparent distress. HEAD: Normocephalic. EYES: Normal reaction of pupils, equal size. NOSE: Clear with pink turbinates. THROAT: No erythema or exudates. NECK: No masses, no JVD. CHEST: No chest wall deformity. LUNGS: Equal air entry with pickles in the posterior bases more so on the right.. CVS: S1 and S2 normal with no audible murmurs, regular rhythm. ABDOMEN: Soft, normal bowel sounds, no guarding or rigidity. Extremities: There is trace peripheral edema. No clubbing, no cyanosis. Peripheral pulses are intact. - Labs CBC & Chem 7: 10/04/16 04:27 10/04/16 04:27 Labs: Abnormal Lab Results - Last 24 Hours (Table) 10/03/16 10/03/16 10/03/16 Range/Units 11:57 12:06 17:32 RBC 2.81 L (3.80-5.40) m/uL Hgb 8.8 L (11.4-16.0) gm/dL Hct 28.7 L (34.0-46.0) % MCV 102.3 H (80.0-100.0) fL MCHC 30.8 L (31.0-37.0) g/dL RDW 18.3 H (11.5-15.5) % Plt Count 82 L (150-450) k/uL Carbon Dioxide (22-30) mmol/L BUN (7-17) mg/dL Creatinine (0.52-1.04) mg/dL Glucose (74-99) mg/dL POC Glucose (mg/dL) 154 H 163 H (75-99) mg/dL Phosphorus (2.5-4.5) mg/dL Magnesium (1.6-2.3) mg/dL 10/03/16 10/03/16 10/03/16 Range/Units 17:49 21:38 23:58 RBC 2.73 L 2.69 L (3.80-5.40) m/uL Hgb 8.6 L 8.5 L (11.4-16.0) gm/dL Hct 28.1 L 27.2 L (34.0-46.0) % MCV 102.9 H 100.9 H (80.0-100.0) fL MCHC 30.6 L (31.0-37.0) g/dL RDW 18.2 H 18.3 H (11.5-15.5) % Plt Count 82 L 80 L (150-450) k/uL Carbon Dioxide (22-30) mmol/L BUN (7-17) mg/dL Creatinine (0.52-1.04) mg/dL Glucose (74-99) mg/dL POC Glucose (mg/dL) 151 H (75-99) mg/dL Phosphorus (2.5-4.5) mg/dL Magnesium (1.6-2.3) mg/dL 10/04/16 10/04/16 10/04/16 Range/Units 04:27 04:27 07:05 RBC 2.43 L (3.80-5.40) m/uL Hgb 7.7 L (11.4-16.0) gm/dL Hct 25.4 L (34.0-46.0) % MCV 104.3 H (80.0-100.0) fL MCHC 30.3 L (31.0-37.0) g/dL RDW 18.5 H (11.5-15.5) % Plt Count 79 L (150-450) k/uL Carbon Dioxide 20 L (22-30) mmol/L BUN 36 H (7-17) mg/dL Creatinine 5.70 H* (0.52-1.04) mg/dL Glucose 121 H (74-99) mg/dL POC Glucose (mg/dL) 155 H (75-99) mg/dL Phosphorus 5.3 H (2.5-4.5) mg/dL Magnesium 2.4 H (1.6-2.3) mg/dL 10/04/16 Range/Units 07:50 RBC (3.80-5.40) m/uL Hgb (11.4-16.0) gm/dL Hct (34.0-46.0) % MCV (80.0-100.0) fL MCHC (31.0-37.0) g/dL RDW (11.5-15.5) % Plt Count (150-450) k/uL Carbon Dioxide (22-30) mmol/L BUN (7-17) mg/dL Creatinine (0.52-1.04) mg/dL Glucose (74-99) mg/dL POC Glucose (mg/dL) 155 H (75-99) mg/dL Phosphorus (2.5-4.5) mg/dL Magnesium (1.6-2.3) mg/dL Assessment and Plan Plan: Impression: 1 acute GI bleeding with presentation of melanotic stools, suggestive of possible upper GI bleeding although her recent workup and EGD was negative for active bleeding. Patient had a previous colonoscopy in the last 6 months, and that showed evidence of diverticulosis. 2 end-stage renal disease, on hemodialysis, patient was already seen by nephrology on consultation, and I believe dialysis is being considered possibly today or tomorrow. 3 acute congestive heart failure and fluid overload secondary to end-stage renal disease, patient will improve with dialysis and ultrafiltration. 4 history of multiple comorbidities including coronary artery disease and previous CABG previous AICD placement, previous aortic valve replacement. History of chronic hypotension, most likely related to her vasculopathy, history of CVA in 2010, history of aortic stenosis history of macular degeneration. Plan: The patient was seen and evaluated by Dr. Hills whom the patient is well-known to. She is currently stable from the critical care standpoint. She remains off pressors at this point. Capsule study is in progress. She does continue with burgundy liquid stools. We will plan to transfuse 1 unit of packed red blood cells during her hemodialysis treatment today. We'll continue to monitor and make further recommendations based on her clinical status.
[2016-10-04 11:47] LABS: Glucose,Whole Blood 144 mg/dL (75-99)
[2016-10-04] MEDS ORDERED: DESMOPRESSIN INJ 20 MCG in SODIUM CHLORIDE 0.9% 50 ML IVPB ONE (11:57)
[2016-10-04] MEDS: HYDROcodone/APAP 10-325MG 1 EACH TAB PO PRN ×2 (12:10→22:16)
[2016-10-04 12:33] LABS: Glucose,Whole Blood 125 mg/dL (75-99)
[2016-10-04 13:52] LABS: Hepatitis B Surface Ag Index 0.05
[2016-10-04 14:18] LABS: Hepatitis B Surface Antibody Negative (Negative)
[2016-10-04 15:53] LABS: Anisocytosis Slight; Basophils % (A) 1 %; CH 29.9; CHCM 31.4; Eosinophils # (A) 0.1 k/uL (0-0.7); Eosinophils % (A) 2 %; HCT 26.5 % (34.0-46.0); HDW 3.57; HGB 8.3 gm/dL (11.4-16.0); Hypochromasia Moderate; Large Platelets Flag Slight; Luc % (Auto) 2; Lymphocytes # (A) 0.7 k/uL (1.0-4.8); Lymphocytes % (A) 11 %; MCH 30.1 pg (25.0-35.0); MCHC 31.3 g/dL (31.0-37.0); Macrocytosis Slight; Mean Platelet Volume 11.8; Monocytes # (A) 0.3 k/uL (0-1.0); Monocytes % (A) 4 %; Neutrophils % (A) 81 %; Poikilocytosis Slight; RBC 2.76 m/uL (3.80-5.40); WBC 6.2 k/uL (3.8-10.6); WBC (Perox) 6.71
[2016-10-04 15:55] LABS: MCV 96.2 fL (80.0-100.0)
[2016-10-04] MEDS ORDERED: GELATIN SPONGE,ABSORB (SMALL) 1 EACH SPONGE ONE (16:00)
[2016-10-04 16:14] LABS: Polychromasia Present
--- NOTE | 2016-10-04 16:23 | PN ---
Patient is seen on dialysis. She is tolerating her treatment well. Her systolic blood pressure reading is about 60 to 70; however, this is inaccurate, as patient is awake, comfortable and talking. She states that normally they are not able to get a blood pressure as outpatient on dialysis. Patient's hemoglobin was 7.7 and she will be receiving 2 units packed RBCs. Patient continues to have maroon-colored bowel movements. She has had a capsule endoscopy, and the capsule is still inside. This will take another 6 to 8 hours. On examination, patient is on dialysis, heart rate about 107 per minute. She is afebrile. EXAMINATION OF THE HEART: S1 and S2. EXAMINATION OF LUNGS: Decreased breath sounds in the bases. ABDOMEN: Soft, nontender. Examination of lower extremities shows edema 1+ bilaterally. Labs show sodium 140, potassium 3.8. Hemoglobin at 7.7 g/dL. ASSESSMENT: 1. End-stage renal disease, on hemodialysis on a Tuesday, Tuesday, Tuesday schedule. Will plan for about 1 to 2 L of ultrafiltration with dialysis and transfuse 2 units packed RBCs with dialysis. 2. Gastrointestinal bleed with ongoing bleeding noted. Will give one dose of DDAVP and await results of capsule endoscopy. Patient is being followed by GI. 3. Generalized debility. 4. Chronic kidney disease bone mineral disorder. PLAN: DDAVP x1. Follow up on results of the capsule endoscopy.
--- NOTE | 2016-10-04 16:52 | PN ---
Patient 65-year-old white female admitted the hospital with acute GI bleed. She was having black tarry stools/maroon colored stools for a couple of days just prior to hospitalization. She was just discharged from the hospital at which time she was admitted for similar reasons. She underwent an upper endoscopy by Dr. Romero a week ago and was noted to have a small hiatal hernia and mild gastritis. The last colonoscopy by Dr. Gregorio in March 2016 showed some diverticulosis. Because of ongoing gastrointestinal bleeding, the patient was scheduled for a small bowel capsule endoscopy that was done at 7:30 this morning. In the meantime, she had approximately 1000 mL of maroon colored liquid stool in her ( ). She denies any abdominal pain. Reports no nausea or vomiting. On physical examination, she appears comfortable in no apparent distress. Vitals as are stable. Blood pressure is 70/46, pulse rate 98, and temperature 99. HEENT EXAMINATION: Unremarkable. Conjunctivae pink. Sclerae anicteric. Oral cavity, no lesions. NECK: No JVD or lymph node enlargement. Lymph node enlargement. CHEST: Clear to auscultation. HEART: Regular rate and rhythm. ABDOMEN: Soft and nontender, nondistended. Bowel sounds are positive. No organomegaly. EXTREMITIES: No pedal edema. SKIN: No rashes. NEURO: Alert and oriented x three. No focal deficits. Labs from today: Hemoglobin 7.7, WBC was 6.1, platelets are 79,000. BUN is 36, creatinine 5.7. IMPRESSION: 1. Acute gastrointestinal bleed, possibly small bowel in etiology. Recent upper endoscopy a week ago by Dr. Romero was unremarkable other than mild gastritis and a small hiatal hernia, colonoscopy March 2016 showed diverticulosis. She is undergoing small bowel capsule endoscopy at this time. 2. Anemia secondary to gastrointestinal bleed. The patient is going to receive 2 units of PRBC transfusion during her dialysis today. 3. End-stage renal disease on hemodialysis. RECOMMENDATIONS: 1. Agree with PRBC transfusion. 2. She can have a clear liquid diet today. 3. Once the capsule endoscopy is done, we will review the results and further recommendations will follow. Thank you for this consultation.
[2016-10-04 17:07] LABS: Glucose,Whole Blood 142 mg/dL (75-99)
[2016-10-04] MEDS: SODIUM CHLORIDE 0.9% 1,000 ML IV SCH (19:36)
[2016-10-04 22:07] LABS: Glucose,Whole Blood 221 mg/dL (75-99)
[2016-10-05 01:24] LABS: Anisocytosis Slight; CH 29.7; CHCM 32.2; HCT 29.4 % (34.0-46.0); HDW 3.92; HGB 9.2 gm/dL (11.4-16.0); Hypochromasia Moderate; Large Platelets Flag Marked; MCH 29.5 pg (25.0-35.0); MCHC 31.4 g/dL (31.0-37.0); MCV 93.7 fL (80.0-100.0); Macrocytosis Slight; Mean Platelet Volume 13.8; Poikilocytosis Slight; RBC 3.14 m/uL (3.80-5.40); RDW 18.9 % (11.5-15.5); WBC 6.1 k/uL (3.8-10.6)
[2016-10-05 05:10] LABS: Anisocytosis Slight; Basophils % (A) 1 %; CH 29.7; Eosinophils # (A) 0.1 k/uL (0-0.7); Eosinophils % (A) 2 %; HCT 28.9 % (34.0-46.0); HDW 3.99; HGB 9.1 gm/dL (11.4-16.0); Hypochromasia Moderate; Large Platelets Flag Moderate; Luc # (Auto) 0.09; Luc % (Auto) 2; Lymphocytes # (A) 0.9 k/uL (1.0-4.8); Lymphocytes % (A) 18 %; MCH 29.6 pg (25.0-35.0); MCHC 31.4 g/dL (31.0-37.0); MCV 94.1 fL (80.0-100.0); Macrocytosis Slight; Mean Platelet Volume 13.3; Monocytes # (A) 0.3 k/uL (0-1.0); Monocytes % (A) 7 %; Neutrophils # (A) 3.7 k/uL (1.3-7.7); Neutrophils % (A) 71 %; Poikilocytosis Slight; RBC 3.07 m/uL (3.80-5.40); WBC 5.2 k/uL (3.8-10.6)
[2016-10-05 05:22] LABS: Calcium 8.5 mg/dL (8.4-10.2); Magnesium 2.2 mg/dL (1.6-2.3); Phosphorous 4.5 mg/dL (2.5-4.5); Potassium 3.3 mmol/L (3.5-5.1); Total Protein 5.1 g/dL (6.3-8.2)
--- NOTE | 2016-10-05 07:24 | XR ---
EXAMINATION TYPE: XR chest 1V DATE OF EXAM: 10/05/2016 6:37 AM CLINICAL HISTORY: Difficulty breathing and CHF progress study. TECHNIQUE: Single AP portable upright view of the chest is obtained. COMPARISON: Chest x-ray from one day earlier FINDINGS: Post CABG changes with mediastinal clips and sternal wires is redemonstrated. There is card iomegaly with multi lead pacemaker/AICD redemonstrated. There is small right pleural effusion or flui d collection redemonstrated. There is associated right mid and basilar atelectasis and/or infiltrate. Left lung remains clear. There is atherosclerotic and ectatic thoracic aorta redemonstrated. Chronic thickening of right paratracheal stripe is noted. Osseous structures are intact. IMPRESSION: Overall stable findings, cardiomegaly with persistent small to moderate-sized right ple ural effusion and associated right lower lung infiltrate and/or atelectasis all redemonstrated.
[2016-10-05 07:36] LABS: Glucose,Whole Blood 127 mg/dL (75-99)
[2016-10-05] MEDS: PANTOPRAZOLE 40 MG/10 ML VIAL IV SCH ×2 (07:47→20:16)
[2016-10-05] MEDS: INSULIN LISPRO (humaLOG) 300 UNIT/3 ML VIAL SQ SCH ×4 (07:47→22:00)
[2016-10-05] MEDS: IPRATROPIUM-ALBUTEROL 3 ML NEB INHALATION SCH ×4 (08:11→20:42)
--- NOTE | 2016-10-05 08:13 | P.PN ---
Subjective Principal diagnosis: GI bleed. The patient is here for recurrent GI bleed. Capsule endoscopy is pending. She states moderate pain today but fairly well controlled. She seems lucid. No agitation today. No significant nausea, vomiting or diarrhea. Clear liquids are tolerated. Objective - Vital Signs Vital signs: Vital Signs Temp 98.9 F 10/05/16 04:00 Pulse 110 H 10/05/16 07:40 Resp 22 10/05/16 07:40 BP 45/31 10/04/16 19:00 Pulse Ox 97 10/05/16 07:00 Intake & Output 10/04/16 10/05/16 10/05/16 18:59 06:59 18:59 Intake Total 1360 1010 20 Output Total 7100 200 Balance -5740 1010 -180 Weight 84.9 kg 84.5 kg Intake: IV 450 150 PRBC 450 PRBC at 150 150 Intake, IV Titration 290 240 20 Amount Desmopressin Inj 20 mcg 50 In Sodium Chloride 0.9% 50 ml @ 200 mls/hr IVPB ONCE ONE Rx#:[id number] Sodium Chloride 0.9% 1, 240 240 20 000 ml @ 20 mls/hr IV . Q24H [facility] Rx#:[id number] Blood Product 620 620 Rc As-1 Unit 0 310 [id number] Rc As-1 Unit 310 [id number] Rc As-1 Unit 310 [id number] Rc As-1 Unit 310 [id number] Output: Urine 100 Stool 5000 200 Other 2000 Other: # Bowel Movements 1 - Constitutional General appearance: Present: obese - EENT Eyes: Absent: abnormal pupil - Respiratory Respiratory: bilateral: diminished - Cardiovascular Rhythm: irregularly irregular Heart sounds: normal: S1, S2 - Gastrointestinal General gastrointestinal: Present: soft. Absent: tenderness - Integumentary Integumentary: Absent: rash - Neurologic Neurologic: Present: CNII-XII intact - Musculoskeletal Musculoskeletal: Present: generalized weakness - Labs CBC & Chem 7: 10/05/16 04:39 10/05/16 04:39 Labs: Abnormal Lab Results - Last 24 Hours (Table) 10/04/16 10/04/16 10/04/16 Range/Units 11:45 12:31 15:15 RBC 2.76 L (3.80-5.40) m/uL Hgb 8.3 L (11.4-16.0) gm/dL Hct 26.5 L (34.0-46.0) % RDW 18.0 H (11.5-15.5) % Plt Count 97 L (150-450) k/uL Lymphocytes # 0.7 L (1.0-4.8) k/uL Potassium (3.5-5.1) mmol/L BUN (7-17) mg/dL Creatinine (0.52-1.04) mg/dL Glucose (74-99) mg/dL POC Glucose (mg/dL) 144 H 125 H (75-99) mg/dL Total Protein (6.3-8.2) g/dL Albumin (3.5-5.0) g/dL 10/04/16 10/04/16 10/05/16 Range/Units 17:05 21:46 01:12 RBC 3.14 L (3.80-5.40) m/uL Hgb 9.2 L (11.4-16.0) gm/dL Hct 29.4 L (34.0-46.0) % RDW 18.9 H (11.5-15.5) % Plt Count 71 L (150-450) k/uL Lymphocytes # (1.0-4.8) k/uL Potassium (3.5-5.1) mmol/L BUN (7-17) mg/dL Creatinine (0.52-1.04) mg/dL Glucose (74-99) mg/dL POC Glucose (mg/dL) 142 H 221 H (75-99) mg/dL Total Protein (6.3-8.2) g/dL Albumin (3.5-5.0) g/dL 10/05/16 10/05/16 10/05/16 Range/Units 04:39 04:39 07:26 RBC 3.07 L (3.80-5.40) m/uL Hgb 9.1 L (11.4-16.0) gm/dL Hct 28.9 L (34.0-46.0) % RDW 19.0 H (11.5-15.5) % Plt Count 74 L (150-450) k/uL Lymphocytes # 0.9 L (1.0-4.8) k/uL Potassium 3.3 L (3.5-5.1) mmol/L BUN 24 H (7-17) mg/dL Creatinine 3.90 H (0.52-1.04) mg/dL Glucose 104 H (74-99) mg/dL POC Glucose (mg/dL) 127 H (75-99) mg/dL Total Protein 5.1 L (6.3-8.2) g/dL Albumin 2.6 L (3.5-5.0) g/dL Assessment and Plan (1) Anemia Status: Acute (2) Hematochezia Status: Acute (3) Acute GI bleeding Status: Acute (4) Diabetes 1.5, managed as type 2 Status: Acute (5) Hx of CABG Status: Acute (6) Renal failure (ARF), acute on chronic Status: Acute Plan: Check CBC and CPK in a.m. Await capsule endoscopy. Appreciate pulmonology, nephrology and GI input. I did have a long discussion with the patient as far as regarding possibilities of surgery versus finding nothing in endoscopy procedure. Time with Patient: Less than 30
[2016-10-05] MEDS: HYDROcodone/APAP 10-325MG 1 EACH TAB PO PRN ×2 (09:00→17:38)
--- NOTE | 2016-10-05 09:46 | P.PN ---
Subjective Progress note dated 10/05/2016 This is a patient who was seen again today. Seen yesterday with my nurse practitioner. She's doing well. Had hemodialysis performed. The patient ended up receiving 4 units of blood totally. Also receiving 1 dose of desmopressin. Also received is receiving appointment 9 IV at [facility]. The patient seemed to be relatively stable. Likely later today, she remains stable she can move out to the floor. She is getting O2 at 2 L. No complaints today. Looks well. The patient has a history of multiple medical problems including acute GI bleeding diverticulosis end-stage renal disease on hemodialysis CHF CAD previous bypass grafting AICD placement aortic valve replacement chronic hypotension CVA and aortic stenosis. Objective - Vital Signs Vital signs: Vital Signs Temp 98.9 F 10/05/16 04:00 Pulse 110 H 10/05/16 07:40 Resp 22 10/05/16 07:40 BP 45/31 10/04/16 19:00 Pulse Ox 97 10/05/16 08:10 Intake & Output 10/04/16 10/05/16 10/05/16 18:59 06:59 18:59 Intake Total 1360 1010 20 Output Total 7100 200 Balance -5740 1010 -180 Weight 84.9 kg 84.5 kg Intake: IV 450 150 PRBC 450 PRBC at 150 150 Intake, IV Titration 290 240 20 Amount Desmopressin Inj 20 mcg 50 In Sodium Chloride 0.9% 50 ml @ 200 mls/hr IVPB ONCE ONE Rx#:[id number] Sodium Chloride 0.9% 1, 240 240 20 000 ml @ 20 mls/hr IV . Q24H [facility] Rx#:[id number] Blood Product 620 620 Rc As-1 Unit 0 310 [id number] Rc As-1 Unit 310 [id number] Rc As-1 Unit 310 [id number] Rc As-1 Unit 310 [id number] Output: Urine 100 Stool 5000 200 Other 2000 Other: # Bowel Movements 1 - Exam No acute distress, oriented 3. Awake and alert. Is unremarkable. Mucous membranes are moist. No oral lesions. Neck supple. Full range of motion. No adenopathy. Cardiovascular examination reveals regular rhythm rate. S1-S2 normal. No distinct murmur noted. Lungs are clear breath sounds are equal. No wheezes rhonchi or crackles. Abdomen soft bowel sounds are heard. Extremities are intact. - Labs CBC & Chem 7: 10/05/16 04:39 10/05/16 04:39 Labs: Abnormal Lab Results - Last 24 Hours (Table) 10/04/16 10/04/16 10/04/16 Range/Units 11:45 12:31 15:15 RBC 2.76 L (3.80-5.40) m/uL Hgb 8.3 L (11.4-16.0) gm/dL Hct 26.5 L (34.0-46.0) % RDW 18.0 H (11.5-15.5) % Plt Count 97 L (150-450) k/uL Lymphocytes # 0.7 L (1.0-4.8) k/uL Potassium (3.5-5.1) mmol/L BUN (7-17) mg/dL Creatinine (0.52-1.04) mg/dL Glucose (74-99) mg/dL POC Glucose (mg/dL) 144 H 125 H (75-99) mg/dL Total Protein (6.3-8.2) g/dL Albumin (3.5-5.0) g/dL 10/04/16 10/04/16 10/05/16 Range/Units 17:05 21:46 01:12 RBC 3.14 L (3.80-5.40) m/uL Hgb 9.2 L (11.4-16.0) gm/dL Hct 29.4 L (34.0-46.0) % RDW 18.9 H (11.5-15.5) % Plt Count 71 L (150-450) k/uL Lymphocytes # (1.0-4.8) k/uL Potassium (3.5-5.1) mmol/L BUN (7-17) mg/dL Creatinine (0.52-1.04) mg/dL Glucose (74-99) mg/dL POC Glucose (mg/dL) 142 H 221 H (75-99) mg/dL Total Protein (6.3-8.2) g/dL Albumin (3.5-5.0) g/dL 10/05/16 10/05/16 10/05/16 Range/Units 04:39 04:39 07:26 RBC 3.07 L (3.80-5.40) m/uL Hgb 9.1 L (11.4-16.0) gm/dL Hct 28.9 L (34.0-46.0) % RDW 19.0 H (11.5-15.5) % Plt Count 74 L (150-450) k/uL Lymphocytes # 0.9 L (1.0-4.8) k/uL Potassium 3.3 L (3.5-5.1) mmol/L BUN 24 H (7-17) mg/dL Creatinine 3.90 H (0.52-1.04) mg/dL Glucose 104 H (74-99) mg/dL POC Glucose (mg/dL) 127 H (75-99) mg/dL Total Protein 5.1 L (6.3-8.2) g/dL Albumin 2.6 L (3.5-5.0) g/dL Assessment and Plan (1) Anemia Status: Acute (2) Lower gastrointestinal hemorrhage Status: Acute (3) Renal failure Status: Acute (4) Acute GI bleeding Status: Acute (5) Congestive heart failure (CHF) Status: Acute (6) GI hemorrhage Status: Acute (7) Hx of CABG Status: Acute (8) Hx of aortic valve replacement Status: Acute (9) Hyperlipemia Status: Acute (10) Hypotension Status: Acute (11) Unstable angina pectoris Status: Acute Plan: Plan dated 10/05/2016 The patient is doing well. We'll continue to follow closely. We'll review the labs x-rays medications. Later today if the patient remains stable she go onto the floor. No additional recommendations are made. Prognosis is guarded. Time with Patient: Less than 30
--- NOTE | 2016-10-05 09:47 | P.PN ---
Subjective Principal diagnosis: GI bleed 65-year-old female admitted with acute GI bleed with mixed maroon/black tarry stools. Capsule endoscopy performed yesterday results are pending. EGD earlier this month noted to reported a small hiatal hernia mild gastritis. Colonoscopy March 2016 diverticulosis. Fecal management system in place no showing maroon colored liquid bowel movement. Received 4 units of blood yesterday current hemoglobin 9.1. Platelets 74,000. Denies epigastric pain. Objective - Vital Signs Vital signs: Vital Signs Temp 98.9 F 10/05/16 04:00 Pulse 110 H 10/05/16 07:40 Resp 22 10/05/16 07:40 BP 45/31 10/04/16 19:00 Pulse Ox 97 10/05/16 08:10 Intake & Output 10/04/16 10/05/16 10/05/16 18:59 06:59 18:59 Intake Total 1360 1010 20 Output Total 7100 200 Balance -5740 1010 -180 Weight 84.9 kg 84.5 kg Intake: IV 450 150 PRBC 450 PRBC at 150 150 Intake, IV Titration 290 240 20 Amount Desmopressin Inj 20 mcg 50 In Sodium Chloride 0.9% 50 ml @ 200 mls/hr IVPB ONCE ONE Rx#:[id number] Sodium Chloride 0.9% 1, 240 240 20 000 ml @ 20 mls/hr IV . Q24H [facility] Rx#:[id number] Blood Product 620 620 Rc As-1 Unit 0 310 [id number] Rc As-1 Unit 310 [id number] Rc As-1 Unit 310 [id number] Rc As-1 Unit 310 [id number] Output: Urine 100 Stool 5000 200 Other 2000 Other: # Bowel Movements 1 - Exam General appearance: The patient is alert, oriented, in no acute distress. HET: Head is normocephalic and atraumatic. Pupils are equal and reactive. Oropharynx is clear without lesions. Neck: Supple without lymphadenopathy. Trachea midline. Heart: S1 S2. Regular rate and rhythm. Lungs: No crackles or wheezes are heard. Abdomen: Soft, nontender, nondistended with bowel sounds. No peritoneal signs. No palpable organomegaly or masses. Extremities: Normal skin color and turgor. No cyanosis, rash, ulceration, clubbing, or edema. Radial and pedal pulses are 2/4 bilaterally. Fecal management system with scant amount of liquid maroon colored stool. Neurological: No focal deficits. Strength and sensation are grossly intact. - Labs CBC & Chem 7: 10/05/16 04:39 10/05/16 04:39 Labs: Abnormal Lab Results - Last 24 Hours (Table) 10/04/16 10/04/16 10/04/16 Range/Units 11:45 12:31 15:15 RBC 2.76 L (3.80-5.40) m/uL Hgb 8.3 L (11.4-16.0) gm/dL Hct 26.5 L (34.0-46.0) % RDW 18.0 H (11.5-15.5) % Plt Count 97 L (150-450) k/uL Lymphocytes # 0.7 L (1.0-4.8) k/uL Potassium (3.5-5.1) mmol/L BUN (7-17) mg/dL Creatinine (0.52-1.04) mg/dL Glucose (74-99) mg/dL POC Glucose (mg/dL) 144 H 125 H (75-99) mg/dL Total Protein (6.3-8.2) g/dL Albumin (3.5-5.0) g/dL 10/04/16 10/04/16 10/05/16 Range/Units 17:05 21:46 01:12 RBC 3.14 L (3.80-5.40) m/uL Hgb 9.2 L (11.4-16.0) gm/dL Hct 29.4 L (34.0-46.0) % RDW 18.9 H (11.5-15.5) % Plt Count 71 L (150-450) k/uL Lymphocytes # (1.0-4.8) k/uL Potassium (3.5-5.1) mmol/L BUN (7-17) mg/dL Creatinine (0.52-1.04) mg/dL Glucose (74-99) mg/dL POC Glucose (mg/dL) 142 H 221 H (75-99) mg/dL Total Protein (6.3-8.2) g/dL Albumin (3.5-5.0) g/dL 10/05/16 10/05/1617 Range/Units 04:39 04:39 07:26 RBC 3.07 L (3.80-5.40) m/uL Hgb 9.1 L (11.4-16.0) gm/dL Hct 28.9 L (34.0-46.0) % RDW 19.0 H (11.5-15.5) % Plt Count 74 L (150-450) k/uL Lymphocytes # 0.9 L (1.0-4.8) k/uL Potassium 3.3 L (3.5-5.1) mmol/L BUN 24 H (7-17) mg/dL Creatinine 3.90 H (0.52-1.04) mg/dL Glucose 104 H (74-99) mg/dL POC Glucose (mg/dL) 127 H (75-99) mg/dL Total Protein 5.1 L (6.3-8.2) g/dL Albumin 2.6 L (3.5-5.0) g/dL Assessment and Plan Plan: Impression: 1. Acute GI bleed possibly small bowel in etiology status post capsule endoscopy results are pending. Status post recent EGD with findings of mild gastritis and small hiatal hernia, colonoscopy March 2016 showed diverticulosis. 2. Acute on chronic anemia with component of acute blood loss. 3. End-stage renal disease hemodialysis. Recommendations: 1. Continue CBC monitoring. Advance to full liquid diet. We'll review capsule study results and report findings. Remove FMS. We'll continue to follow with you. Assessment and plan of care discussed with Dr. Vanegas.
[2016-10-05] MEDS ORDERED: POTASSIUM CHLORIDE ER 20 MEQ TAB.ER PO STA (10:56)
[2016-10-05] MEDS ORDERED: DESMOPRESSIN INJ 20 MCG in SODIUM CHLORIDE 0.9% 50 ML IVPB ONE (10:56)
[2016-10-05] MEDS: FOLIC ACID-VIT B COMPLEX-VIT C 1 CAP PO SCH (11:13)
[2016-10-05] MEDS: HYDROmorphone 1 MG/ML 1 ML SYRINGE IVP PRN (11:37)
[2016-10-05 11:47] LABS: Glucose,Whole Blood 157 mg/dL (75-99)
[2016-10-05 12:46] LABS: Anisocytosis Slight; Basophils % (A) 0 %; CH 29.4; CHCM 31.5; Eosinophils # (A) 0.1 k/uL (0-0.7); Eosinophils % (A) 2 %; HCT 29.7 % (34.0-46.0); HDW 4.01; HGB 9.2 gm/dL (11.4-16.0); Hypochromasia Marked; Large Platelets Flag Moderate; Luc # (Auto) 0.12; Luc % (Auto) 2; Lymphocytes # (A) 0.8 k/uL (1.0-4.8); Lymphocytes % (A) 13 %; MCH 29.4 pg (25.0-35.0); MCHC 31.1 g/dL (31.0-37.0); MCV 94.7 fL (80.0-100.0); Macrocytosis Slight; Mean Platelet Volume 11.6; Monocytes # (A) 0.3 k/uL (0-1.0); Monocytes % (A) 4 %; Neutrophils # (A) 4.6 k/uL (1.3-7.7); Neutrophils % (A) 78 %; Poikilocytosis Moderate; RBC 3.14 m/uL (3.80-5.40); RDW 19.1 % (11.5-15.5); WBC 5.9 k/uL (3.8-10.6); WBC (Perox) 6.25
[2016-10-05] MEDS: CALCIUM ACETATE 667 MG CAP PO SCH ×2 (13:22→17:39)
[2016-10-05] MEDS: SODIUM CHLORIDE 0.9% 1,000 ML IV SCH (17:39)
[2016-10-05 17:45] LABS: Glucose,Whole Blood 265 mg/dL (75-99)
[2016-10-05 17:45] LABS: Glucose,Whole Blood 248 mg/dL (75-99)
[2016-10-05 19:39] LABS: Anisocytosis Slight; CH 29.1; CHCM 30.8; HCT 31.2 % (34.0-46.0); HGB 9.7 gm/dL (11.4-16.0); Hypochromasia Marked; Large Platelets Flag Slight; MCH 29.9 pg (25.0-35.0); MCHC 31.2 g/dL (31.0-37.0); Macrocytosis Slight; Mean Platelet Volume 11.1; Poikilocytosis Slight; RBC 3.24 m/uL (3.80-5.40); RDW 18.9 % (11.5-15.5); WBC 6.2 k/uL (3.8-10.6)
--- NOTE | 2016-10-05 21:04 | PN ---
Patient is seen for followup for end-stage renal disease. She was readmitted to the hospital with GI bleed and continues to have maroon-colored stools. She has a rectal tube in. Patient received 4 units packed RBCs yesterday. Her hemoglobin today is at 9.7 g/dL. She did receive one dose of DDAVP yesterday. Capsule endoscopy did reveal evidence of small intestinal bleeding. Patient needs further endoscopy, and at this time we are awaiting the specialized scope. On examination, patient is comfortable. Blood pressure is not easily recordable. Heart rate 102 to 98 per minute. She is afebrile. EXAMINATION OF THE HEART: S1 and S2. EXAMINATION OF THE LUNGS: Bilateral breath sounds are heard. ABDOMEN: Soft, obese, nontender. Examination of lower extremities shows no significant edema. Labs show hemoglobin 9.2, white cell count 5.9. ASSESSMENT: 1. End-stage renal disease, on hemodialysis on a Tuesday, Tuesday, Tuesday schedule. Will arrange for hemodialysis in a.m. 2. Gastrointestinal bleed. I will give another dose of DDAVP and await further endoscopy based on the findings of the capsule endoscopy. 3. Hypokalemia, status post replacement. PLAN: Hemodialysis in a.m. Continue to monitor CBC.
[2016-10-05 22:04] LABS: Glucose,Whole Blood 256 mg/dL (75-99)
[2016-10-06 05:06] LABS: Anisocytosis Slight; Basophils % (A) 0 %; CH 28.6; Eosinophils # (A) 0.2 k/uL (0-0.7); Eosinophils % (A) 2 %; HCT 32.6 % (34.0-46.0); HDW 3.72; HGB 9.9 gm/dL (11.4-16.0); Hypochromasia Marked; Large Platelets Flag Slight; Luc # (Auto) 0.14; Luc % (Auto) 2; Lymphocytes # (A) 0.7 k/uL (1.0-4.8); Lymphocytes % (A) 11 %; MCH 30.4 pg (25.0-35.0); MCHC 30.3 g/dL (31.0-37.0); MCV 100.2 fL (80.0-100.0); Macrocytosis Moderate; Mean Platelet Volume 11.1; Monocytes # (A) 0.4 k/uL (0-1.0); Monocytes % (A) 6 %; Neutrophils # (A) 5.3 k/uL (1.3-7.7); Neutrophils % (A) 79 %; Poikilocytosis Slight; RBC 3.25 m/uL (3.80-5.40); RDW 18.7 % (11.5-15.5); WBC 6.7 k/uL (3.8-10.6); WBC (Perox) 7.68
[2016-10-06 05:20] LABS: Calcium 9.4 mg/dL (8.4-10.2); Magnesium 2.4 mg/dL (1.6-2.3); Phosphorous 4.9 mg/dL (2.5-4.5); Potassium 4.3 mmol/L (3.5-5.1); Total Bilirubin 1.1 mg/dL (0.2-1.3); Total Protein 6.1 g/dL (6.3-8.2)
[2016-10-06] MEDS: HYDROmorphone 1 MG/ML 1 ML SYRINGE IVP PRN ×2 (06:16→11:51)
--- NOTE | 2016-10-06 06:53 | XR ---
EXAMINATION TYPE: XR chest 1V DATE OF EXAM: 10/06/2016 6:45 AM CLINICAL HISTORY: Difficulty breathing and CHF progress study. TECHNIQUE: Single AP portable upright view of the chest is obtained. COMPARISON: Chest x-ray from one day earlier FINDINGS: There is cardiomegaly with multi lead pacemaker/AICD. Sternal wires and mediastinal clips are redemonstrated. There is small to moderate-sized right pleural effusion. There is right lower grady g atelectasis and/or infiltrate. There is patchy left basilar atelectasis and/or infiltrate. No pneum othorax is seen bilaterally. Osseous structures are intact. IMPRESSION: Overall stable findings, cardiomegaly with small to moderate-sized right pleural effusi on and associated right lower lung atelectasis and/or infiltrate with patchy left basilar atelectasis all redemonstrated.
[2016-10-06] MEDS: IPRATROPIUM-ALBUTEROL 3 ML NEB INHALATION SCH ×4 (07:52→19:51)
--- NOTE | 2016-10-06 08:05 | P.PN ---
Subjective 65-year-old white female essentially admitted for recurrent GI bleeding. Capsule endoscopy is pending. She states pain is well controlled. No voiding difficulties. No significant chest pain or shortness of breath. Objective - Vital Signs Vital signs: Vital Signs Temp 98.7 F 10/06/16 04:00 Pulse 100 10/06/16 07:52 Resp 15 10/06/16 07:00 BP 45/31 10/04/16 19:00 Pulse Ox 98 10/06/16 07:00 Intake & Output 10/05/16 10/06/16 10/06/16 18:59 06:59 18:59 Intake Total 540 490 20 Output Total 3350 450 Balance -2810 40 20 Weight 84.5 kg Intake: Intake, IV Titration 340 240 20 Amount Desmopressin Inj 20 mcg 100 In Sodium Chloride 0.9% 50 ml @ 200 mls/hr IVPB ONCE ONE Rx#:[id number] Sodium Chloride 0.9% 1, 240 240 20 000 ml @ 20 mls/hr IV . Q24H [facility] Rx#:[id number] Oral 200 250 Output: Stool 3350 450 Other: # Bowel Movements 2 - Constitutional General appearance: Present: obese - EENT Eyes: Absent: abnormal pupil - Neck Neck: Absent: lymphadenopathy - Respiratory Respiratory: bilateral: diminished - Cardiovascular Rhythm: irregularly irregular Heart sounds: normal: S1, S2 - Gastrointestinal General gastrointestinal: Present: soft. Absent: tenderness - Musculoskeletal Musculoskeletal: Present: generalized weakness - Psychiatric Psychiatric: Present: A&O x's 3 - Labs CBC & Chem 7: 10/06/16 04:26 10/06/16 04:26 Labs: Abnormal Lab Results - Last 24 Hours (Table) 10/05/16 10/05/16 10/05/16 Range/Units 11:45 12:23 17:40 RBC 3.14 L (3.80-5.40) m/uL Hgb 9.2 L (11.4-16.0) gm/dL Hct 29.7 L (34.0-46.0) % MCV (80.0-100.0) fL MCHC (31.0-37.0) g/dL RDW 19.1 H (11.5-15.5) % Plt Count 83 L (150-450) k/uL Lymphocytes # 0.8 L (1.0-4.8) k/uL BUN (7-17) mg/dL Creatinine (0.52-1.04) mg/dL Glucose (74-99) mg/dL POC Glucose (mg/dL) 157 H 265 H (75-99) mg/dL Phosphorus (2.5-4.5) mg/dL Magnesium (1.6-2.3) mg/dL Alkaline Phosphatase (38-126) U/L Total Protein (6.3-8.2) g/dL Albumin (3.5-5.0) g/dL 10/05/16 10/05/16 10/05/16 Range/Units 17:43 19:08 22:01 RBC 3.24 L (3.80-5.40) m/uL Hgb 9.7 L (11.4-16.0) gm/dL Hct 31.2 L (34.0-46.0) % MCV (80.0-100.0) fL MCHC (31.0-37.0) g/dL RDW 18.9 H (11.5-15.5) % Plt Count 91 L (150-450) k/uL Lymphocytes # (1.0-4.8) k/uL BUN (7-17) mg/dL Creatinine (0.52-1.04) mg/dL Glucose (74-99) mg/dL POC Glucose (mg/dL) 248 H 256 H (75-99) mg/dL Phosphorus (2.5-4.5) mg/dL Magnesium (1.6-2.3) mg/dL Alkaline Phosphatase (38-126) U/L Total Protein (6.3-8.2) g/dL Albumin (3.5-5.0) g/dL 10/06/16 10/06/16 Range/Units 04:26 04:26 RBC 3.25 L (3.80-5.40) m/uL Hgb 9.9 L (11.4-16.0) gm/dL Hct 32.6 L (34.0-46.0) % MCV 100.2 H (80.0-100.0) fL MCHC 30.3 L (31.0-37.0) g/dL RDW 18.7 H (11.5-15.5) % Plt Count 104 L (150-450) k/uL Lymphocytes # 0.7 L (1.0-4.8) k/uL BUN 31 H (7-17) mg/dL Creatinine 4.80 H (0.52-1.04) mg/dL Glucose 105 H (74-99) mg/dL POC Glucose (mg/dL) (75-99) mg/dL Phosphorus 4.9 H (2.5-4.5) mg/dL Magnesium 2.4 H (1.6-2.3) mg/dL Alkaline Phosphatase 147 H (38-126) U/L Total Protein 6.1 L (6.3-8.2) g/dL Albumin 3.1 L (3.5-5.0) g/dL Assessment and Plan (1) Anemia Status: Acute (2) Hematochezia Status: Acute (3) Acute GI bleeding Status: Acute (4) Diabetes 1.5, managed as type 2 Status: Acute (5) Hx of CABG Status: Acute (6) Renal failure (ARF), acute on chronic Status: Acute Plan: Check CBC and CPK in a.m. Await capsule endoscopy. Appreciate pulmonology, nephrology and GI input. I did have a long discussion with the patient as far as regarding possibilities of surgery versus finding nothing in endoscopy procedure.
[2016-10-06] MEDS: INSULIN LISPRO (humaLOG) 300 UNIT/3 ML VIAL SQ SCH ×3 (08:48→18:15)
[2016-10-06 08:49] LABS: Glucose,Whole Blood 159 mg/dL (75-99)
[2016-10-06] MEDS: FOLIC ACID-VIT B COMPLEX-VIT C 1 CAP PO SCH (08:50)
[2016-10-06] MEDS: PANTOPRAZOLE 40 MG/10 ML VIAL IV SCH (08:50)
[2016-10-06] MEDS: CALCIUM ACETATE 667 MG CAP PO SCH ×3 (08:50→18:15)
[2016-10-06] MEDS: HYDROcodone/APAP 10-325MG 1 EACH TAB PO PRN (08:58)
[2016-10-06] MEDS ORDERED: CINACALCET 30 MG TAB PO SCH (09:00)
--- NOTE | 2016-10-06 09:15 | P.PN ---
Subjective Progress note dated 10/05/2016 This is a patient who was seen again today. Seen yesterday with my nurse practitioner. She's doing well. Had hemodialysis performed. The patient ended up receiving 4 units of blood totally. Also receiving 1 dose of desmopressin. Also received is receiving appointment 9 IV at [facility]. The patient seemed to be relatively stable. Likely later today, she remains stable she can move out to the floor. She is getting O2 at 2 L. No complaints today. Looks well. The patient has a history of multiple medical problems including acute GI bleeding diverticulosis end-stage renal disease on hemodialysis CHF CAD previous bypass grafting AICD placement aortic valve replacement chronic hypotension CVA and aortic stenosis. Progress note dated 10/06/2016 This pleasant 65-year-old female who was admitted back on October 02 with GI bleed has multiple medical problems including diverticulosis end-stage renal disease currently on hemodialysis heart failure CAD bypass grafting AICD placement aortic valve replacement chronic hypotension CVA and aortic stenosis. The patient continues to have significant output from the rectum with significant ongoing GI bleed. She apparently supposed to have a small bowel endoscopy today by Dr. Daugherty. She's currently on O2 at 4 L. Appointment 9 IV was at [facility]. Other than that she's doing about the same. Looks very good. Objective - Vital Signs Vital signs: Vital Signs Temp 98.8 F 10/06/16 08:00 Pulse 102 H 10/06/16 09:00 Resp 18 10/06/16 09:00 BP 45/31 10/04/16 19:00 Pulse Ox 95 10/06/16 09:00 Intake & Output 10/05/16 10/06/16 10/06/16 18:59 06:59 18:59 Intake Total 540 490 60 Output Total 3350 450 Balance -2810 40 60 Weight 84.5 kg 86.226 kg Intake: Intake, IV Titration 340 240 60 Amount Desmopressin Inj 20 mcg 100 In Sodium Chloride 0.9% 50 ml @ 200 mls/hr IVPB ONCE ONE Rx#:[id number] Sodium Chloride 0.9% 1, 240 240 60 000 ml @ 20 mls/hr IV . Q24H [facility] Rx#:[id number] Oral 200 250 Output: Stool 3350 450 Other: # Bowel Movements 2 - Exam No acute distress, oriented 3. Awake and alert. Is unremarkable. Mucous membranes are moist. No oral lesions. Neck supple. Full range of motion. No adenopathy. Cardiovascular examination reveals regular rhythm rate. S1-S2 normal. No distinct murmur noted. Lungs are clear breath sounds are equal. No wheezes rhonchi or crackles. Abdomen soft bowel sounds are heard. Extremities are intact. - Labs CBC & Chem 7: 10/06/16 04:26 10/06/16 04:26 Labs: Abnormal Lab Results - Last 24 Hours (Table) 10/05/16 10/05/16 10/05/16 Range/Units 11:45 12:23 17:40 RBC 3.14 L (3.80-5.40) m/uL Hgb 9.2 L (11.4-16.0) gm/dL Hct 29.7 L (34.0-46.0) % MCV (80.0-100.0) fL MCHC (31.0-37.0) g/dL RDW 19.1 H (11.5-15.5) % Plt Count 83 L (150-450) k/uL Lymphocytes # 0.8 L (1.0-4.8) k/uL BUN (7-17) mg/dL Creatinine (0.52-1.04) mg/dL Glucose (74-99) mg/dL POC Glucose (mg/dL) 157 H 265 H (75-99) mg/dL Phosphorus (2.5-4.5) mg/dL Magnesium (1.6-2.3) mg/dL Alkaline Phosphatase (38-126) U/L Total Protein (6.3-8.2) g/dL Albumin (3.5-5.0) g/dL 10/05/16 10/05/16 10/05/16 Range/Units 17:43 19:08 22:01 RBC 3.24 L (3.80-5.40) m/uL Hgb 9.7 L (11.4-16.0) gm/dL Hct 31.2 L (34.0-46.0) % MCV (80.0-100.0) fL MCHC (31.0-37.0) g/dL RDW 18.9 H (11.5-15.5) % Plt Count 91 L (150-450) k/uL Lymphocytes # (1.0-4.8) k/uL BUN (7-17) mg/dL Creatinine (0.52-1.04) mg/dL Glucose (74-99) mg/dL POC Glucose (mg/dL) 248 H 256 H (75-99) mg/dL Phosphorus (2.5-4.5) mg/dL Magnesium (1.6-2.3) mg/dL Alkaline Phosphatase (38-126) U/L Total Protein (6.3-8.2) g/dL Albumin (3.5-5.0) g/dL 10/06/16 10/06/16 10/06/16 Range/Units 04:26 04:26 08:48 RBC 3.25 L (3.80-5.40) m/uL Hgb 9.9 L (11.4-16.0) gm/dL Hct 32.6 L (34.0-46.0) % MCV 100.2 H (80.0-100.0) fL MCHC 30.3 L (31.0-37.0) g/dL RDW 18.7 H (11.5-15.5) % Plt Count 104 L (150-450) k/uL Lymphocytes # 0.7 L (1.0-4.8) k/uL BUN 31 H (7-17) mg/dL Creatinine 4.80 H (0.52-1.04) mg/dL Glucose 105 H (74-99) mg/dL POC Glucose (mg/dL) 159 H (75-99) mg/dL Phosphorus 4.9 H (2.5-4.5) mg/dL Magnesium 2.4 H (1.6-2.3) mg/dL Alkaline Phosphatase 147 H (38-126) U/L Total Protein 6.1 L (6.3-8.2) g/dL Albumin 3.1 L (3.5-5.0) g/dL Assessment and Plan (1) Anemia Status: Acute (2) Lower gastrointestinal hemorrhage Status: Acute (3) Renal failure Status: Acute (4) Acute GI bleeding Status: Acute (5) Congestive heart failure (CHF) Status: Acute (6) GI hemorrhage Status: Acute (7) Hx of CABG Status: Acute (8) Hx of aortic valve replacement Status: Acute (9) Hyperlipemia Status: Acute (10) Hypotension Status: Acute (11) Unstable angina pectoris Status: Acute Plan: Plan dated 10/05/2016 The patient is doing well. We'll continue to follow closely. We'll review the labs x-rays medications. Later today if the patient remains stable she go onto the floor. No additional recommendations are made. Prognosis is guarded. Plan dated 10/06/2016 The patient is doing well. We'll have a small bowel endoscopy today. She still has continued output from her rectum. Apparently ongoing GI bleed. We' ll continue to follow. No additional recommendations are made. Time with Patient: Less than 30
[2016-10-06 11:55] LABS: Glucose,Whole Blood 166 mg/dL (75-99)
[2016-10-06 12:07] VITALS: TEMP 99.1
[2016-10-06] MEDS ORDERED: GLYCOPYRROLATE 0.2 MG/ML 2 ML VIAL ONE (13:01)
[2016-10-06] MEDS ORDERED: KETAMINE 10 MG/ML 20 ML VIAL ONE (13:01)
[2016-10-06] MEDS ORDERED: PROPOFOL 10 MG/ML 20 ML VIAL IV ONE (13:01)
[2016-10-06] MEDS ORDERED: MIDAZOLAM 2 MG/2 ML VIAL ONE (13:01)
--- NOTE | 2016-10-06 13:34 | P.PCN ---
Date of Procedure: 10/06/16 Procedure(s) Performed: BRIEF HISTORY: Patient is a 65-year-old, pleasant, at female, admitted to the hospital with balloon colored stools for the last 3 days' duration. She presented with a hemoglobin of 6.5 and so far he received total of 4 units of PRBC transfusion. She has liquid maroon colored stools almost 1-1.5 L every day. She had an upper endoscopy done by Dr. Romero week ago which was unremarkable other than small hiatal hernia and mild gastritis. She was discharged home and was readmitted within a day with acute GI bleed. She did have a colonoscopy done by Dr. Gregorio in March 2016 that showed diverticulosis. As a part of workup she had a small bowel capsule endoscopy yesterday which showed fresh bleeding with clots in the mid part of the small bowel, approximately 2 hours after the capsule entered the duodenum. However the capsule did not into the cecum at the 8 hour study . This capsule stayed in the stomach for total of 5 hours before entering the small bowel and hence it was unclear as to the site of small bowel source of bleeding. She is hence scheduled for small bowel enteroscopy today. PROCEDURE PERFORMED: Esophagogastroduodenoscopy/enteroscopy. PREOPERATIVE DIAGNOSIS: Acute GI bleed. IV sedation per anesthesia. PROCEDURE: After informed consent was obtained, the patient was brought into the endoscopy unit. IV conscious sedation was administered by Anesthesia under continuous monitoring. Initially the Olympus GIF-140 video endoscope was inserted into the mouth. Esophagus intubated without any difficulty. It was gradually advanced into the stomach and duodenum and into the mid jejunum and approximately the scope was advanced at least 5-6 feet into the proximal small bowel. No active bleeding visualized in the small bowel that was examined. The visualization portions of the proximal jejunum and mid-jejunum appeared normal except there were 2 small nonbleeding arterial venous malformation is identified but no active bleeding. The duodenum appeared normal. The scope at this time was withdrawn to the stomach, adequately insufflated with air, and upon careful examination, mucosa of the antrum, body, cardia and the fundus appeared normal. The scope was then withdrawn into the esophagus. The GE junction was located at 39 cm from the incisors. The esophagus appeared normal. There were no erosions or ulcerations seen and the patient tolerated the procedure well. IMPRESSION: 1. Duodenum, proximal and mid jejunum appeared normal with no evidence of active GI bleed. 2. Mild gastritis. RECOMMENDATIONS: The findings of this examination were discussed with the patient as well as her family. At this time it appears that the source of small bowel bleeding is much distal to the area to examine and hence it'll be appropriate to transfer the patient to a tertiary care Hospital for possible double balloon enteroscopy to evaluate the source of small bowel bleeding.
[2016-10-06] MEDS ORDERED: DESMOPRESSIN INJ 20 MCG in SODIUM CHLORIDE 0.9% 50 ML IVPB ONE (14:00)
[2016-10-06] MEDS ORDERED: LACTATED RINGERS 1,000 ML IV SCH (14:01)
[2016-10-06 14:11] VITALS: BMI 34.7
[2016-10-06 17:21] LABS: Glucose,Whole Blood 188 mg/dL (75-99)
[2016-10-06 18:51] VITALS: BP 60/35; PULSE 102; RESP 25
--- NOTE | 2016-10-06 21:44 | PN ---
Patient is seen for follow-up for end-stage renal disease. She had an enteroscopy this morning, which was not able to identify the bleeding in the small bowel. Patient continues to have maroon -colored stools and she is being transferred to [facility]. Patient is scheduled for hemodialysis today; however, she remains stable with no evidence of fluid overload or hyperkalemia. If she is transferred, she can be dialyzed either at the other facility or in a.m. On examination, the patient is comfortable. She is not in any acute distress. Blood pressure remains 59/31, which is most likely not accurate. Her mentation is intact. Heart rate is about 101 per minute. The patient is afebrile. Examination of the heart S1 and S2 examination of the lungs: Bilateral breath sounds are heard. Examination of lower extremities shows chronic skin changes. No significant edema is noted. CORPORATE PLANNER exam shows patient is moving all 4 extremities. Labs show sodium of 144, potassium 4.3. Hemoglobin 9.9 g/dL. ASSESSMENT: 1. End-stage renal disease on hemodialysis on a Tuesday, Tuesday, Tuesday schedule. 2. Gastrointestinal bleed with multiple admissions for the same currently with ongoing bleeding with maroon -colored stools. Will repeat another dose of DDAVP. Patient is being considered for transfer to [facility]. She had an enteroscopy this morning, which did not identify the source of bleeding. 3. Chronic kidney disease bone mineral disorder. 4. Anemia secondary to gastrointestinal bleed. 5. Hypotension. The patient normally runs low blood pressure and the blood pressure has not been accurate. She is alert and oriented and conversive. PLAN: Hemodialysis today if patient is still; otherwise she can be dialyzed tomorrow if she is transferred to another facility. At this time it is more important to transfer for active GI bleeding. She is currently stable from nephrology standpoint.
--- NOTE | 2016-11-14 21:26 | P.DS ---
Providers Date of admission: 10/02/16 17:19 Attending physician: Nishant Garcia Primary care physician: Nishant Garcia - Discharge Diagnosis(es) (1) Anemia Status: Acute (2) Hematochezia Status: Acute (3) Acute GI bleeding Status: Acute (4) Diabetes 1.5, managed as type 2 Status: Acute (5) Hx of CABG Status: Acute (6) Renal failure (ARF), acute on chronic Status: Acute Hospital Course: The patient is a 58-year-old white female who has had significant multiple hospitalizations for GI bleeding. She ended up having previous upper and lower endoscopy. This did not show any active bleeding at this time. She continued however to have significant GI distress and bleeding with anemia requiring transfusions. She ended up having a capsule endoscopy. After this was done, she was found to have a small bowel bleed. Because of the technical expertise necessary to repair this problem, and her multiple comorbidities of diabetes and atrial fibrillation, she was transferred to tertiary center of [facility]. They have accepted the patient for transfer at this time. I have discussed with their medical team. Patient Condition at Discharge: Serious Plan - Discharge Summary Discharge Medication List Cinacalcet HCl [Sensipar] 30 mg PO DAILY@169904/07/14 [History] Montelukast [Singulair] 10 mg PO HS@209904/07/14 [History] Simvastatin [Zocor] 40 mg PO HS@209908/18/15 [History] Cinacalcet HCl [Sensipar] 90 mg PO DAILY@169904/02/16 [History] Escitalopram [Lexapro] 40 mg PO DAILY@79904/02/16 [History] rOPINIRole HCL [Ropinirole HCl] 2 mg PO HS@209904/02/16 [History] Cevimeline HCl 30 mg PO DAILY@0805/28/16 [History] Insulin Aspart [NovoLOG] See Protocol SQ ACHS 05/28/16 [History] Calcium Acetate [PhosLo] 667 mg PO TID@0800,1200,1700 09/17/16 [History] Clopidogrel Bisulfate [Plavix] 75 mg PO DAILY@0800 09/17/16 [History] Docusate [Colace] 100 mg PO BID@0800,17009/17/16 [History] Bisacodyl [Dulcolax] 10 mg RECTAL DAILY PRN 09/24/16 [History] Folic Acid-Vit B Complex-Vit C [Nephrocaps] 1 cap PO DAILY@1700 09/24/16 [ History] Magnesium Hydroxide [Milk of Magnesia] 2,400 mg PO DAILY PRN 09/24/16 [History] Na Phos,M-B/Na Phos,Di-Ba [Fleet Adult] 133 ml RECTAL ONCE PRN 09/24/16 [History ] Nepro 1 can PO BID@0800,1700 09/24/16 [History] Pantoprazole Sodium [Protonix] 40 mg PO DAILY@0800 09/24/16 [History] ALPRAZolam [Xanax] 0.5 mg PO TID PRN #90 tab 10/01/16 [Rx] Ipratropium-Albuterol Nebulize [Duoneb 0.5 mg-3 mg/3 ml Soln] 3 ml INHALATION RT -QID ampul.neb 10/01/16 [Rx] HYDROcodone/APAP 10-325MG [[place] 10-325] 1 tab PO Q4H PRN 10/02/16 [History] Follow up Appointment(s)/Referral(s): Nishant Gacria MD [Primary Care Provider] - 1-2 days Discharge [facility]
== END 2016-10-06 22:06 | disposition short-term general hospital (02) | DRG 377 ==
LOC: EC 14:03 → 6ICU 17:19
PROVIDERS: ADMIT Family Medicine; ATTEND Family Medicine
PROC: 5A1D00Z (ICD-10-PCS; 2016-10-04)
PROC: 0DJ08ZZ Inspection of Upper Intestinal Tract, Via Natural or Artificial Opening Endoscopic (ICD-10-PCS; 2016-10-05)
PROC: 30243N1 Transfusion of Nonautologous Red Blood Cells into Central Vein, Percutaneous Approach (ICD-10-PCS; 2016-10-06)
PROC: 0DJ08ZZ Inspection of Upper Intestinal Tract, Via Natural or Artificial Opening Endoscopic (ICD-10-PCS; principal; 2016-10-06 12:10)
DX: K92.2 Gastrointestinal hemorrhage, unspecified (principal); N18.6 End stage renal disease; I50.21 Acute systolic (congestive) heart failure; G93.41 Metabolic encephalopathy; L89.159 Pressure ulcer of sacral region, unspecified stage; N17.9 Acute kidney failure, unspecified; I13.2 Hypertensive heart and chronic kidney disease with heart failure and with stage 5 chronic kidney disease, or end stage renal disease; D62 Acute posthemorrhagic anemia; I25.110 Atherosclerotic heart disease of native coronary artery with unstable angina pectoris; E11.22 Type 2 diabetes mellitus with diabetic chronic kidney disease; I95.89 Other hypotension; I48.91 Unspecified atrial fibrillation; M41.9 Scoliosis, unspecified; H35.30 Unspecified macular degeneration; I25.2 Old myocardial infarction; E78.5 Hyperlipidemia, unspecified; J45.909 Unspecified asthma, uncomplicated; K44.9 Diaphragmatic hernia without obstruction or gangrene; K29.70 Gastritis, unspecified, without bleeding; K57.90 Diverticulosis of intestine, part unspecified, without perforation or abscess without bleeding; D50.0 Iron deficiency anemia secondary to blood loss (chronic); E66.9 Obesity, unspecified; E87.6 Hypokalemia; Z68.34 Body mass index [BMI] 34.0-34.9, adult; Z71.3 Dietary counseling and surveillance; Z99.2 Dependence on renal dialysis; Z86.14 Personal history of Methicillin resistant Staphylococcus aureus infection; Z87.891 Personal history of nicotine dependence; Z95.1 Presence of aortocoronary bypass graft; Z95.810 Presence of automatic (implantable) cardiac defibrillator; Z88.2 Allergy status to sulfonamides; Z86.73 Personal history of transient ischemic attack (TIA), and cerebral infarction without residual deficits; Z95.2 Presence of prosthetic heart valve; Z16.24 Resistance to multiple antibiotics; Z79.02 Long term (current) use of antithrombotics/antiplatelets; Z79.4 Long term (current) use of insulin; Z79.899 Other long term (current) drug therapy
CPT/HCPCS: 36415; 44361; 71010; 74020; 80048; 80053; 80299; 82272; 82550; 82553; 83036; 83735; 83880; 84100; 84132; 84484; 85025; 85027; 85610; 85730; 86704; 86706; 86850; 86900; 86901; 86920; 87324; 87340; 90935; 91110; 93005; 94640; 96361; 96365; 96366; 96375; 96376; 99153; 99291